=== PATIENT | male | born 1930 | race Caucasian/White ===

== ENCOUNTER 2017-02-15 22:45 | Inpatient (IN) | payer OTHER, MEDICARE ==
--- NOTE | 2017-02-16 00:49 | PDOC ---
History of Present Illness - General History Source: Patient Exam Limitations: No Limitations - History of Present Illness Initial Comments: 02/16/17 01:29 The patient is a 86 year old male with a significant past medical history of TX X2 HAS A STENT, pacemaker in place, BPH, HTN, and Appendectomy, who presents to the ED with fever and chills since . Patient states he had a stress test done on Thursday that showed mild damage to the heart. Patient denies chest pain, SOB, palpitations, nausea, vomiting, diarrhea. Patient denies dysuria, frequency, hematuria, urgency. <Jarocho Hernández - Last Filed: 02/16/17 01:29> <Sultana Berger - Last Filed: 02/16/17 03:30> - General Chief Complaint: SIRS, Suspected/Possible Stated Complaint: HIGH FEVER Time Seen by Provider: 02/16/17 00:48 Past History <Jarocho Hernández - Last Filed: 02/16/17 01:29> - Past Medical History Anemia: No Asthma: No Cancer: Yes (SQUAMOUS CELL FACE-SURGERY) Cardiac Disorders: Yes (TX X2 HAS A STENT) CVA: No COPD: No CHF: No Dementia: No Diabetes: No GI Disorders: No Disorders: No HTN: Yes Hypercholesterolemia: No Liver Disease: No Seizures: No Thyroid Disease: No - Surgical History Appendectomy: Yes Cardiac Surgery: Yes (PACEMAKER) - Psycho/Social/Smoking Cessation Hx Suicidal Ideation: No Smoking History: Never smoked Have you smoked in the past 12 months: No Information on smoking cessation initiated: No Hx Alcohol Use: No Drug/Substance Use Hx: No Substance Use Type: None Hx Substance Use Treatment: No <Sultana Berger - Last Filed: 02/16/17 03:30> - Past Medical History Allergies/Adverse Reactions: Allergies Allergy/AdvReac Type Severity Reaction Status Date / Time Sulfa (Sulfonamide Allergy Severe RASH,HIVES,DIFF Verified 02/15/17 23:37 Antibiotics) BREATHING Home Medications: Ambulatory Orders Ascorbate Calcium [Vitamin C] 1,000 mg PO DAILY 11/20/14 Aspirin [ASA -] 81 mg PO DAILY 11/20/14 Atorvastatin Ca [Lipitor -] 20 mg PO HS 11/20/14 Calcium Carbonate/Vitamin D3 [Calcium + Vitamin D Tablet] 1 each PO DAILY Cyanocobalamin [Vitamin B12 -] 100 mcg PO DAILY 11/20/14 Isosorbide Mononitrate [Imdur] 60 mg PO DAILY 11/20/14 Metoprolol Succinate [Toprol Xl] 50 mg PO DAILY 11/20/14 Tamsulosin HCl [Flomax] 0.4 mg PO DAILY 11/20/14 Ubidecarenone [Co Q-10] 10 mg PO DAILY 11/20/14 Vitamin B Complex 1 each PO DAILY 11/20/14 Apixaban [Eliquis] 5 mg PO BID 02/16/17 Ca/D3/Mag#11/Zinc/Promotion Manager/Lionel/Bor [Caltrate 600+D Plus Tablet] 1 tab PO BID Saw [place] Fruit [Saw [place]] 450 mg PO DAILY 02/16/17 Review of Systems - Review of Systems Able to Perform ROS?: Yes Comments:: 02/16/17 01:29 CONSTITUTIONAL: Present: fever, chills. Absent: diaphoresis, generalized weakness, malaise, loss of appetite HEENT: Absent: rhinorrhea, nasal congestion, throat pain, throat swelling, difficulty swallowing, mouth swelling, ear pain, eye pain, visual Changes CARDIOVASCULAR: Absent: chest pain, syncope, palpitations, irregular heart rate, lightheadedness , peripheral edema RESPIRATORY: Absent: cough, shortness of breath, dyspnea with exertion, orthopnea, wheezing, stridor, hemoptysis GASTROINTESTINAL: Absent: abdominal pain, abdominal distension, nausea, vomiting, diarrhea, constipation, melena, hematochezia GENITOURINARY: Absent: dysuria, frequency, urgency, hesitancy, hematuria, flank pain, genital pain MUSCULOSKELETAL: Absent: myalgia, arthralgia, joint swelling SKIN: Absent: rash, itching, pallor HEMATOLOGIC/IMMUNOLOGIC: Absent: easy bleeding, easy bruising, lymphadenopathy, frequent infections ENDOCRINE: Absent: unexplained weight gain, unexplained weight loss, heat intolerance, cold intolerance NEUROLOGIC: Absent: headache, focal weakness or paresthesias, dizziness, unsteady gait, seizure, mental status changes, bladder or bowel incontinence PSYCHIATRIC: Absent: anxiety, depression, suicidal or homicidal ideation, hallucinations. <Jarocho Hernández - Last Filed: 02/16/17 01:29> *Physical Exam - Vital Signs Last Vital Signs Temp Pulse Resp BP Pulse Ox 101.5 F H 91 H 20 142/77 96 02/15/17 23:40 02/15/17 23:40 02/15/17 23:40 02/15/17 23:40 02/15/17 23:40 - Physical Exam Comments: 02/16/17 01:30 GENERAL: Well developed, well nourished. Awake and alert. No acute distress. HEENT: Normocephalic, atraumatic. PERRLA, EOMI. No conjunctival pallor. Sclera are non- icteric. Moist mucous membranes. Oropharynx is clear. NECK: Supple. Full ROM. No JVD. Carotid pulses 2+ and symmetric, without bruits. No thyromegaly. No lymphadenopathy. CARDIOVASCULAR: Regular rate and rhythm. No murmurs, rubs, or gallops. Distal pulses are 2+ and symmetric. PULMONARY: No evidence of respiratory distress. Lungs clear to auscultation bilaterally. No wheezing, rales or rhonchi. ABDOMINAL: Soft. Non-tender. Non-distended. No rebound or guarding. No organomegaly. Normoactive bowel sounds. MUSCULOSKELETAL Normal range of motion at all joints. No bony deformities or tenderness. No CVA tenderness. EXTREMITIES: No cyanosis. No clubbing. No edema. No calf tenderness. SKIN: Warm and dry. Normal capillary refill. No rashes. No jaundice. NEUROLOGICAL: Alert, awake, appropriate. Cranial nerves 2-12 intact. No deficits to light touch and temperature in face, upper extremities and lower extremities. No motor deficits in the in face, upper extremities and lower extremities. Normoreflexic in the upper and lower extremities. Normal speech. Toes are down-going bilaterally. Gait is normal without ataxia. PSYCHIATRIC: Cooperative. Good eye contact. Appropriate mood and affect. <Jarocho Hernández - Last Filed: 02/16/17 01:29> - Vital Signs Last Vital Signs Temp Pulse Resp BP Pulse Ox 101.5 F H 91 H 20 142/77 96 02/15/17 23:40 02/15/17 23:40 02/15/17 23:40 02/15/17 23:40 02/15/17 23:40 <Sultana Berger - Last Filed: 02/16/17 03:30> ED Treatment Course - LABORATORY CBC & Chemistry Diagram: 02/16/17 01:00 02/16/17 01:00 <Sultana Berger - Last Filed: 02/16/17 03:30> Medical Decision Making - Medical Decision Making 02/16/17 03:27 86 yo male coming from [facility] fever and rigors for several days PMH BPH,thoracic aortic aneurysm,cad -had stress test last week that states was ok - pt had leukocytosis,+infiltrate on cxr -rocephin and zithromax ordered -case discussed w Dr Campos and pt admitted to med/surg <Sultana Berger - Last Filed: 02/16/17 03:30> *DC/Admit/Observation/Transfer - Attestations Scribe Attestion: 02/16/17 01:31 Documentation prepared by Jarocho Hernández, acting as medical assisting instructor for Sultana Berger MD. <Jarocho Hernández - Last Filed: 02/16/17 01:29> - Discharge Dispostion Admit: Yes <Sultana Berger - Last Filed: 02/16/17 03:30> Diagnosis at time of Disposition: Sepsis Qualifiers: Sepsis type: sepsis due to unspecified organism Qualified Code(s): A41.9 - Sepsis, unspecified organism - Referrals
[2017-02-16 01:39] LABS: BASOPHIL 0.2 % (0-2.0); MCH 30.7 pg (25.7-33.7); MCHC 32.8 g/dl (32.0-35.9); MEAN CELL VOLUME 93.5 fl (80-96); MEAN PLT VOLUME 11.4 fl (7.5-11.1); NEUTROPHILS 86.4 % (42.8-82.8); PLATELET COUNT 138 K/MM3 (134-434); RDW 13.8 % (11.9-15.9); WHITE BLOOD COUNT 15.4 K/mm3 (4.0-10.0)
[2017-02-16 01:41] LABS: URINE APPEARANCE CLEAR; URINE BILIRUBIN NEGATIVE (NEGATIVE); URINE COLOR AMBER; URINE GLUCOSE (UA) NEGATIVE (NEGATIVE); URINE KETONE TRACE (NEGATIVE); URINE LEUK ESTERASE NEGATIVE (NEGATIVE); URINE NITRITE NEGATIVE (NEGATIVE); URINE UROBILINOGEN 4.0 E.U/dl mg/dL (0.2-1.0)
[2017-02-16 01:45] LABS: VENOUS PH 7.45 (7.32-7.42)
[2017-02-16 01:45] LABS: URINE BLOOD 1+ (NEGATIVE); URINE PROTEIN 2+ (NEGATIVE)
[2017-02-16 01:46] LABS: VENOUS BLOOD GAS HCO3 28.6 meq/L (19-25)
[2017-02-16 01:48] LABS: URINE MUCUS RARE; URINE RBC 1 /hpf (0-3); URINE WBC 1 /hpf (3-5)
[2017-02-16 01:51] LABS: INR 1.82 (0.82-1.09); PROTHROMBIN TIME (PATIENT) 20.3 SEC (9.98-11.88)
[2017-02-16 01:54] LABS: ACTIVATED PTT 36.2 SECONDS (26.9-34.4)
[2017-02-16] MEDS: ACETAMINOPHEN 325 MG TABLET (FP) PO PRN ×3 (01:55→17:08)
[2017-02-16 02:03] LABS: ALBUMIN 3.8 g/dl (3.4-5.0); ANION GAP 8 (8-16); BILIRUBIN,TOTAL 2.7 mg/dL (0.2-1.0); CALCIUM 8.6 mg/dL (8.5-10.1); CO2 30 mmol/L (21-32); GLUCOSE,RANDOM 133 mg/dL (74-106); SGOT/AST 42 U/L (15-37); SGPT/ALT 40 U/L (12-78); TOT PROT 6.7 g/dl (6.4-8.2)
[2017-02-16 02:06] LABS: ALK PHOS 89 U/L (45-117); TROPONIN I 0.03 ng/ml (0.00-0.05)
[2017-02-16] MEDS ORDERED: AZITHROMYCIN IVPB 500 MG in DEXTROSE 5%-WATER - 250 ML IVPB STA (02:26)
[2017-02-16] MEDS ORDERED: AZITHROMYCIN IVPB 250 ML IVPB ONE (02:40)
[2017-02-16 04:29] VITALS: BMI 32.7
[2017-02-16] MEDS: TAMSULOSIN HCL 0.4 MG CAP.ER.24H (FP) PO SCH (08:42)
[2017-02-16] MEDS ORDERED: CEFTRIAXONE 1 GM in DEXTROSE 5%-WATER - 50 ML IVPB SCH (10:00)
[2017-02-16] MEDS ORDERED: cefTRIAXone 1 GM/50 ML BAG (PRE-DOCKED) IVPB SCH (10:00)
[2017-02-16] MEDS ORDERED: PT OWN MED DRAWER 7, Y5N ONE (10:50)
[2017-02-16] MEDS: ASPIRIN 81 MG CHEWABLE TABLETS PO SCH (11:06)
[2017-02-16] MEDS: ISOSORBIDE MONONITRATE 60 MG TAB.SR.24H (FP) PO SCH (11:06)
[2017-02-16] MEDS: PANTOPRAZOLE 40 MG TABLET (FP) PO SCH (11:07)
[2017-02-16] MEDS: METOPROLOL SUCCINATE 50 MG TAB.SR.24H (FP) PO SCH (11:07)
--- NOTE | 2017-02-16 11:47 | HP ---
Admitting History and Physical - Primary Care Physician PCP: Taj Moran - Admission Chief Complaint: I was shaking History of Present Illness: Mr Magallanes is an 86 year old male who comes in with fevers and rigors. He is an unclear historian but says he was doing well last week. He had a stress test on Thursday and Thursday that he says was normal. He then presented to his urologist for an evaluation of his prostate cancer. It is unclear whether he had intervention done or not, upon clarification he said he both did and did not but at the end says it was a simple check up and no intervention occurred. However after this he began to shake. He was also sweating with this as well. He went home and states he had on and off shaking with sweating. Yesterday the shaking became so severe he decided to come in because he was unable to walk. He denies lightheadedness, dizziness, passing out, chest pain, coughing, shortness of breath, nausea, vomiting, abdominal pain, diarrhea, constipation, swelling, or rash. He has some chronic difficulty urinating but it is not painful. History Source: Patient Limitations to Obtaining History: No Limitations - Past Medical History Cardiovascular: Yes: AFIB, CAD, HTN Renal/: Yes: BPH - Past Surgical History Past Surgical History: Yes: Permanent Pacemaker, Stent - Smoking History Smoking history: Never smoked Have you smoked in the past 12 months: No - Alcohol/Substance Use Hx Alcohol Use: No History of Substance Use: reports: None - Social History Usual Living Arrangement: Yes: With Spouse ADL: Independent History of Recent Travel: No Home Medications - Allergies Allergies/Adverse Reactions: Allergies Allergy/AdvReac Type Severity Reaction Status Date / Time Sulfa (Sulfonamide Allergy Severe RASH,HIVES,DIFF Verified 02/15/17 23:37 Antibiotics) BREATHING - Home Medications Home Medications: Ambulatory Orders Ascorbate Calcium [Vitamin C] 1,000 mg PO DAILY 11/20/14 Aspirin [ASA -] 81 mg PO DAILY 11/20/14 Atorvastatin Ca [Lipitor -] 20 mg PO HS 11/20/14 Calcium Carbonate/Vitamin D3 [Calcium + Vitamin D Tablet] 1 each PO DAILY Cyanocobalamin [Vitamin B12 -] 100 mcg PO DAILY 11/20/14 Isosorbide Mononitrate [Imdur] 60 mg PO DAILY 11/20/14 Metoprolol Succinate [Toprol Xl] 50 mg PO DAILY 11/20/14 Tamsulosin HCl [Flomax] 0.4 mg PO DAILY 11/20/14 Ubidecarenone [Co Q-10] 10 mg PO DAILY 11/20/14 Vitamin B Complex 1 each PO DAILY 11/20/14 Apixaban [Eliquis] 5 mg PO BID 02/16/17 Ca/D3/Mag#11/Zinc/Director Ambulatory/Lionel/Bor [Caltrate 600+D Plus Tablet] 1 tab PO BID Saw [place] Fruit [Saw [place]] 450 mg PO DAILY 02/16/17 Family Disease History - Family Disease History Family Disease History: Heart Disease: Father Review of Systems Findings/Remarks: full review of systems obtained, as per HPI and otherwise negative Physical Examination Vital Signs: Vital Signs Temperature 100.4 F H 02/16/17 10:45 Pulse Rate 94 H 02/16/17 10:36 Respiratory Rate 20 02/16/17 10:00 Blood Pressure 161/89 02/16/17 10:00 O2 Sat by Pulse Oximetry (%) 95 02/16/17 10:36 Constitutional: Yes: Well Nourished, No Distress, Calm Eyes: Yes: Conjunctiva Clear, EOM Intact, PERRL HENT: Yes: Atraumatic, Normocephalic Cardiovascular: Yes: Pulse Irregular. No: Tachycardia, Gallop, Murmur, Rub Respiratory: Yes: Regular, CTA Bilaterally. No: Rales, Rhonchi, Wheezes Gastrointestinal: Yes: Normal Bowel Sounds, Soft. No: Distention, Tenderness Extremities: Yes: WNL Edema: No Labs: Laboratory Results - last 24 hr 02/16/17 02/16/17 02/16/17 01:00 01:00 01:00 WBC 15.4 H RBC 4.18 Hgb 12.8 Hct 39.1 MCV 93.5 MCH 30.7 MCHC 32.8 RDW 13.8 Plt Count 138 MPV 11.4 H Neutrophils % 86.4 H Lymphocytes % 5.3 L Monocytes % 8.1 Eosinophils % 0.0 Basophils % 0.2 INR 1.82 H D PTT (Actin FS) 36.2 H VBG pH POC VBG pCO2 POC VBG pO2 Mixed VBG HCO3 Sodium Potassium Chloride Carbon Dioxide Anion Gap BUN Creatinine Creat Clearance w eGFR Random Glucose Lactic Acid Calcium Total Bilirubin AST ALT Alkaline Phosphatase Creatine Kinase Troponin I Total Protein Albumin Urine Color Zoe Urine Appearance Clear Urine pH 5.0 Ur Specific [place] 1.020 Urine Protein 2+ H Urine Glucose (UA) Negative Urine Ketones Trace H Urine Blood 1+ H Urine Nitrite Negative Urine Bilirubin Negative Urine Urobilinogen 4.0 e.u/dl Ur Leukocyte Esterase Negative Urine RBC 1 Urine WBC 1 Ur Epithelial Cells Rare Urine Mucus Rare Blood Type Antibody Screen 02/16/17 02/16/17 02/16/17 01:00 01:00 01:00 WBC RBC Hgb Hct MCV MCH MCHC RDW Plt Count MPV Neutrophils % Lymphocytes % Monocytes % Eosinophils % Basophils % INR PTT (Actin FS) VBG pH POC VBG pCO2 POC VBG pO2 Mixed VBG HCO3 Sodium 139 Potassium 3.7 Chloride 101 Carbon Dioxide 30 Anion Gap 8 BUN 22 H Creatinine 1.0 Creat Clearance w eGFR > 60 Random Glucose 133 H Lactic Acid 1.4 Calcium 8.6 Total Bilirubin 2.7 H AST 42 H ALT 40 Alkaline Phosphatase 89 Creatine Kinase 91 Troponin I 0.03 Total Protein 6.7 Albumin 3.8 Urine Color Urine Appearance Urine pH Ur Specific [place] Urine Protein Urine Glucose (UA) Urine Ketones Urine Blood Urine Nitrite Urine Bilirubin Urine Urobilinogen Ur Leukocyte Esterase Urine RBC Urine WBC Ur Epithelial Cells Urine Mucus Blood Type B POSITIVE Antibody Screen Negative 02/16/17 01:33 WBC RBC Hgb Hct MCV MCH MCHC RDW Plt Count MPV Neutrophils % Lymphocytes % Monocytes % Eosinophils % Basophils % INR PTT (Actin FS) VBG pH 7.45 H POC VBG pCO2 41.9 POC VBG pO2 19.9 L* Mixed VBG HCO3 28.6 H Sodium Potassium Chloride Carbon Dioxide Anion Gap BUN Creatinine Creat Clearance w eGFR Random Glucose Lactic Acid Calcium Total Bilirubin AST ALT Alkaline Phosphatase Creatine Kinase Troponin I Total Protein Albumin Urine Color Urine Appearance Urine pH Ur Specific [place] Urine Protein Urine Glucose (UA) Urine Ketones Urine Blood Urine Nitrite Urine Bilirubin Urine Urobilinogen Ur Leukocyte Esterase Urine RBC Urine WBC Ur Epithelial Cells Urine Mucus Blood Type Antibody Screen Imaging - Results Chest X-ray: Report Reviewed, Image Reviewed EKG: Image Reviewed Problem List - Problems (1) Sepsis Assessment/Plan: -unclear source -continue rocephin and zithromax -follow up cultures -if continues to have fevers, consult ID Code(s): A41.9 - SEPSIS, UNSPECIFIED ORGANISM Qualifiers: Sepsis type: sepsis due to unspecified organism Qualified Code(s): A41.9 - Sepsis, unspecified organism (2) Atrial fibrillation Assessment/Plan: -rate controlled -continue eliquis and toprol xl Code(s): I48.91 - UNSPECIFIED ATRIAL FIBRILLATION Qualifiers: Atrial fibrillation type: chronic Qualified Code(s): I48.2 - Chronic atrial fibrillation (3) HTN (hypertension) Assessment/Plan: -continue toprol xl and imdur -monitor Code(s): I10 - ESSENTIAL (PRIMARY) HYPERTENSION (4) CAD (coronary artery disease) Assessment/Plan: -quiescent -continue home regimen Code(s): I25.10 - ATHSCL HEART DISEASE OF [place] CORONARY ARTERY W/O ANG PCTRS (5) BPH (benign prostatic hyperplasia) Assessment/Plan: -continue flomax Code(s): N40.0 - BENIGN PROSTATIC HYPERPLASIA WITHOUT LOWER URINRY TRACT SYMP
[2017-02-16] MEDS: CEFTRIAXONE 1 GM in DEXTROSE 5%-WATER - 50 ML IVPB SCH (11:56)
--- NOTE | 2017-02-16 12:34 | EKG ---
Test Reason : Blood Pressure : / mmHG Vent. Rate : 081 BPM Atrial Rate : 138 BPM P-R Int : 000 ms QRS Dur : 120 ms QT Int : 350 ms P-R-T Axes : 000 -75 082 degrees QTc Int : 406 ms ATRIAL FIBRILLATION LEFT AXIS DEVIATION CANNOT RULE OUT INFERIOR INFARCT (CITED ON OR BEFORE 19-SEP-1999) CANNOT RULE OUT ANTERIOR INFARCT (CITED ON OR BEFORE 19-SEP-1999) ABNORMAL ECG WHEN COMPARED WITH ECG OF 15-JUL-2006 14:54, NO SIGNIFICANT CHANGE WAS FOUND Confirmed by BRIAN GRAMAJO MD ([id number]) on 02/16/2017 12:34:04 PM Referred By: Confirmed By:BRIAN GRAMAJO MD
[2017-02-16] MEDS: ATORVASTATIN CA 20 MG TABLET (FP) PO SCH (21:26)
[2017-02-16] MEDS: APIXABAN 5 MG TABLET PO SCH (21:26)
[2017-02-17] MEDS: ACETAMINOPHEN 325 MG TABLET (FP) PO PRN ×2 (00:55→14:53)
[2017-02-17 08:13] LABS: BASOPHIL 0.1 % (0-2.0); MCH 31.5 pg (25.7-33.7); MCHC 34.2 g/dl (32.0-35.9); MEAN CELL VOLUME 92.3 fl (80-96); MEAN PLT VOLUME 10.8 fl (7.5-11.1); NEUTROPHILS 84.5 % (42.8-82.8); PLATELET COUNT 127 K/MM3 (134-434); RDW 13.8 % (11.9-15.9); WHITE BLOOD COUNT 10.5 K/mm3 (4.0-10.0)
[2017-02-17 08:18] LABS: ANION GAP 7 (8-16); CALCIUM 8.1 mg/dL (8.5-10.1); CO2 31 mmol/L (21-32); CREATININE 0.8 mg/dL (0.7-1.3); GLUCOSE,RANDOM 111 mg/dL (74-106); MAGNESIUM 2.3 mg/dL (1.8-2.4)
[2017-02-17] MEDS: TAMSULOSIN HCL 0.4 MG CAP.ER.24H (FP) PO SCH (08:49)
[2017-02-17] MEDS ORDERED: cefTRIAXone SODIUM 1 GM VIAL ONE ×2 (09:56→09:57)
[2017-02-17] MEDS ORDERED: DEXTROSE 5%-WATER - 50 ML IVPB ONE ×2 (09:56→17:35)
[2017-02-17] MEDS: APIXABAN 5 MG TABLET PO SCH ×2 (09:59→22:06)
[2017-02-17] MEDS: ISOSORBIDE MONONITRATE 60 MG TAB.SR.24H (FP) PO SCH (09:59)
[2017-02-17] MEDS: ASPIRIN 81 MG CHEWABLE TABLETS PO SCH (09:59)
[2017-02-17] MEDS: PANTOPRAZOLE 40 MG TABLET (FP) PO SCH (09:59)
[2017-02-17] MEDS ORDERED: CEFTRIAXONE 1 GM in DEXTROSE 5%-WATER - 50 ML IVPB SCH (10:00)
[2017-02-17] MEDS: CEFTRIAXONE 1 GM in DEXTROSE 5%-WATER - 50 ML IVPB SCH (10:00)
[2017-02-17] MEDS: METOPROLOL SUCCINATE 50 MG TAB.SR.24H (FP) PO SCH (10:00)
[2017-02-17] MEDS: AZITHROMYCIN IVPB 250 ML IVPB SCH (10:50)
--- NOTE | 2017-02-17 15:02 | PN ---
Progress Note, Physician Chief Complaint: Mr Magallanes says he is feeling better today. No cp, sob, n/v. However having fevers. - Current Medication List Current Medications: Active Medications Acetaminophen (Tylenol -) 650 mg PO Q6H PRN PRN Reason: FEVER OR PAIN Last Admin: 02/17/17 14:53 Dose: 650 mg Apixaban (Eliquis -) 5 mg PO BID [facility] Last Admin: 02/17/17 09:59 Dose: 5 mg Aspirin (Asa -) 81 mg PO DAILY [facility] Last Admin: 02/17/17 09:59 Dose: 81 mg Atorvastatin Calcium (Lipitor -) 20 mg PO HS [facility] Last Admin: 02/16/17 21:26 Dose: 20 mg Azithromycin (Zithromax 500mg Ivpb (Pre-Docked)) 250 mls @ 250 mls/hr IVPB DAILY [facility] Last Admin: 02/17/17 10:50 Dose: 250 mls/hr Ceftriaxone Sodium 1 gm/ (Dextrose) 50 mls @ 100 mls/hr IVPB DAILY [facility] Last Admin: 02/17/17 10:00 Dose: 100 mls/hr Isosorbide Mononitrate (Imdur -) 60 mg PO DAILY [facility] Last Admin: 02/17/17 09:59 Dose: 60 mg Metoprolol Succinate (Toprol Xl -) 50 mg PO DAILY [facility] Last Admin: 02/17/17 10:00 Dose: 50 mg Pantoprazole Sodium (Protonix -) 40 mg PO DAILY [facility] Last Admin: 02/17/17 09:59 Dose: 40 mg Tamsulosin HCl (Flomax -) 0.4 mg PO DAILY@0830 [facility] Last Admin: 02/17/17 08:49 Dose: 0.4 mg - Objective Vital Signs: Vital Signs Temperature 99.8 F H 02/17/17 10:00 Pulse Rate 80 02/17/17 10:00 Respiratory Rate 20 02/17/17 10:00 Blood Pressure 164/90 02/17/17 10:00 O2 Sat by Pulse Oximetry (%) 94 L 02/17/17 09:00 Constitutional: Yes: Well Nourished, No Distress, Calm Cardiovascular: Yes: Regular Rate and Rhythm. No: Gallop, Murmur, Rub Respiratory: Yes: Regular, CTA Bilaterally. No: Rales, Rhonchi, Wheezes Gastrointestinal: Yes: Normal Bowel Sounds, Soft. No: Distention, Tenderness Extremities: Yes: WNL Edema: No Labs: CBC, BMP 02/17/17 06:55 02/17/17 06:55 INR, PTT INR 1.82 (0.82-1.09) H D 02/16/17 01:00 Problem List - Problems (1) Sepsis Code(s): A41.9 - SEPSIS, UNSPECIFIED ORGANISM Qualifiers: Sepsis type: sepsis due to unspecified organism Qualified Code(s): A41.9 - Sepsis, unspecified organism (2) Atrial fibrillation Code(s): I48.91 - UNSPECIFIED ATRIAL FIBRILLATION Qualifiers: Atrial fibrillation type: chronic Qualified Code(s): I48.2 - Chronic atrial fibrillation (3) HTN (hypertension) Code(s): I10 - ESSENTIAL (PRIMARY) HYPERTENSION (4) CAD (coronary artery disease) Code(s): I25.10 - ATHSCL HEART DISEASE OF [place] CORONARY ARTERY W/O ANG PCTRS (5) BPH (benign prostatic hyperplasia) Code(s): N40.0 - BENIGN PROSTATIC HYPERPLASIA WITHOUT LOWER URINRY TRACT SYMP Assessment/Plan (1) Sepsis Assessment/Plan: -blood cultures NGTD so far -urine cultures contaminated -still with fevers -will consult ID Code(s): A41.9 - SEPSIS, UNSPECIFIED ORGANISM Qualifiers: Sepsis type: sepsis due to unspecified organism Qualified Code(s): A41.9 - Sepsis, unspecified organism (2) Atrial fibrillation Assessment/Plan: -rate controlled -continue eliquis and toprol xl Code(s): I48.91 - UNSPECIFIED ATRIAL FIBRILLATION Qualifiers: Atrial fibrillation type: chronic Qualified Code(s): I48.2 - Chronic atrial fibrillation (3) HTN (hypertension) Assessment/Plan: -elevated -may be secondary to fevers -monitor -if persistently high, will adjust medications Code(s): I10 - ESSENTIAL (PRIMARY) HYPERTENSION (4) CAD (coronary artery disease) Assessment/Plan: -quiescent -continue home regimen Code(s): I25.10 - ATHSCL HEART DISEASE OF [place] CORONARY ARTERY W/O ANG PCTRS (5) BPH (benign prostatic hyperplasia) Assessment/Plan: -continue flomax Code(s): N40.0 - BENIGN PROSTATIC HYPERPLASIA WITHOUT LOWER URINRY TRACT SYMP
--- NOTE | 2017-02-17 15:52 | PN ---
Progress Note (short form) - Note Progress Note: ID Consult dictated Fever- suspect RLL pneumonia Possible sepsis secondary to pneumonia Jaundice, possible biliary tract diease Leukocytosis/ thrombocytopenia secondary to sepsis Repeat BC Sputum c/s legionella/ pneumococcal ag CT chest R/O RLL pneumonia Liver US Empiric coverage pulmonary/ biliary tract pathogens with zosyn/ zithromax
[2017-02-17] MEDS ORDERED: PIPERACILLIN/TAZOB 3.375 GM 3.375 GM in DEXTROSE 5%-WATER - 50 ML IVPB SCH (16:00)
--- NOTE | 2017-02-17 17:06 | CONS ---
INFECTIOUS DISEASE CONSULTATION DATE OF CONSULTATION: DATE OF DICTATION: 02/17/2017 HISTORY OF PRESENT ILLNESS: The patient is an 86-year-old male with a history of coronary artery disease, evaluated for fever. History was obtained from the patient, his , and the chart. He reports feeling well until last week. He had gone for a 2-part stress test on Thursday and Thursday of last week, which he completely successfully and was feeling well. The following day, he had visited his urologist for a routine checkup. He reports that he was examined. However, no invasive procedure was performed. Shortly thereafter, on or about , February 12, 2017, he began to experience generalized weakness, shaking chills, and intermittent fever. The symptoms persisted. He also reported cough productive of whitish sputum. He presented to the emergency room where he was noted to be febrile and with an elevated white blood cell count. He was admitted to the hospital. He was empirically treated with Zithromax and ceftriaxone. Despite the antibiotic therapy, he had persistent high-grade fever. Patient complains of intermittent fever and chills. However, otherwise, has been feeling relatively well. He did have an episode of right-sided, pleuritic-type chest pain and continues to have an occasional cough. He denies any chest pain and no complaints of abdominal pain, nausea, or vomiting. He reports he had a normal bowel movement today. He does have urinary retention secondary to BPH. He denies any dysuria or hematuria. PAST MEDICAL HISTORY: Positive for coronary artery disease, myocardial infarction x2, coronary artery stent, BPH, hypertension, thoracic aortic aneurysm, squamous cell carcinoma of the face. PAST SURGICAL HISTORY: Status post permanent pacemaker and appendectomy. ALLERGIES: SULFA. MEDICATIONS: Flomax, Tylenol, Eliquis, Toprol, Lipitor, Imdur, aspirin, Protonix. SOCIAL HISTORY: He lives at home with his . He is unsure of any ill contacts. He has had no recent hospitalizations. He is a nonsmoker. No EtOH. No significant travel history. SYSTEMS REVIEW: Neurologic: No loss of consciousness, seizure activity, or focal weakness. Cardiac: Positive for atrial fibrillation. Respiratory: As per HPI. Gastrointestinal: Negative vomiting or diarrhea. Genitourinary: As per HPI. LABORATORY DATA: White count on admission 15.4; neutrophils 86, lymphocytes 5, monocytes 8; hematocrit 37.2; platelet count 127. BUN 21, creatinine 0.8. Total bilirubin 2.7. Alkaline phosphatase 89, AST 42. Urinalysis: White cells 1. Chest x-ray showed some increased markings at the right base, possible infiltrate. PHYSICAL EXAMINATION: General: He is ambulatory. He is awake and alert. He is in no acute distress. His breathing is non-labored. Vital Signs: Temperature 102.5; blood pressure 124/59; pulse 87, irregular; respirations 18 per minute. HEENT: Mild sclerae icterus. Oropharynx negative. Neck: Supple. No palpable nodes. Cardiac: Heart sounds irregular. S1 and S2, with a 2/6 pansystolic murmur. Lungs: Crepitations at the right base. No wheezing or rhonchi. Abdomen: Obese, soft. No tenderness elicited. No mass, rebound. No rigidity. Extremities: Positive for bilateral lower extremity edema, 2+. Negative Homans sign. IMPRESSION: 1. Fever, probable right lower lobe pneumonia. 2. Possible sepsis secondary to pneumonia. 3. Jaundice, rule out biliary tract disease. 4. Leukocytosis/thrombocytopenia secondary to sepsis. 5. Coronary artery disease. We will repeat cultures in light of high-grade fever, obtain sputum culture, urine Legionella and pneumococcal antigens. CAT scan of the chest to further assess changes at the right base on chest x-ray. Abdominal sonogram to rule out biliary tract disease in light of jaundice. Empirical antibiotic coverage of pulmonary and biliary tract pathogens with Zosyn and Zithromax. Case discussed with patient's , present at the time of the examination. Will follow. Thank you for the kind referral. KAYLA ESCUDERO M.D. [id number]
[2017-02-17] MEDS ORDERED: PIPERACILLIN/TAZOBACTAM 3.375 GM VIAL IVPB ONE (17:34)
[2017-02-17] MEDS: PIPERACILLIN/TAZOB 3.375 GM 3.375 GM in DEXTROSE 5%-WATER - 50 ML IVPB SCH (18:01)
[2017-02-17] MEDS: ATORVASTATIN CA 20 MG TABLET (FP) PO SCH (22:06)
[2017-02-18] MEDS ORDERED: PIPERACILLIN/TAZOBACTAM 3.375 GM VIAL IVPB ONE ×4 (01:54→21:33)
[2017-02-18] MEDS ORDERED: DEXTROSE 5%-WATER - 50 ML IVPB ONE ×4 (01:55→21:33)
[2017-02-18] MEDS: PIPERACILLIN/TAZOB 3.375 GM 3.375 GM in DEXTROSE 5%-WATER - 50 ML IVPB SCH ×3 (01:58→17:20)
[2017-02-18] MEDS: ACETAMINOPHEN 325 MG TABLET (FP) PO PRN (02:13)
[2017-02-18 08:24] LABS: ANION GAP 8 (8-16); CALCIUM 8.4 mg/dL (8.5-10.1); CO2 30 mmol/L (21-32); CREATININE 0.9 mg/dL (0.7-1.3); GLUCOSE,RANDOM 98 mg/dL (74-106); MAGNESIUM 2.3 mg/dL (1.8-2.4); PHOSPHOROUS 2.8 mg/dL (2.5-4.9)
[2017-02-18 08:26] LABS: BASOPHIL 0.1 % (0-2.0); EOSINOPHIL 0.8 % (0-4.5); MCH 31.7 pg (25.7-33.7); MCHC 34.5 g/dl (32.0-35.9); MEAN CELL VOLUME 91.9 fl (80-96); MEAN PLT VOLUME 10.6 fl (7.5-11.1); NEUTROPHILS 79.2 % (42.8-82.8); PLATELET COUNT 162 K/MM3 (134-434); RDW 13.9 % (11.9-15.9); WHITE BLOOD COUNT 9.3 K/mm3 (4.0-10.0)
[2017-02-18] MEDS: TAMSULOSIN HCL 0.4 MG CAP.ER.24H (FP) PO SCH (08:26)
[2017-02-18 08:31] LABS: ALBUMIN 2.9 g/dl (3.4-5.0); BILIRUBIN,DIRECT 0.7 mg/dL (0.0-0.2); BILIRUBIN,TOTAL 1.3 mg/dL (0.2-1.0); TOT PROT 5.7 g/dl (6.4-8.2)
[2017-02-18] MEDS ORDERED: PT OWN MED DRAWER 7, Y5N ONE (09:48)
[2017-02-18] MEDS: APIXABAN 5 MG TABLET PO SCH ×2 (09:53→22:16)
[2017-02-18] MEDS: ASPIRIN 81 MG CHEWABLE TABLETS PO SCH (09:53)
[2017-02-18] MEDS: ISOSORBIDE MONONITRATE 60 MG TAB.SR.24H (FP) PO SCH (09:54)
[2017-02-18] MEDS: METOPROLOL SUCCINATE 50 MG TAB.SR.24H (FP) PO SCH (09:54)
[2017-02-18] MEDS: PANTOPRAZOLE 40 MG TABLET (FP) PO SCH (09:54)
[2017-02-18] MEDS: AZITHROMYCIN IVPB 250 ML IVPB SCH (09:55)
--- NOTE | 2017-02-18 10:59 | PN ---
Progress Note, Physician History of Present Illness: OOB in chair C/O profuse sweats last evening Occasional cough; scant sputum production No c/o dyspnea/ chest pain Remains febrile WBC improved - Current Medication List Current Medications: Active Medications Acetaminophen (Tylenol -) 650 mg PO Q6H PRN PRN Reason: FEVER OR PAIN Last Admin: 02/18/17 02:13 Dose: 650 mg Apixaban (Eliquis -) 5 mg PO BID [facility] Last Admin: 02/18/17 09:53 Dose: 5 mg Aspirin (Asa -) 81 mg PO DAILY [facility] Last Admin: 02/18/17 09:53 Dose: 81 mg Atorvastatin Calcium (Lipitor -) 20 mg PO HS [facility] Last Admin: 02/17/17 22:06 Dose: 20 mg Azithromycin (Zithromax 500mg Ivpb (Pre-Docked)) 250 mls @ 250 mls/hr IVPB DAILY [facility] Last Admin: 02/18/17 09:55 Dose: 250 mls/hr Piperacillin Sod/Tazobactam (Sod 3.375 gm/ Dextrose) 50 mls @ 100 mls/hr IVPB Q8H-IV [facility]IO[facility] PRN Reason: Protocol Last Admin: 02/18/17 09:54 Dose: 100 mls/hr Isosorbide Mononitrate (Imdur -) 60 mg PO DAILY [facility] Last Admin: 02/18/17 09:54 Dose: 60 mg Metoprolol Succinate (Toprol Xl -) 50 mg PO DAILY [facility] Last Admin: 02/18/17 09:54 Dose: 50 mg Pantoprazole Sodium (Protonix -) 40 mg PO DAILY [facility] Last Admin: 02/18/17 09:54 Dose: 40 mg Tamsulosin HCl (Flomax -) 0.4 mg PO DAILY@0830 [facility] Last Admin: 02/18/17 08:26 Dose: 0.4 mg - Objective Vital Signs: Vital Signs Temperature 97.9 F 02/18/17 06:47 Pulse Rate 84 02/18/17 09:28 Respiratory Rate 20 02/18/17 06:47 Blood Pressure 142/89 02/18/17 06:47 O2 Sat by Pulse Oximetry (%) 92 L 02/18/17 09:28 Constitutional: Yes: No Distress Eyes: Yes: Conjunctiva Clear Cardiovascular: Yes: Regular Rate and Rhythm, S1, S2 Respiratory: Yes: Diminished, Other (decreased BS R base with few crepitations) Gastrointestinal: Yes: Normal Bowel Sounds, Soft. No: Tenderness Edema: Yes Labs: CBC, BMP 02/18/17 06:30 02/18/17 06:30 INR, PTT INR 1.82 (0.82-1.09) H D 02/16/17 01:00 Assessment/Plan RLL pneumonia Possible sepsis secondary to pneumonia Jaundice- improved Leukocytosis/ thrombocytopenia- resolved Await blood, sputum c/s Check liver US Continue zithromax/ zosyn
--- NOTE | 2017-02-18 13:55 | PN ---
Progress Note, Physician Chief Complaint: Mr Magallanes is without complaint. No cp, sob, n/v. Last fever at 0200 today. - Current Medication List Current Medications: Active Medications Acetaminophen (Tylenol -) 650 mg PO Q6H PRN PRN Reason: FEVER OR PAIN Last Admin: 02/18/17 02:13 Dose: 650 mg Apixaban (Eliquis -) 5 mg PO BID [facility] Last Admin: 02/18/17 09:53 Dose: 5 mg Aspirin (Asa -) 81 mg PO DAILY [facility] Last Admin: 02/18/17 09:53 Dose: 81 mg Atorvastatin Calcium (Lipitor -) 20 mg PO HS [facility] Last Admin: 02/17/17 22:06 Dose: 20 mg Azithromycin (Zithromax 500mg Ivpb (Pre-Docked)) 250 mls @ 250 mls/hr IVPB DAILY [facility] Last Admin: 02/18/17 09:55 Dose: 250 mls/hr Piperacillin Sod/Tazobactam (Sod 3.375 gm/ Dextrose) 50 mls @ 100 mls/hr IVPB Q8H-IV SIOBHAN PRN Reason: Protocol Last Admin: 02/18/17 09:54 Dose: 100 mls/hr Isosorbide Mononitrate (Imdur -) 60 mg PO DAILY [facility] Last Admin: 02/18/17 09:54 Dose: 60 mg Metoprolol Succinate (Toprol Xl -) 50 mg PO DAILY [facility] Last Admin: 02/18/17 09:54 Dose: 50 mg Pantoprazole Sodium (Protonix -) 40 mg PO DAILY [facility] Last Admin: 02/18/17 09:54 Dose: 40 mg Tamsulosin HCl (Flomax -) 0.4 mg PO DAILY@0830 [facility] Last Admin: 02/18/17 08:26 Dose: 0.4 mg - Objective Vital Signs: Vital Signs Temperature 97.9 F 02/18/17 06:47 Pulse Rate 84 02/18/17 09:28 Respiratory Rate 20 02/18/17 06:47 Blood Pressure 142/89 02/18/17 06:47 O2 Sat by Pulse Oximetry (%) 92 L 02/18/17 09:28 Constitutional: Yes: Well Nourished, No Distress, Calm Cardiovascular: Yes: Pulse Irregular. No: Tachycardia, Gallop, Murmur Respiratory: Yes: Regular, CTA Bilaterally. No: Rales, Rhonchi, Wheezes Gastrointestinal: Yes: Normal Bowel Sounds, Soft. No: Distention, Tenderness Extremities: Yes: WNL Edema: No Labs: CBC, BMP 02/18/17 06:30 02/18/17 06:30 INR, PTT INR 1.82 (0.82-1.09) H D 02/16/17 01:00 Problem List - Problems (1) Sepsis Code(s): A41.9 - SEPSIS, UNSPECIFIED ORGANISM Qualifiers: Sepsis type: sepsis due to unspecified organism Qualified Code(s): A41.9 - Sepsis, unspecified organism (2) Atrial fibrillation Code(s): I48.91 - UNSPECIFIED ATRIAL FIBRILLATION Qualifiers: Atrial fibrillation type: chronic Qualified Code(s): I48.2 - Chronic atrial fibrillation (3) HTN (hypertension) Code(s): I10 - ESSENTIAL (PRIMARY) HYPERTENSION (4) CAD (coronary artery disease) Code(s): I25.10 - ATHSCL HEART DISEASE OF [place] CORONARY ARTERY W/O ANG PCTRS (5) BPH (benign prostatic hyperplasia) Code(s): N40.0 - BENIGN PROSTATIC HYPERPLASIA WITHOUT LOWER URINRY TRACT SYMP Assessment/Plan (1) Sepsis secondary to pneumonia Assessment/Plan: -reviewed CT scan -positive for pneumonia -rocephin changed to zosyn -continue zithromax -case d/w Dr Alexander Code(s): A41.9 - SEPSIS, UNSPECIFIED ORGANISM Qualifiers: Sepsis type: sepsis due to unspecified organism Qualified Code(s): A41.9 - Sepsis, unspecified organism (2) Atrial fibrillation Assessment/Plan: -rate controlled -continue eliquis and toprol xl Code(s): I48.91 - UNSPECIFIED ATRIAL FIBRILLATION Qualifiers: Atrial fibrillation type: chronic Qualified Code(s): I48.2 - Chronic atrial fibrillation (3) HTN (hypertension) Assessment/Plan: -improved today -continue current regimen -monitor Code(s): I10 - ESSENTIAL (PRIMARY) HYPERTENSION (4) CAD (coronary artery disease) Assessment/Plan: -quiescent -continue home regimen Code(s): I25.10 - ATHSCL HEART DISEASE OF [place] CORONARY ARTERY W/O ANG PCTRS (5) BPH (benign prostatic hyperplasia) Assessment/Plan: -continue flomax Code(s): N40.0 - BENIGN PROSTATIC HYPERPLASIA WITHOUT LOWER URINRY TRACT SYMP (6) Elevated LFTs -improving -abdominal ultrasound ordered
[2017-02-18] MEDS: ATORVASTATIN CA 20 MG TABLET (FP) PO SCH (22:16)
[2017-02-19] MEDS: PIPERACILLIN/TAZOB 3.375 GM 3.375 GM in DEXTROSE 5%-WATER - 50 ML IVPB SCH ×3 (02:09→17:59)
[2017-02-19 08:09] LABS: BASOPHIL 0.2 % (0-2.0); EOSINOPHIL 2.3 % (0-4.5); MCH 31.1 pg (25.7-33.7); MCHC 33.9 g/dl (32.0-35.9); MEAN CELL VOLUME 91.7 fl (80-96); MEAN PLT VOLUME 10.4 fl (7.5-11.1); NEUTROPHILS 78.2 % (42.8-82.8); PLATELET COUNT 190 K/MM3 (134-434); WHITE BLOOD COUNT 7.9 K/mm3 (4.0-10.0)
[2017-02-19 08:23] LABS: ALBUMIN 2.8 g/dl (3.4-5.0); ANION GAP 9 (8-16); BILIRUBIN,DIRECT 0.7 mg/dL (0.0-0.2); CALCIUM 8.4 mg/dL (8.5-10.1); CO2 30 mmol/L (21-32); CREATININE 0.8 mg/dL (0.7-1.3); GLUCOSE,RANDOM 94 mg/dL (74-106); MAGNESIUM 2.3 mg/dL (1.8-2.4); PHOSPHOROUS 3.3 mg/dL (2.5-4.9)
[2017-02-19 08:26] LABS: BILIRUBIN,TOTAL 1.2 mg/dL (0.2-1.0); TOT PROT 5.7 g/dl (6.4-8.2)
--- NOTE | 2017-02-19 09:02 | PN ---
Progress Note, Physician History of Present Illness: OOB in chair No complaints Denies chest pain/ dyspnea/ cough No c/o fever/ chills Denies abdominal pain, N/V/D LFTS elevated - Current Medication List Current Medications: Active Medications Acetaminophen (Tylenol -) 650 mg PO Q6H PRN PRN Reason: FEVER OR PAIN Last Admin: 02/18/17 02:13 Dose: 650 mg Apixaban (Eliquis -) [address] [facility] Last Admin: 02/18/17 22:16 Dose: 5 mg Aspirin (Asa -) [address] [facility] Last Admin: 02/18/17 09:53 Dose: 81 mg Atorvastatin Calcium (Lipitor -) [address] [facility] Last Admin: 02/18/17 22:16 Dose: 20 mg Azithromycin (Zithromax 500mg Ivpb (Pre-Docked)) 250 mls @ 250 mls/hr IVPB DAILY [facility] Last Admin: 02/18/17 09:55 Dose: 250 mls/hr Piperacillin Sod/Tazobactam (Sod 3.375 gm/ Dextrose) 50 mls @ 100 mls/hr IVPB Q8H-IV [facility] PRN Reason: Protocol Last Admin: 02/19/17 02:09 Dose: 100 mls/hr Isosorbide Mononitrate (Imdur -) [address] [facility] Last Admin: 02/18/17 09:54 Dose: 60 mg Metoprolol Succinate (Toprol Xl -) [address] [facility] Last Admin: 02/18/17 09:54 Dose: 50 mg Pantoprazole Sodium (Protonix -) [address] [facility] Last Admin: 02/18/17 09:54 Dose: 40 mg Tamsulosin HCl (Flomax -) 0.4 mg PO DAILY@0830 [facility] Last Admin: 02/18/17 08:26 Dose: 0.4 mg - Objective Vital Signs: Vital Signs Temperature 98.6 F 02/19/17 06:00 Pulse Rate 83 02/19/17 06:00 Respiratory Rate 20 02/19/17 06:00 Blood Pressure 139/78 02/19/17 06:00 O2 Sat by Pulse Oximetry (%) 92 L 02/18/17 21:00 Constitutional: Yes: No Distress Eyes: Yes: Conjunctiva Clear. No: Sclera Icterus Cardiovascular: Yes: Regular Rate and Rhythm, S1, S2 Respiratory: Yes: Other (+ crepitations R base) Gastrointestinal: Yes: Normal Bowel Sounds, Soft. No: Tenderness Edema: Yes Edema: LLE: 2+, RLE: 2+ Labs: CBC, BMP 02/19/17 06:30 02/19/17 06:30 INR, PTT INR 1.82 (0.82-1.09) H D 02/16/17 01:00 Assessment/Plan RLL pneumonia Possible sepsis secondary to pneumonia Jaundice- resolved Leukocytosis/ thrombocytopenia- resolved Elevated LFTs Await blood, sputum c/s Check liver US Continue zithromax/ zosyn
[2017-02-19] MEDS ORDERED: PT OWN MED DRAWER 7, Y5N ONE (09:53)
[2017-02-19] MEDS ORDERED: PIPERACILLIN/TAZOBACTAM 3.375 GM VIAL IVPB ONE ×2 (09:54→17:52)
[2017-02-19] MEDS ORDERED: DEXTROSE 5%-WATER - 50 ML IVPB ONE ×2 (09:54→17:52)
[2017-02-19] MEDS: APIXABAN 5 MG TABLET PO SCH ×2 (10:00→22:29)
[2017-02-19] MEDS: ASPIRIN 81 MG CHEWABLE TABLETS PO SCH (10:00)
[2017-02-19] MEDS: TAMSULOSIN HCL 0.4 MG CAP.ER.24H (FP) PO SCH (10:00)
[2017-02-19] MEDS: PANTOPRAZOLE 40 MG TABLET (FP) PO SCH (10:01)
[2017-02-19] MEDS: METOPROLOL SUCCINATE 50 MG TAB.SR.24H (FP) PO SCH (10:01)
[2017-02-19] MEDS: ISOSORBIDE MONONITRATE 60 MG TAB.SR.24H (FP) PO SCH (10:01)
[2017-02-19] MEDS: AZITHROMYCIN IVPB 250 ML IVPB SCH (10:03)
--- NOTE | 2017-02-19 13:20 | PN ---
Progress Note, Physician Chief Complaint: Mr Magallanes is without complaint. No cp, sob, n/v. Afebrile - Current Medication List Current Medications: Active Medications Acetaminophen (Tylenol -) 650 mg PO Q6H PRN PRN Reason: FEVER OR PAIN Last Admin: 02/18/17 02:13 Dose: 650 mg Apixaban (Eliquis -) 5 mg PO BID [facility] Last Admin: 02/19/17 10:00 Dose: 5 mg Aspirin (Asa -) 81 mg PO DAILY [facility] Last Admin: 02/19/17 10:00 Dose: 81 mg Azithromycin (Zithromax 500mg Ivpb (Pre-Docked)) 250 mls @ 250 mls/hr IVPB DAILY [facility] Last Admin: 02/19/17 10:03 Dose: 250 mls/hr Piperacillin Sod/Tazobactam (Sod 3.375 gm/ Dextrose) 50 mls @ 100 mls/hr IVPB Q8H-IV [facility] PRN Reason: Protocol Last Admin: 02/19/17 10:01 Dose: 100 mls/hr Isosorbide Mononitrate (Imdur -) 60 mg PO DAILY [facility] Last Admin: 02/19/17 10:01 Dose: 60 mg Metoprolol Succinate (Toprol Xl -) 50 mg PO DAILY [facility] Last Admin: 02/19/17 10:01 Dose: 50 mg Pantoprazole Sodium (Protonix -) 40 mg PO DAILY [facility] Last Admin: 02/19/17 10:01 Dose: 40 mg Tamsulosin HCl (Flomax -) 0.4 mg PO DAILY@0830 [facility] Last Admin: 02/19/17 10:00 Dose: 0.4 mg - Objective Vital Signs: Vital Signs Temperature 98.4 F 02/19/17 09:20 Pulse Rate 88 02/19/17 11:58 Respiratory Rate 18 02/19/17 09:20 Blood Pressure 150/98 02/19/17 09:20 O2 Sat by Pulse Oximetry (%) 93 L 02/19/17 11:58 Constitutional: Yes: Well Nourished, No Distress, Calm Cardiovascular: Yes: Regular Rate and Rhythm. No: Gallop, Murmur, Rub Respiratory: Yes: Regular, Rhonchi. No: CTA Bilaterally, Rales, Wheezes Gastrointestinal: Yes: Normal Bowel Sounds, Soft. No: Distention, Tenderness Extremities: Yes: WNL Edema: No Labs: CBC, BMP 02/19/17 06:30 02/19/17 06:30 INR, PTT INR 1.82 (0.82-1.09) H D 02/16/17 01:00 Problem List - Problems (1) Sepsis Code(s): A41.9 - SEPSIS, UNSPECIFIED ORGANISM Qualifiers: Sepsis type: sepsis due to unspecified organism Qualified Code(s): A41.9 - Sepsis, unspecified organism (2) Atrial fibrillation Code(s): I48.91 - UNSPECIFIED ATRIAL FIBRILLATION Qualifiers: Atrial fibrillation type: chronic Qualified Code(s): I48.2 - Chronic atrial fibrillation (3) HTN (hypertension) Code(s): I10 - ESSENTIAL (PRIMARY) HYPERTENSION (4) CAD (coronary artery disease) Code(s): I25.10 - ATHSCL HEART DISEASE OF [place] CORONARY ARTERY W/O ANG PCTRS (5) BPH (benign prostatic hyperplasia) Code(s): N40.0 - BENIGN PROSTATIC HYPERPLASIA WITHOUT LOWER URINRY TRACT SYMP Assessment/Plan (1) Sepsis secondary to pneumonia Assessment/Plan: -reviewed CT scan -positive for pneumonia -continue zosyn and zithromax -urine negative for legionella -afebrile 24 hours currently Code(s): A41.9 - SEPSIS, UNSPECIFIED ORGANISM Qualifiers: Sepsis type: sepsis due to unspecified organism Qualified Code(s): A41.9 - Sepsis, unspecified organism (2) Atrial fibrillation Assessment/Plan: -rate controlled -continue eliquis and toprol xl Code(s): I48.91 - UNSPECIFIED ATRIAL FIBRILLATION Qualifiers: Atrial fibrillation type: chronic Qualified Code(s): I48.2 - Chronic atrial fibrillation (3) HTN (hypertension) Assessment/Plan: -improved today -continue current regimen -monitor Code(s): I10 - ESSENTIAL (PRIMARY) HYPERTENSION (4) CAD (coronary artery disease) Assessment/Plan: -quiescent -continue home regimen Code(s): I25.10 - ATHSCL HEART DISEASE OF [place] CORONARY ARTERY W/O ANG PCTRS (5) BPH (benign prostatic hyperplasia) Assessment/Plan: -continue flomax Code(s): N40.0 - BENIGN PROSTATIC HYPERPLASIA WITHOUT LOWER URINRY TRACT SYMP (6) Elevated LFTs -improving -abdominal ultrasound reviewed -? secondary to statin -will stop
[2017-02-20] MEDS ORDERED: DEXTROSE 5%-WATER - 50 ML IVPB ONE ×3 (02:18→18:31)
[2017-02-20] MEDS ORDERED: PIPERACILLIN/TAZOBACTAM 3.375 GM VIAL IVPB ONE ×3 (02:18→18:31)
[2017-02-20] MEDS: PIPERACILLIN/TAZOB 3.375 GM 3.375 GM in DEXTROSE 5%-WATER - 50 ML IVPB SCH ×3 (02:39→18:35)
[2017-02-20 08:35] LABS: ALK PHOS 124 U/L (45-117); ANION GAP 9 (8-16); BILIRUBIN,DIRECT 0.7 mg/dL (0.0-0.2); BILIRUBIN,TOTAL 1.3 mg/dL (0.2-1.0); CALCIUM 8.8 mg/dL (8.5-10.1); CO2 30 mmol/L (21-32); CREATININE 0.8 mg/dL (0.7-1.3); GLUCOSE,RANDOM 93 mg/dL (74-106); MAGNESIUM 2.3 mg/dL (1.8-2.4); PHOSPHOROUS 3.3 mg/dL (2.5-4.9); SGOT/AST 109 U/L (15-37); SGPT/ALT 129 U/L (12-78)
[2017-02-20 08:48] LABS: BASOPHIL 0.4 % (0-2.0); MCH 30.9 pg (25.7-33.7); MEAN CELL VOLUME 90.9 fl (80-96); MEAN PLT VOLUME 9.5 fl (7.5-11.1); NEUTROPHILS 75.6 % (42.8-82.8); PLATELET COUNT 209 K/MM3 (134-434); RDW 13.7 % (11.9-15.9); WHITE BLOOD COUNT 8.4 K/mm3 (4.0-10.0)
[2017-02-20] MEDS ORDERED: PT OWN MED DRAWER 7, Y5N ONE (10:05)
[2017-02-20] MEDS: METOPROLOL SUCCINATE 50 MG TAB.SR.24H (FP) PO SCH (10:08)
[2017-02-20] MEDS: ASPIRIN 81 MG CHEWABLE TABLETS PO SCH (10:08)
[2017-02-20] MEDS: APIXABAN 5 MG TABLET PO SCH ×2 (10:08→21:37)
[2017-02-20] MEDS: ISOSORBIDE MONONITRATE 60 MG TAB.SR.24H (FP) PO SCH (10:08)
[2017-02-20] MEDS: TAMSULOSIN HCL 0.4 MG CAP.ER.24H (FP) PO SCH (10:08)
[2017-02-20] MEDS: PANTOPRAZOLE 40 MG TABLET (FP) PO SCH (10:08)
[2017-02-20] MEDS: AZITHROMYCIN IVPB 250 ML IVPB SCH (10:58)
--- NOTE | 2017-02-20 13:39 | PN ---
Progress Note, Physician History of Present Illness: OOB in chair No complaints Denies chest pain/ dyspnea Occasional cough, scant sputum Temps, WBC down - Current Medication List Current Medications: Active Medications Acetaminophen (Tylenol -) 650 mg PO Q6H PRN PRN Reason: FEVER OR PAIN Last Admin: 02/18/17 02:13 Dose: 650 mg Apixaban (Eliquis -) 5 mg PO BID [facility] Last Admin: 02/20/17 10:08 Dose: 5 mg Aspirin (Asa -) 81 mg PO DAILY [facility] Last Admin: 02/20/17 10:08 Dose: 81 mg Piperacillin Sod/Tazobactam (Sod 3.375 gm/ Dextrose) 50 mls @ 100 mls/hr IVPB Q8H-IV [facility] PRN Reason: Protocol Last Admin: 02/20/17 10:07 Dose: 100 mls/hr Isosorbide Mononitrate (Imdur -) 60 mg PO DAILY [facility] Last Admin: 02/20/17 10:08 Dose: 60 mg Metoprolol Succinate (Toprol Xl -) 50 mg PO DAILY [facility] Last Admin: 02/20/17 10:08 Dose: 50 mg Pantoprazole Sodium (Protonix -) 40 mg PO DAILY [facility] Last Admin: 02/20/17 10:08 Dose: 40 mg Tamsulosin HCl (Flomax -) 0.4 mg PO DAILY@0830 [facility] Last Admin: 02/20/17 10:08 Dose: 0.4 mg - Objective Vital Signs: Vital Signs Temperature 98.6 F 02/20/17 06:52 Pulse Rate 88 02/20/17 06:52 Respiratory Rate 20 02/20/17 06:52 Blood Pressure 150/90 02/20/17 06:52 O2 Sat by Pulse Oximetry (%) 96 02/19/17 21:00 Constitutional: Yes: No Distress Eyes: Yes: Conjunctiva Clear Cardiovascular: Yes: Regular Rate and Rhythm, S1, S2 Respiratory: Yes: Other (few crepitations R base) Gastrointestinal: Yes: Normal Bowel Sounds, Soft. No: Tenderness Edema: Yes Labs: CBC, BMP 02/20/17 06:45 02/20/17 06:45 INR, PTT INR 1.82 (0.82-1.09) H D 02/16/17 01:00 Assessment/Plan RLL pneumonia improved Possible sepsis secondary to pneumonia Jaundice- resolved Leukocytosis/ thrombocytopenia- resolved Elevated LFTs sputum c/s normal lance D/C zithromax Continue zosyn additional 24-48hr
--- NOTE | 2017-02-20 16:11 | PN ---
Progress Note, Physician Chief Complaint: Mr Magallanes is without complaint. No cp, sob, n/v. - Current Medication List Current Medications: Active Medications Acetaminophen (Tylenol -) 650 mg PO Q6H PRN PRN Reason: FEVER OR PAIN Last Admin: 02/18/17 02:13 Dose: 650 mg Apixaban (Eliquis -) 5 mg PO BID [facility] Last Admin: 02/20/17 10:08 Dose: 5 mg Aspirin (Asa -) 81 mg PO DAILY [facility] Last Admin: 02/20/17 10:08 Dose: 81 mg Piperacillin Sod/Tazobactam (Sod 3.375 gm/ Dextrose) 50 mls @ 100 mls/hr IVPB Q8H-IV [facility] PRN Reason: Protocol Last Admin: 02/20/17 10:07 Dose: 100 mls/hr Isosorbide Mononitrate (Imdur -) 60 mg PO DAILY [facility] Last Admin: 02/20/17 10:08 Dose: 60 mg Metoprolol Succinate (Toprol Xl -) 50 mg PO DAILY [facility] Last Admin: 02/20/17 10:08 Dose: 50 mg Pantoprazole Sodium (Protonix -) 40 mg PO DAILY [facility] Last Admin: 02/20/17 10:08 Dose: 40 mg Tamsulosin HCl (Flomax -) 0.4 mg PO DAILY@0830 [facility] Last Admin: 02/20/17 10:08 Dose: 0.4 mg - Objective Vital Signs: Vital Signs Temperature 98.6 F 02/20/17 06:52 Pulse Rate 88 02/20/17 06:52 Respiratory Rate 20 02/20/17 06:52 Blood Pressure 150/90 02/20/17 06:52 O2 Sat by Pulse Oximetry (%) 96 02/19/17 21:00 Constitutional: Yes: Well Nourished, No Distress, Calm Cardiovascular: Yes: Pulse Irregular. No: Gallop, Murmur, Rub Respiratory: Yes: Regular, CTA Bilaterally. No: Rales, Rhonchi, Wheezes Gastrointestinal: Yes: Normal Bowel Sounds, Soft. No: Distention, Tenderness Extremities: Yes: WNL Edema: No Labs: CBC, BMP 02/20/17 06:45 02/20/17 06:45 INR, PTT INR 1.82 (0.82-1.09) H D 02/16/17 01:00 Problem List - Problems (1) Sepsis Code(s): A41.9 - SEPSIS, UNSPECIFIED ORGANISM Qualifiers: Sepsis type: sepsis due to unspecified organism Qualified Code(s): A41.9 - Sepsis, unspecified organism (2) Atrial fibrillation Code(s): I48.91 - UNSPECIFIED ATRIAL FIBRILLATION Qualifiers: Atrial fibrillation type: chronic Qualified Code(s): I48.2 - Chronic atrial fibrillation (3) HTN (hypertension) Code(s): I10 - ESSENTIAL (PRIMARY) HYPERTENSION (4) CAD (coronary artery disease) Code(s): I25.10 - ATHSCL HEART DISEASE OF [place] CORONARY ARTERY W/O ANG PCTRS (5) BPH (benign prostatic hyperplasia) Code(s): N40.0 - BENIGN PROSTATIC HYPERPLASIA WITHOUT LOWER URINRY TRACT SYMP Assessment/Plan (1) Sepsis secondary to pneumonia Assessment/Plan: -reviewed CT scan -positive for pneumonia -zithromax stopped -continue zosyn per ID -afebrile 48 hours -continue zosyn 24-48, ID to decide Code(s): A41.9 - SEPSIS, UNSPECIFIED ORGANISM Qualifiers: Sepsis type: sepsis due to unspecified organism Qualified Code(s): A41.9 - Sepsis, unspecified organism (2) Atrial fibrillation Assessment/Plan: -rate controlled -continue eliquis and toprol xl Code(s): I48.91 - UNSPECIFIED ATRIAL FIBRILLATION Qualifiers: Atrial fibrillation type: chronic Qualified Code(s): I48.2 - Chronic atrial fibrillation (3) HTN (hypertension) Assessment/Plan: -controlled Code(s): I10 - ESSENTIAL (PRIMARY) HYPERTENSION (4) CAD (coronary artery disease) Assessment/Plan: -quiescent -continue home regimen Code(s): I25.10 - ATHSCL HEART DISEASE OF [place] CORONARY ARTERY W/O ANG PCTRS (5) BPH (benign prostatic hyperplasia) Assessment/Plan: -continue flomax Code(s): N40.0 - BENIGN PROSTATIC HYPERPLASIA WITHOUT LOWER URINRY TRACT SYMP (6) Elevated LFTs -suspect secondary to statin -stable -statin stopped -outpatient follow up
[2017-02-21] MEDS ORDERED: DEXTROSE 5%-WATER - 50 ML IVPB ONE ×3 (01:22→17:23)
[2017-02-21] MEDS ORDERED: PIPERACILLIN/TAZOBACTAM 3.375 GM VIAL IVPB ONE ×3 (01:22→17:23)
[2017-02-21] MEDS: PIPERACILLIN/TAZOB 3.375 GM 3.375 GM in DEXTROSE 5%-WATER - 50 ML IVPB SCH ×3 (01:31→17:40)
[2017-02-21 08:03] LABS: BASOPHIL 0.4 % (0-2.0); EOSINOPHIL 3.2 % (0-4.5); MCH 31.1 pg (25.7-33.7); MCHC 34.3 g/dl (32.0-35.9); MEAN CELL VOLUME 90.7 fl (80-96); MEAN PLT VOLUME 9.6 fl (7.5-11.1); NEUTROPHILS 78.4 % (42.8-82.8); PLATELET COUNT 243 K/MM3 (134-434); RDW 14.1 % (11.9-15.9); WHITE BLOOD COUNT 10.1 K/mm3 (4.0-10.0)
[2017-02-21 08:28] LABS: ALBUMIN 3.1 g/dl (3.4-5.0); ALK PHOS 116 U/L (45-117); ANION GAP 7 (8-16); BILIRUBIN,TOTAL 1.2 mg/dL (0.2-1.0); CALCIUM 8.6 mg/dL (8.5-10.1); CO2 31 mmol/L (21-32); CREATININE 0.9 mg/dL (0.7-1.3); GLUCOSE,RANDOM 93 mg/dL (74-106); MAGNESIUM 2.3 mg/dL (1.8-2.4); PHOSPHOROUS 2.9 mg/dL (2.5-4.9); SGOT/AST 67 U/L (15-37); SGPT/ALT 106 U/L (12-78)
[2017-02-21] MEDS ORDERED: FUROSEMIDE 40 MG/4 ML INJECTABLE VIAL IVPUSH ONE (09:42)
--- NOTE | 2017-02-21 09:52 | PN ---
Progress Note, Physician Chief Complaint: Feels better no SOB. History of Present Illness: Patient with RLL infiltrate receiving IV antibiotics and feeling better overall. Has TAA and elevated liver chenistries related to statin and they are slowly improving. However I noticed today that he has 3=4+ pedal edema amd suggestion on CT scan of ? fluid overload. Will Rx with lasix 40,g IV and F/U. - Current Medication List Current Medications: Active Medications Acetaminophen (Tylenol -) 650 mg PO Q6H PRN PRN Reason: FEVER OR PAIN Last Admin: 02/18/17 02:13 Dose: 650 mg Apixaban (Eliquis -) 5 mg PO BID [facility] Last Admin: 02/20/17 21:37 Dose: 5 mg Aspirin (Asa -) 81 mg PO DAILY [facility] Last Admin: 02/20/17 10:08 Dose: 81 mg Furosemide (Lasix Injection -) 40 mg IVPUSH ONCE ONE Stop: 02/21/17 09:43 Piperacillin Sod/Tazobactam (Sod 3.375 gm/ Dextrose) 50 mls @ 100 mls/hr IVPB Q8H-IV [facility] PRN Reason: Protocol Last Admin: 02/21/17 01:31 Dose: 100 mls/hr Isosorbide Mononitrate (Imdur -) 60 mg PO DAILY [facility] Last Admin: 02/20/17 10:08 Dose: 60 mg Metoprolol Succinate (Toprol Xl -) 50 mg PO DAILY [facility] Last Admin: 02/20/17 10:08 Dose: 50 mg Pantoprazole Sodium (Protonix -) 40 mg PO DAILY [facility] Last Admin: 02/20/17 10:08 Dose: 40 mg Tamsulosin HCl (Flomax -) 0.4 mg PO DAILY@0830 [facility] Last Admin: 02/20/17 10:08 Dose: 0.4 mg - Objective Vital Signs: Vital Signs Temperature 98.4 F 02/21/17 06:00 Pulse Rate 85 02/21/17 06:00 Respiratory Rate 20 02/21/17 06:00 Blood Pressure 147/92 02/21/17 06:00 O2 Sat by Pulse Oximetry (%) 98 02/20/17 09:00 Constitutional: Yes: Calm Eyes: Yes: Conjunctiva Clear Cardiovascular: Yes: Pulse Irregular Respiratory: Yes: Diminished, Rhonchi (few rhonchi at bases) Gastrointestinal: Yes: Soft Genitourinary: No: Smith Present Edema: LLE: 3+, RLE: 3+ Neurological: Yes: Alert, Oriented Labs: CBC, BMP 02/21/17 06:00 02/21/17 06:00 INR, PTT INR 1.82 (0.82-1.09) H D 02/16/17 01:00 Problem List - Problems (1) Atrial fibrillation Assessment/Plan: On anticoagulation. Code(s): I48.91 - UNSPECIFIED ATRIAL FIBRILLATION Qualifiers: Atrial fibrillation type: chronic Qualified Code(s): I48.2 - Chronic atrial fibrillation (2) Community acquired pneumonia Assessment/Plan: On IV antibiotic as per VIVIAN CANTU. Code(s): J18.9 - PNEUMONIA, UNSPECIFIED ORGANISM (3) Pedal edema Assessment/Plan: ?mild CHF Will give trial of IV Lasix ADELIA's Code(s): R60.0 - LOCALIZED EDEMA
[2017-02-21] MEDS: ISOSORBIDE MONONITRATE 60 MG TAB.SR.24H (FP) PO SCH (10:37)
[2017-02-21] MEDS: TAMSULOSIN HCL 0.4 MG CAP.ER.24H (FP) PO SCH (10:37)
[2017-02-21] MEDS: ASPIRIN 81 MG CHEWABLE TABLETS PO SCH (10:38)
[2017-02-21] MEDS: METOPROLOL SUCCINATE 50 MG TAB.SR.24H (FP) PO SCH (10:38)
[2017-02-21] MEDS: APIXABAN 5 MG TABLET PO SCH ×2 (10:38→21:48)
[2017-02-21] MEDS: PANTOPRAZOLE 40 MG TABLET (FP) PO SCH (10:38)
--- NOTE | 2017-02-21 11:00 | PN ---
Progress Note, Physician History of Present Illness: OOB in chair No c/o chest pain/ dyspnea/ cough Temps down- afebrile WBC 10 LFTs improved - Current Medication List Current Medications: Active Medications Acetaminophen (Tylenol -) 650 mg PO Q6H PRN PRN Reason: FEVER OR PAIN Last Admin: 02/18/17 02:13 Dose: 650 mg Apixaban (Eliquis -) 5 mg PO BID [facility] Last Admin: 02/21/17 10:38 Dose: 5 mg Aspirin (Asa -) 81 mg PO DAILY [facility] Last Admin: 02/21/17 10:38 Dose: 81 mg Piperacillin Sod/Tazobactam (Sod 3.375 gm/ Dextrose) 50 mls @ 100 mls/hr IVPB Q8H-IV [facility] PRN Reason: Protocol Last Admin: 02/21/17 10:37 Dose: 100 mls/hr Isosorbide Mononitrate (Imdur -) 60 mg PO DAILY [facility] Last Admin: 02/21/17 10:37 Dose: 60 mg Metoprolol Succinate (Toprol Xl -) 50 mg PO DAILY [facility] Last Admin: 02/21/17 10:38 Dose: 50 mg Pantoprazole Sodium (Protonix -) 40 mg PO DAILY [facility] Last Admin: 02/21/17 10:38 Dose: 40 mg Tamsulosin HCl (Flomax -) 0.4 mg PO DAILY@0830 [facility] Last Admin: 02/21/17 10:37 Dose: 0.4 mg - Objective Vital Signs: Vital Signs Temperature 98.4 F 02/21/17 06:00 Pulse Rate 85 02/21/17 06:00 Respiratory Rate 20 02/21/17 06:00 Blood Pressure 147/92 02/21/17 06:00 O2 Sat by Pulse Oximetry (%) 98 02/20/17 09:00 Constitutional: Yes: No Distress Eyes: Yes: Conjunctiva Clear Cardiovascular: Yes: Regular Rate and Rhythm, S1, S2 Respiratory: Yes: Other (few crepitations R base) Gastrointestinal: Yes: Normal Bowel Sounds, Soft. No: Tenderness Edema: Yes Edema: LLE: 2+, RLE: 2+ Labs: CBC, BMP 02/21/17 06:00 02/21/17 06:00 INR, PTT INR 1.82 (0.82-1.09) H D 02/16/17 01:00 Assessment/Plan RLL pneumonia improved Possible sepsis secondary to pneumonia Jaundice- resolved Leukocytosis/ thrombocytopenia- resolved Elevated LFTs - improved sputum c/s normal lance Continue zosyn additional 24 hr
[2017-02-22] MEDS ORDERED: DEXTROSE 5%-WATER - 50 ML IVPB ONE ×3 (01:11→17:42)
[2017-02-22] MEDS ORDERED: PIPERACILLIN/TAZOBACTAM 3.375 GM VIAL IVPB ONE ×3 (01:11→17:41)
[2017-02-22] MEDS: PIPERACILLIN/TAZOB 3.375 GM 3.375 GM in DEXTROSE 5%-WATER - 50 ML IVPB SCH ×3 (01:33→18:46)
[2017-02-22 07:56] LABS: MCHC 33.9 g/dl (32.0-35.9); MEAN CELL VOLUME 91.3 fl (80-96); MEAN PLT VOLUME 9.3 fl (7.5-11.1); PLATELET COUNT 260 K/MM3 (134-434); RDW 13.7 % (11.9-15.9); WHITE BLOOD COUNT 12.3 K/mm3 (4.0-10.0)
[2017-02-22 08:50] LABS: ALBUMIN 2.9 g/dl (3.4-5.0); ANION GAP 10 (8-16); CALCIUM 8.3 mg/dL (8.5-10.1); CO2 32 mmol/L (21-32); GLUCOSE,RANDOM 84 mg/dL (74-106)
[2017-02-22 08:52] LABS: ALK PHOS 105 U/L (45-117); BILIRUBIN,TOTAL 1.4 mg/dL (0.2-1.0); SGOT/AST 46 U/L (15-37); SGPT/ALT 82 U/L (12-78); TOT PROT 5.6 g/dl (6.4-8.2)
[2017-02-22] MEDS: TAMSULOSIN HCL 0.4 MG CAP.ER.24H (FP) PO SCH (09:37)
[2017-02-22] MEDS: ASPIRIN 81 MG CHEWABLE TABLETS PO SCH (09:37)
[2017-02-22] MEDS: METOPROLOL SUCCINATE 50 MG TAB.SR.24H (FP) PO SCH (09:37)
[2017-02-22] MEDS: APIXABAN 5 MG TABLET PO SCH ×2 (09:37→21:34)
[2017-02-22] MEDS: PANTOPRAZOLE 40 MG TABLET (FP) PO SCH (09:37)
[2017-02-22] MEDS: ISOSORBIDE MONONITRATE 60 MG TAB.SR.24H (FP) PO SCH (09:37)
[2017-02-22 10:24] LABS: METAMYELOCYTE 1 % (0-2); MICROCYTOSIS 1+; PLATELET ESTIMATE ADEQUATE (NORMAL); POLYCHROMASIA 1+
--- NOTE | 2017-02-22 12:03 | PN ---
Progress Note, Physician Chief Complaint: Had diarrhea this AM and a little tired. History of Present Illness: Patient treated for Pneumonia with IV antibiotics and yet was noted to have a rising white cell count over 12,300 today. He also had a bout of diarrhea this AM but says he tolerated breakfast. No real cough but feeling somewhat fatigued and worried about being home. ? will need repeat Chest CT. Mild liver enzyme elevations and he was noted to have 3+ pedal edema yesterday but responded well to 1 dose ovf IV Lasix. - Current Medication List Current Medications: Active Medications Acetaminophen (Tylenol -) 650 mg PO Q6H PRN PRN Reason: FEVER OR PAIN Last Admin: 02/18/17 02:13 Dose: 650 mg Apixaban (Eliquis -) 5 mg PO BID [facility] Last Admin: 02/22/17 09:37 Dose: 5 mg Aspirin (Asa -) 81 mg PO DAILY [facility] Last Admin: 02/22/17 09:37 Dose: 81 mg Piperacillin Sod/Tazobactam (Sod 3.375 gm/ Dextrose) 50 mls @ 100 mls/hr IVPB Q8H-IV SIOBHAN PRN Reason: Protocol Last Admin: 02/22/17 09:37 Dose: 100 mls/hr Isosorbide Mononitrate (Imdur -) 60 mg PO DAILY [facility] Last Admin: 02/22/17 09:37 Dose: 60 mg Metoprolol Succinate (Toprol Xl -) 50 mg PO DAILY [facility] Last Admin: 02/22/17 09:37 Dose: 50 mg Pantoprazole Sodium (Protonix -) 40 mg PO DAILY [facility] Last Admin: 02/22/17 09:37 Dose: 40 mg Tamsulosin HCl (Flomax -) 0.4 mg PO DAILY@0830 [facility] Last Admin: 02/22/17 09:37 Dose: 0.4 mg - Objective Vital Signs: Vital Signs Temperature 98 F 02/22/17 07:14 Pulse Rate 73 02/22/17 07:14 Respiratory Rate 18 02/22/17 07:14 Blood Pressure 158/88 02/22/17 07:14 O2 Sat by Pulse Oximetry (%) 95 02/21/17 21:00 Constitutional: Yes: Calm. No: Pallor Cardiovascular: Yes: Pulse Irregular, Other (Pacemaker left upper chest wall.) Respiratory: Yes: Diminished. No: Rales, Wheezes Gastrointestinal: Yes: Soft, Hyperactive Bowel Sounds. No: Tenderness Genitourinary: No: Smith Present Edema: LLE: 1+, RLE: 1+ Neurological: Yes: Alert, Oriented Labs: CBC, BMP 02/22/17 06:00 02/22/17 06:00 INR, PTT INR 1.82 (0.82-1.09) H D 02/16/17 01:00 Problem List - Problems (1) Community acquired pneumonia Assessment/Plan: On IV antibiotics but WBC higher today 12,300. No cough but ? repeat Chest CT needed. Code(s): J18.9 - PNEUMONIA, UNSPECIFIED ORGANISM (2) Atrial fibrillation Assessment/Plan: On anticoagulation. Code(s): I48.91 - UNSPECIFIED ATRIAL FIBRILLATION Qualifiers: Atrial fibrillation type: chronic Qualified Code(s): I48.2 - Chronic atrial fibrillation (3) Pedal edema Assessment/Plan: Better after IV Lasix X1. Code(s): R60.0 - LOCALIZED EDEMA (4) Elevated liver enzymes Assessment/Plan: ? cause;Liver sonogram: ? coarsened texture Will F/U lab. Code(s): R74.8 - ABNORMAL LEVELS OF OTHER SERUM ENZYMES
--- NOTE | 2017-02-22 12:21 | PN ---
Progress Note, Physician History of Present Illness: OOB in chair No c/o cough/sputum No c/o chest pain/ dyspnea No fever/ chills - Current Medication List Current Medications: Active Medications Acetaminophen (Tylenol -) 650 mg PO Q6H PRN PRN Reason: FEVER OR PAIN Last Admin: 02/18/17 02:13 Dose: 650 mg Apixaban (Eliquis -) 5 mg PO BID [facility] Last Admin: 02/22/17 09:37 Dose: 5 mg Aspirin (Asa -) 81 mg PO DAILY [facility] Last Admin: 02/22/17 09:37 Dose: 81 mg Piperacillin Sod/Tazobactam (Sod 3.375 gm/ Dextrose) 50 mls @ 100 mls/hr IVPB Q8H-IV SIOBHAN PRN Reason: Protocol Last Admin: 02/22/17 09:37 Dose: 100 mls/hr Isosorbide Mononitrate (Imdur -) 60 mg PO DAILY [facility] Last Admin: 02/22/17 09:37 Dose: 60 mg Metoprolol Succinate (Toprol Xl -) 50 mg PO DAILY [facility] Last Admin: 02/22/17 09:37 Dose: 50 mg Pantoprazole Sodium (Protonix -) 40 mg PO DAILY [facility] Last Admin: 02/22/17 09:37 Dose: 40 mg Tamsulosin HCl (Flomax -) 0.4 mg PO DAILY@0830 [facility] Last Admin: 02/22/17 09:37 Dose: 0.4 mg - Objective Vital Signs: Vital Signs Temperature 98 F 02/22/17 07:14 Pulse Rate 73 02/22/17 07:14 Respiratory Rate 18 02/22/17 07:14 Blood Pressure 158/88 02/22/17 07:14 O2 Sat by Pulse Oximetry (%) 95 02/21/17 21:00 Constitutional: Yes: No Distress Eyes: Yes: Conjunctiva Clear Cardiovascular: Yes: Regular Rate and Rhythm, S1, S2 Respiratory: Yes: Other (+ crepitations R base) Gastrointestinal: Yes: Normal Bowel Sounds, Soft. No: Tenderness Edema: Yes Labs: CBC, BMP 02/22/17 06:00 02/22/17 06:00 INR, PTT INR 1.82 (0.82-1.09) H D 02/16/17 01:00 Assessment/Plan RLL pneumonia improved Possible sepsis secondary to pneumonia Jaundice- resolved Leukocytosis/ thrombocytopenia- resolved Elevated LFTs - improved sputum c/s normal lance Substitute po Augmentin next 24h
[2017-02-23] MEDS ORDERED: PIPERACILLIN/TAZOBACTAM 3.375 GM VIAL IVPB ONE ×2 (01:19→09:04)
[2017-02-23] MEDS ORDERED: DEXTROSE 5%-WATER - 50 ML IVPB ONE ×2 (01:19→09:04)
[2017-02-23] MEDS: PIPERACILLIN/TAZOB 3.375 GM 3.375 GM in DEXTROSE 5%-WATER - 50 ML IVPB SCH ×2 (01:46→09:49)
[2017-02-23 08:16] LABS: MCH 30.7 pg (25.7-33.7); MCHC 33.9 g/dl (32.0-35.9); MEAN CELL VOLUME 90.7 fl (80-96); PLATELET COUNT 289 K/MM3 (134-434); RDW 13.9 % (11.9-15.9); WHITE BLOOD COUNT 12.8 K/mm3 (4.0-10.0)
[2017-02-23 08:37] LABS: ALBUMIN 3.1 g/dl (3.4-5.0); ALK PHOS 104 U/L (45-117); ANION GAP 7 (8-16); BILIRUBIN,TOTAL 1.3 mg/dL (0.2-1.0); CALCIUM 8.6 mg/dL (8.5-10.1); CO2 31 mmol/L (21-32); GLUCOSE,RANDOM 82 mg/dL (74-106); SGOT/AST 43 U/L (15-37); SGPT/ALT 72 U/L (12-78); TOT PROT 5.9 g/dl (6.4-8.2)
[2017-02-23] MEDS: APIXABAN 5 MG TABLET PO SCH (09:49)
[2017-02-23] MEDS: ISOSORBIDE MONONITRATE 60 MG TAB.SR.24H (FP) PO SCH (09:49)
[2017-02-23] MEDS: PANTOPRAZOLE 40 MG TABLET (FP) PO SCH (09:49)
[2017-02-23] MEDS: TAMSULOSIN HCL 0.4 MG CAP.ER.24H (FP) PO SCH (09:49)
[2017-02-23] MEDS: ASPIRIN 81 MG CHEWABLE TABLETS PO SCH (09:49)
[2017-02-23] MEDS: METOPROLOL SUCCINATE 50 MG TAB.SR.24H (FP) PO SCH (09:49)
[2017-02-23 10:37] LABS: ERYTHROCYTE SEDIMENTATION RATE 48 mm/hr (0-20)
[2017-02-23 12:16] LABS: PLATELET ESTIMATE ADEQUATE (NORMAL)
[2017-02-23 14:04] VITALS: BP 104/60; PULSE 83; TEMP 98
--- NOTE | 2017-02-23 14:07 | PN ---
Progress Note, Physician History of Present Illness: OOB in chair No c/o chest pain/ dyspnea/ cough No fever/ chills - Current Medication List Current Medications: Active Medications Acetaminophen (Tylenol -) 650 mg PO Q6H PRN PRN Reason: FEVER OR PAIN Last Admin: 02/18/17 02:13 Dose: 650 mg Apixaban (Eliquis -) 5 mg PO BID [facility] Last Admin: 02/23/17 09:49 Dose: 5 mg Aspirin (Asa -) 81 mg PO DAILY [facility] Last Admin: 02/23/17 09:49 Dose: 81 mg Piperacillin Sod/Tazobactam (Sod 3.375 gm/ Dextrose) 50 mls @ 100 mls/hr IVPB Q8H-IV SIOBHAN PRN Reason: Protocol Last Admin: 02/23/17 09:49 Dose: 100 mls/hr Isosorbide Mononitrate (Imdur -) 60 mg PO DAILY [facility] Last Admin: 02/23/17 09:49 Dose: 60 mg Metoprolol Succinate (Toprol Xl -) 50 mg PO DAILY [facility] Last Admin: 02/23/17 09:49 Dose: 50 mg Pantoprazole Sodium (Protonix -) 40 mg PO DAILY [facility] Last Admin: 02/23/17 09:49 Dose: 40 mg Tamsulosin HCl (Flomax -) 0.4 mg PO DAILY@0830 [facility] Last Admin: 02/23/17 09:49 Dose: 0.4 mg - Objective Vital Signs: Vital Signs Temperature 98.0 F 02/23/17 14:02 Pulse Rate 83 02/23/17 14:02 Respiratory Rate 20 02/23/17 14:02 Blood Pressure 104/60 02/23/17 14:02 O2 Sat by Pulse Oximetry (%) 97 02/23/17 09:49 Constitutional: Yes: No Distress Eyes: Yes: Conjunctiva Clear Cardiovascular: Yes: Regular Rate and Rhythm, S1, S2 Respiratory: Yes: CTA Bilaterally Gastrointestinal: Yes: Normal Bowel Sounds, Soft. No: Tenderness Edema: Yes Integumentary: Yes: Other (faint rash L neck, buttocks) Labs: CBC, BMP 02/23/17 06:00 02/23/17 06:00 INR, PTT INR 1.82 (0.82-1.09) H D 02/16/17 01:00 Assessment/Plan RLL pneumonia improved Possible sepsis secondary to pneumonia Jaundice- resolved Leukocytosis/ thrombocytopenia- resolved Elevated LFTs - improved Substitute po Augmentin 875 mg po bid x 7d
--- NOTE | 2017-02-23 15:15 | PN ---
Progress Note, Physician - Current Medication List Current Medications: Active Medications Acetaminophen (Tylenol -) 650 mg PO Q6H PRN PRN Reason: FEVER OR PAIN Last Admin: 02/18/17 02:13 Dose: 650 mg Amoxicillin/Clavulanate Potassium (Augmentin - 875mg Tablet) 1 tab PO BID@0800, 1730 [facility] Apixaban (Eliquis -) 5 mg PO BID [facility] Last Admin: 02/23/17 09:49 Dose: 5 mg Aspirin (Asa -) 81 mg PO DAILY [facility] Last Admin: 02/23/17 09:49 Dose: 81 mg Isosorbide Mononitrate (Imdur -) 60 mg PO DAILY [facility] Last Admin: 02/23/17 09:49 Dose: 60 mg Metoprolol Succinate (Toprol Xl -) 50 mg PO DAILY [facility] Last Admin: 02/23/17 09:49 Dose: 50 mg Pantoprazole Sodium (Protonix -) 40 mg PO DAILY [facility] Last Admin: 02/23/17 09:49 Dose: 40 mg Tamsulosin HCl (Flomax -) 0.4 mg PO DAILY@0830 [facility] Last Admin: 02/23/17 09:49 Dose: 0.4 mg - Objective Vital Signs: Vital Signs Temperature 98.0 F 02/23/17 14:02 Pulse Rate 83 02/23/17 14:02 Respiratory Rate 20 02/23/17 14:02 Blood Pressure 104/60 02/23/17 14:02 O2 Sat by Pulse Oximetry (%) 97 02/23/17 09:49 Labs: CBC, BMP 02/23/17 06:00 02/23/17 06:00 INR, PTT INR 1.82 (0.82-1.09) H D 02/16/17 01:00 Problem List - Problems (1) Sepsis Code(s): A41.9 - SEPSIS, UNSPECIFIED ORGANISM Qualifiers: Sepsis type: sepsis due to unspecified organism Qualified Code(s): A41.9 - Sepsis, unspecified organism (2) Atrial fibrillation Code(s): I48.91 - UNSPECIFIED ATRIAL FIBRILLATION Qualifiers: Atrial fibrillation type: chronic Qualified Code(s): I48.2 - Chronic atrial fibrillation (3) HTN (hypertension) Code(s): I10 - ESSENTIAL (PRIMARY) HYPERTENSION (4) CAD (coronary artery disease) Code(s): I25.10 - ATHSCL HEART DISEASE OF [place] CORONARY ARTERY W/O ANG PCTRS (5) BPH (benign prostatic hyperplasia) Code(s): N40.0 - BENIGN PROSTATIC HYPERPLASIA WITHOUT LOWER URINRY TRACT SYMP
--- NOTE | 2017-02-23 15:15 | DS ---
Physical Examination Vital Signs: Vital Signs Temperature 98.0 F 02/23/17 14:02 Pulse Rate 83 02/23/17 14:02 Respiratory Rate 20 02/23/17 14:02 Blood Pressure 104/60 02/23/17 14:02 O2 Sat by Pulse Oximetry (%) 97 02/23/17 09:49 Labs: CBC, BMP 02/23/17 06:00 02/23/17 06:00 Discharge Summary Reason For Visit: SEPSIS Current Active Problems Atrial fibrillation (Acute) BPH (benign prostatic hyperplasia) (Acute) CAD (coronary artery disease) (Acute) Community acquired pneumonia (Acute) Elevated liver enzymes (Acute) HTN (hypertension) (Acute) Pedal edema (Acute) Sepsis (Acute) Condition: Good - Instructions Diet, Activity, Other Instructions: resume previous diet and activity Referrals: Taj Moran MD [Primary Care Provider] - Disposition: HOME - Home Medications Comprehensive Discharge Medication List: Ambulatory Orders Ascorbate Calcium [Vitamin C] 1,000 mg PO DAILY 11/20/14 Aspirin [ASA -] 81 mg PO DAILY 11/20/14 Atorvastatin Ca [Lipitor] 20 mg PO HS 11/20/14 Calcium Carbonate/Vitamin D3 [Calcium 600-Vit D3 200 Tablet] 1 each PO DAILY Cyanocobalamin [Vitamin B12 -] 100 mcg PO DAILY 11/20/14 Isosorbide Mononitrate [Imdur] 60 mg PO DAILY 11/20/14 Metoprolol Succinate [Toprol Xl] 50 mg PO DAILY 11/20/14 Tamsulosin HCl [Flomax -] 0.4 mg PO DAILY 11/20/14 Ubidecarenone [Co Q-10] 10 mg PO DAILY 11/20/14 Vitamin B Complex 1 each PO DAILY 11/20/14 Apixaban [Eliquis] 5 mg PO BID 02/16/17 Ca/D3/Mag#11/Zinc/Monument Erector/Lionel/Bor [Caltrate 600+D Plus Tablet] 1 tab PO BID [place] Fruit [Saw [place]] 450 mg PO DAILY 02/16/17 Amox-Tr/K Cl [Augmentin 875-125mg Tablet -] 1 tab PO BID@0800,1730 #14 tablet
[2017-02-23] MEDS ORDERED: AMOX TR/POT CLAV 875MG/125MG TABLETS (FP) PO SCH (17:30)
== END 2017-02-23 15:39 | disposition home or self-care (01) | DRG 871 ==
LOC: JER 22:45 → JERBED 02-16 01:34 → J8W 02-16 03:36
PROVIDERS: ADMIT Internal Medicine Geriatric Medicine; ATTEND Internal Medicine Geriatric Medicine
DX: A41.9 Sepsis, unspecified organism (principal); J18.9 Pneumonia, unspecified organism; R17 Unspecified jaundice; I25.2 Old myocardial infarction; N40.0 Benign prostatic hyperplasia without lower urinary tract symptoms; I10 Essential (primary) hypertension; I25.10 Atherosclerotic heart disease of native coronary artery without angina pectoris; I48.2 Chronic atrial fibrillation; D69.6 Thrombocytopenia, unspecified; D72.828 Other elevated white blood cell count; R79.89 Other specified abnormal findings of blood chemistry; R60.0 Localized edema; R19.7 Diarrhea, unspecified; Z95.5 Presence of coronary angioplasty implant and graft; Z95.0 Presence of cardiac pacemaker
CPT/HCPCS: 36415; 71010-TC; 71250-TC; 76705-TC; 80048; 80053; 80076; 81003; 81015; 82550; 82803; 83605; 83735; 84100; 84484; 85025; 85610; 85651; 85730; 86850; 86900; 86901; 87040; 87070; 87086; 87205; 87324; 87449; 87899; 93005; 93010; 99284-25

== ENCOUNTER 2017-08-21 11:04 | Emergency (ER) | payer OTHER, MEDICARE ==
[2017-08-21 11:24] VITALS: BP 161/98; PULSE 78; TEMP 97.4; BMI 30.2
--- NOTE | 2017-08-21 11:36 | PDOC ---
Attending Attestation - Resident Resident Name: CorbintoicoraBobo - ED Attending Attestation I have performed the following: I have examined & evaluated the patient, The case was reviewed & discussed with the resident, I agree w/resident's findings & plan, Exceptions are as noted - HPI HPI: 08/21/17 12:10 Discomfort which she relates to the head injury 3 weeks ago. Discomfort is mild and unaccompanied by any other neurological symptoms. He is on Eliquiis therefore is concerned about bleeding. - Physicial Exam PE: 08/21/17 12:10 Examination is entirely normal. Neurological exam is intact. Patient is cheerful and cooperative, fully alert, in no apparent distress The patient indicates tenderness in the left occipital parietal area. There is a scaly, minimally crusted lesion that appears to be tender to palpation. 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 He has had basal cells treated on. He and his were advised to see the stone grader for further evaluation of this lesion and that this is likely what's causing his discomfort. There is no sign of a head injury responsible for headaches. - Medical Decision Making 08/21/17 12:12 Assessment: Superficial skin lesion responsible for discomfort of the scalp. CT negative. Plan: Further dermatologic consultation, or neurologic consultation if a change in character of the headaches.
--- NOTE | 2017-08-21 11:37 | PDOC ---
History of Present Illness - General Chief Complaint: Injury Stated Complaint: HEAD INJURY Time Seen by Provider: 08/21/17 11:19 History Source: Patient Exam Limitations: No Limitations - History of Present Illness Initial Comments: 08/21/17 11:28 The patient is an 87M with a PMH of [place] X2 HAS A STENT, pacemaker in place, BPH , HTN, and Appendectomy who presents to the ER after sustaining 2 episodes of trauma to his head. The patient states that 3 weeks ago, he was opening a drawer that was part of a shelf, and a portable radio on the top of the shelf fell off and hit him on the top of the head. He states that he's felt L sided head pressure since then every time he lays down to go to sleep. He also says that 1.5 weeks ago, he hit his head on a shelf while looking for an item. He denies any LOC, CP, SOB, palpitations, numbness, tingling, or weakness during, before, and after these episodes. Past History - Past Medical History Allergies/Adverse Reactions: Allergies Allergy/AdvReac Type Severity Reaction Status Date / Time Sulfa (Sulfonamide Allergy Severe RASH,HIVES,DIFF Verified 08/21/17 11:13 Antibiotics) BREATHING Home Medications: Ambulatory Orders Ascorbate Calcium [Vitamin C] 1,000 mg PO DAILY 11/20/14 Aspirin [ASA -] 81 mg PO DAILY 11/20/14 Atorvastatin Ca [Lipitor] 20 mg PO HS 11/20/14 Cyanocobalamin [Vitamin B12 -] 100 mcg PO DAILY 11/20/14 Isosorbide Mononitrate [Imdur] 60 mg PO DAILY 11/20/14 Metoprolol Succinate [Toprol Xl] 50 mg PO DAILY 11/20/14 Tamsulosin HCl [Flomax -] 0.4 mg PO DAILY 11/20/14 Ubidecarenone [Co Q-10] 10 mg PO DAILY 11/20/14 Vitamin B Complex 1 each PO DAILY 11/20/14 Apixaban [Eliquis] 2.5 mg PO BID 02/16/17 Paco/D3/Mag11/Zinc/Nuclear Chemistry Technician/Lionel/Bor [Caltrate 600+D Plus Tablet] 1 tab PO BID [place] Fruit [Saw [place]] 450 mg PO DAILY 02/16/17 Furosemide [Lasix] 20 mg PO DAILY 08/21/17 Anemia: No Asthma: No Cancer: Yes (SQUAMOUS CELL FACE-SURGERY, PROSTATE) Cardiac Disorders: Yes ([place] X2 HAS A STENT) CVA: No COPD: No CHF: No Dementia: No Diabetes: No GI Disorders: No Disorders: No HTN: Yes Hypercholesterolemia: Yes Liver Disease: No Seizures: No Thyroid Disease: No - Surgical History Appendectomy: Yes Cardiac Surgery: Yes (PACEMAKER) - Suicide/Smoking/Psychosocial Hx Smoking History: Never smoked Have you smoked in the past 12 months: No Hx Alcohol Use: (wine nightly) Drug/Substance Use Hx: No Substance Use Type: None Hx Substance Use Treatment: No *Physical Exam - Vital Signs Last Vital Signs Temp Pulse Resp BP Pulse Ox 97.4 F L 78 18 161/98 97 08/21/17 11:04 08/21/17 11:04 08/21/17 11:04 08/21/17 11:04 08/21/17 11:04 ED Treatment Course - RADIOLOGY Radiology Studies Ordered: Category Date Time Status HEAD CT WITHOUT CONTRAST [CT] Stat CT Scan 08/21/17 11:23 Ordered Medical Decision Making - Medical Decision Making 08/21/17 12:03 The patient is an [address] [facility] who is presenting with two episodes of head trauma. CT head is negative. The history is strongly indicating a purely mechanical mechanism of his head trauma. I have instructed the patient to follow up with PCP on Thursday and to return with any signs/symptoms of head trauma. *DC/Admit/Observation/Transfer Diagnosis at time of Disposition: Head injury Qualifiers: Encounter type: initial encounter Qualified Code(s): S09.90XA - Unspecified injury of head, initial encounter - Discharge Dispostion Disposition: HOME Condition at time of disposition: Stable Admit: No - Referrals Referrals: Taj Moran MD [Primary Care Provider] - - Patient Instructions Printed Discharge Instructions: DI for Closed Head Injury Additional Instructions: Please return to the ER if symptoms persist, worsen, or new symptoms arise. Please follow up with your primary care physician in 2-3 days. Please return to the ER if you have any signs or symptoms of chest pain, shortness of breath, uncontrollable fever, chills, nausea, vomiting, numbness, tingling, or weakness in any part of your body, changes in vision, or slurred speech. - Post Discharge Activity
== END 2017-08-21 12:18 | disposition home or self-care (01) ==
LOC: FER 11:04
DX: S09.90XA Unspecified injury of head, initial encounter (principal); W22.01XA Walked into wall, initial encounter; Y93.89 Activity, other specified; Y92.9 Unspecified place or not applicable; Z79.01 Long term (current) use of anticoagulants; I25.2 Old myocardial infarction; I10 Essential (primary) hypertension; N40.0 Benign prostatic hyperplasia without lower urinary tract symptoms; E78.00 Pure hypercholesterolemia, unspecified
CPT/HCPCS: 70450-TC; 99283-25

== ENCOUNTER 2018-01-24 15:35 | Inpatient (IN) | payer OTHER, MEDICARE ==
[2018-01-24] MEDS ORDERED: ACETAMINOPHEN 1000 MG/100 ML VIAL (NON FORMULARY) IVPB ONE (16:16)
[2018-01-24] MEDS ORDERED: SODIUM CHLORIDE 500 ML IV STA (16:16)
[2018-01-24] MEDS ORDERED: ACETAMINOPHEN INJECTION 100 ML IVPB ONE (16:22)
[2018-01-24 16:42] LABS: VENOUS PH 7.45 (7.32-7.42); VENOUS PO2 26.8 mmHg (28-48)
[2018-01-24 16:50] LABS: URINE APPEARANCE SLCLOUDY; URINE BILIRUBIN NEGATIVE (<2.0 mg/dL); URINE COLOR DKYELLOW; URINE GLUCOSE (UA) NEGATIVE (NEGATIVE); URINE KETONE TRACE (NEGATIVE); URINE LEUK ESTERASE NEGATIVE (NEGATIVE); URINE NITRITE NEGATIVE (NEGATIVE)
[2018-01-24 16:54] LABS: BASO % 0.4 % (0-2.0); EOS % 0.1 % (0-4.5); HEMATOCRIT 37.3 % (35.4-49); HEMOGLOBIN 12.5 GM/dL (11.7-16.9); LYMPH % 3.8 % (8-40); MCH 31.2 pg (25.7-33.7); MCHC 33.6 g/dl (32.0-35.9); MEAN PLT VOLUME 10.8 fl (7.5-11.1); MONO % 6.8 % (3.8-10.2); NEUT % 88.9 % (42.8-82.8); PLATELET COUNT 115 K/MM3 (134-434); RBC 4.01 M/mm3 (4.00-5.60); RDW 13.8 % (11.9-15.9); URINE PROTEIN 1+ (NEGATIVE); WHITE BLOOD COUNT 8.5 K/mm3 (4.0-10.0)
[2018-01-24 17:03] LABS: EPI CELLS RARE /HPF (FEW); URINE MUCUS RARE
[2018-01-24 17:08] LABS: INR 1.64 (0.82-1.09); PROTHROMBIN TIME (PATIENT) 18.5 SEC (9.7-13.0)
[2018-01-24 17:11] LABS: ACTIVATED PTT 25.7 SECONDS (25.2-36.5)
[2018-01-24] MEDS ORDERED: CEFTRIAXONE 1,000 MG in DEXTROSE 5%-WATER - 50 ML IVPB ONE (17:17)
[2018-01-24] MEDS ORDERED: AZITHROMYCIN IVPB 500 MG in DEXTROSE 5%-WATER - 250 ML IVPB ONE (17:17)
[2018-01-24 17:18] LABS: ALBUMIN 3.7 g/dl (3.4-5.0); ALK PHOS 74 U/L (45-117); ANION GAP 7 (8-16); BILIRUBIN,TOTAL 1.9 mg/dL (0.2-1.0); BLOOD UREA NITROGEN 21 mg/dL (7-18); CALCIUM 8.1 mg/dL (8.5-10.1); CHLORIDE 105 mmol/L (98-107); CO2 28 mmol/L (21-32); CREATININE 0.9 mg/dL (0.7-1.3); GLUCOSE,RANDOM 117 mg/dL (74-106); POTASSIUM 3.6 mmol/L (3.5-5.1); SGOT/AST 45 U/L (15-37); SGPT/ALT 44 U/L (12-78); SODIUM 140 mmol/L (136-145); TOT PROT 6.2 g/dl (6.4-8.2)
--- NOTE | 2018-01-24 17:19 | PDOC ---
History of Present Illness <Santos Miranda - Last Filed: 01/24/18 18:24> - General History Source: Patient Exam Limitations: No Limitations - History of Present Illness Initial Comments: 01/24/18 17:13 Patient is an 87M with history of afib, CAD, CHF, BPH, HTN here today from home complaining of cough, shortness of breath, and diarrhea. He states that his cough and shortness of breath feels like his prior episode of pneumonia from last year. He describes the diarrhea as watery with multiple episodes. Endorses fevers, chills. Denies nausea, vomiting. Denies abdominal pain and chest pain. <Ab Palacios - Last Filed: 01/25/18 09:17> - General Chief Complaint: SIRS, Suspected/Possible Stated Complaint: Diarrhea/FEVER/COUGH Time Seen by Provider: 01/24/18 16:06 Past History <Santos Miranda - Last Filed: 01/24/18 18:24> - Past Medical History Anemia: No Asthma: No Cancer: Yes (SQUAMOUS CELL FACE-SURGERY, PROSTATE) Cardiac Disorders: Yes (MO X2 HAS A STENT) CVA: No COPD: No CHF: No Dementia: No Diabetes: No GI Disorders: No Disorders: No HTN: Yes Hypercholesterolemia: Yes Liver Disease: No Seizures: No Thyroid Disease: No - Surgical History Appendectomy: Yes Cardiac Surgery: Yes (PACEMAKER) - Suicide/Smoking/Psychosocial Hx Smoking History: Former smoker Have you smoked in the past 12 months: No Information on smoking cessation initiated: No Hx Alcohol Use: (wine nightly) Drug/Substance Use Hx: No Substance Use Type: None Hx Substance Use Treatment: No <Ab Palacios - Last Filed: 01/25/18 09:17> - Past Medical History Allergies/Adverse Reactions: Allergies Allergy/AdvReac Type Severity Reaction Status Date / Time Sulfa (Sulfonamide Allergy Severe RASH,HIVES,DIFF Verified 01/24/18 15:40 Antibiotics) BREATHING Home Medications: Ambulatory Orders Ascorbate Calcium [Vitamin C] 1,000 mg PO DAILY 11/20/14 Aspirin [ASA -] 81 mg PO DAILY 11/20/14 Atorvastatin Ca [Lipitor] 20 mg PO HS 11/20/14 Cyanocobalamin [Vitamin B12 -] 100 mcg PO DAILY 11/20/14 Isosorbide Mononitrate [Imdur] 60 mg PO DAILY 11/20/14 Metoprolol Succinate [Toprol Xl] 50 mg PO DAILY 11/20/14 Tamsulosin HCl [Flomax -] 0.4 mg PO DAILY 11/20/14 Ubidecarenone [Co Q-10] 10 mg PO DAILY 11/20/14 Vitamin B Complex 1 each PO DAILY 11/20/14 Apixaban [Eliquis] 2.5 mg PO BID 02/16/17 Paco/D3/Mag11/Zinc/Administrative Associate/Lionel/Bor [Caltrate 600+D Plus Tablet] 1 tab PO BID [place] Fruit [Saw [place]] 450 mg PO DAILY 02/16/17 Review of Systems - Review of Systems Comments:: 01/24/18 17:20 GENERAL/CONSTITUTIONAL: +fever +chills. +weakness. HEAD, EYES, EARS, NOSE AND THROAT: No change in vision. No ear pain or discharge. No sore throat. CARDIOVASCULAR: No chest pain. +shortness of breath RESPIRATORY: No cough, wheezing, or hemoptysis. GASTROINTESTINAL: No nausea, vomiting. +diarrhea. GENITOURINARY: No dysuria, frequency, or change in urination. MUSCULOSKELETAL: No joint or muscle swelling or pain. No neck or back pain. SKIN: No rash NEUROLOGIC: No headache, vertigo, loss of consciousness, or change in strength/ sensation. ENDOCRINE: No increased thirst. No abnormal weight change HEMATOLOGIC/LYMPHATIC: No anemia, easy bleeding, or history of blood clots. ALLERGIC/IMMUNOLOGIC: No hives or skin allergy. <Ab Palacios - Last Filed: 01/25/18 09:17> *Physical Exam - Vital Signs Last Vital Signs Temp Pulse Resp BP Pulse Ox 102.8 F H 98 H 19 151/72 98 01/24/18 15:40 01/24/18 15:40 01/24/18 15:40 01/24/18 15:40 01/24/18 16:50 <Santos Miranda - Last Filed: 01/24/18 18:24> - Vital Signs Last Vital Signs Temp Pulse Resp BP Pulse Ox 102.8 F H 98 H 19 151/72 98 01/24/18 15:40 01/24/18 15:40 01/24/18 15:40 01/24/18 15:40 01/24/18 16:50 - Physical Exam Comments: 01/24/18 17:21 GENERAL: Awake, alert, and fully oriented, in no acute distress HEAD: No signs of trauma, normocephalic, atraumatic EYES: PERRLA, EOMI, sclera anicteric, conjunctiva clear ENT: Auricles normal inspection, hearing grossly normal, nares patent, oropharynx clear without exudates. Moist mucosa NECK: Normal ROM, supple, no lymphadenopathy, JVD, or masses LUNGS: No distress, speaks full sentences, coarse breath sounds on right HEART: Regular rate and rhythm, normal S1 and S2, no murmurs, rubs or gallops, peripheral pulses normal and equal bilaterally. ABDOMEN: Soft, nontender, normoactive bowel sounds. No guarding, no rebound. No masses EXTREMITIES: Normal inspection, Normal range of motion, no edema. No clubbing or cyanosis. NEUROLOGICAL: Cranial nerves II through XII grossly intact. Normal speech, no focal sensorimotor deficits SKIN: Warm, Dry, normal turgor, no rashes or lesions noted. <Ab Palacios - Last Filed: 01/25/18 09:17> ED Treatment Course - LABORATORY CBC & Chemistry Diagram: 01/24/18 16:30 01/24/18 16:30 - ADDITIONAL ORDERS Additional order review: Laboratory Results 01/24/18 01/24/18 01/24/18 16:30 16:30 16:30 PT with INR INR PTT (Actin FS) VBG pH POC VBG pCO2 POC VBG pO2 Mixed VBG HCO3 Sodium 140 Potassium 3.6 Chloride 105 Carbon Dioxide 28 Anion Gap 7 L BUN 21 H Creatinine 0.9 Creat Clearance w eGFR > 60 Random Glucose 117 H D Lactic Acid 1.2 Calcium 8.1 L Total Bilirubin 1.9 H AST 45 H ALT 44 D Alkaline Phosphatase 74 Troponin I 0.05 D Total Protein 6.2 L Albumin 3.7 Urine Color Urine Appearance Urine pH Ur Specific [place] Urine Protein Urine Glucose (UA) Urine Ketones Urine Blood Urine Nitrite Urine Bilirubin Urine Urobilinogen Ur Leukocyte Esterase Urine WBC (Auto) Urine RBC (Auto) Ur Epithelial Cells Urine Mucus 01/24/18 01/24/18 01/24/18 16:30 16:30 16:30 PT with INR 18.50 H INR 1.64 H PTT (Actin FS) 25.7 L VBG pH 7.45 H POC VBG pCO2 41.0 POC VBG pO2 26.8 L D Mixed VBG HCO3 27.8 H Sodium Potassium Chloride Carbon Dioxide Anion Gap BUN Creatinine Creat Clearance w eGFR Random Glucose Lactic Acid Calcium Total Bilirubin AST ALT Alkaline Phosphatase Troponin I Total Protein Albumin Urine Color Dkyellow Urine Appearance Slcloudy Urine pH 5.0 Ur Specific [place] 1.019 Urine Protein 1+ H Urine Glucose (UA) Negative Urine Ketones Trace H Urine Blood 1+ H Urine Nitrite Negative Urine Bilirubin Negative Urine Urobilinogen 2.0 Ur Leukocyte Esterase Negative Urine WBC (Auto) 1 Urine RBC (Auto) 2 Ur Epithelial Cells Rare Urine Mucus Rare 01/24/18 16:30 RBC 4.01 MCV 93.0 MCHC 33.6 RDW 13.8 MPV 10.8 D Neutrophils % 88.9 H Lymphocytes % 3.8 L D Monocytes % 6.8 Eosinophils % 0.1 D Basophils % 0.4 - Medications Given in the ED: ED Medications Discontinued Medications Generic Name Dose Route Start Last Admin Trade Name Kalia PRN Reason Stop Dose Admin Acetaminophen 1,000 mg 01/24/18 16:16 01/24/18 16:29 Ofirmev Injection - IVPB 01/24/18 16:17 1,000 mg ONCE ONE Administration Sodium Chloride 500 mls @ 500 mls/hr 01/24/18 16:16 01/24/18 16:28 Normal Saline - IV 01/24/18 17:15 500 mls/hr ASDIR STA Administration <Ou,Santos - Last Filed: 01/24/18 18:24> - LABORATORY CBC & Chemistry Diagram: 01/25/18 07:25 01/25/18 07:25 - ADDITIONAL ORDERS Additional order review: Laboratory Results 01/24/18 01/24/18 16:30 16:30 VBG pH 7.45 H POC VBG pCO2 41.0 POC VBG pO2 26.8 L D Mixed VBG HCO3 27.8 H Urine Color Dkyellow Urine Appearance Slcloudy Urine pH 5.0 Ur Specific [place] 1.019 Urine Protein 1+ H Urine Glucose (UA) Negative Urine Ketones Trace H Urine Blood 1+ H Urine Nitrite Negative Urine Bilirubin Negative Urine Urobilinogen 2.0 Ur Leukocyte Esterase Negative Urine WBC (Auto) 1 Urine RBC (Auto) 2 Ur Epithelial Cells Rare Urine Mucus Rare 01/24/18 16:30 RBC 4.01 MCV 93.0 MCHC 33.6 RDW 13.8 MPV 10.8 D Neutrophils % 88.9 H Lymphocytes % 3.8 L D Monocytes % 6.8 Eosinophils % 0.1 D Basophils % 0.4 - RADIOLOGY Radiology Studies Ordered: Category Date Time Status CHEST X-RAY PORTABLE* [RAD] Stat Radiology 01/24/18 16:15 Taken - Medications Given in the ED: ED Medications Discontinued Medications Generic Name Dose Route Start Last Admin Trade Name Klaia PRN Reason Stop Dose Admin Acetaminophen 1,000 mg 01/24/18 16:16 01/24/18 16:29 Ofirmev Injection - IVPB 01/24/18 16:17 1,000 mg ONCE ONE Administration <Ab Palacios - Last Filed: 01/25/18 09:17> Medical Decision Making - Medical Decision Making 01/24/18 17:21 Patient is 87M with history of afib, cad, htn, bph and CHF here today with shortness of breath and cough. Patient is septic. Septic workup initiated. Likely pneumonia as source. 01/24/18 17:22 Laboratory Tests 01/24/18 01/24/18 01/24/18 16:30 16:30 16:30 WBC 8.5 Hgb 12.5 Plt Count 115 L D Neutrophils % 88.9 H BUN 21 H Creatinine 0.9 Total Bilirubin 1.9 H Troponin I Urine Nitrite Negative Ur Leukocyte Esterase Negative 01/24/18 16:30 WBC Hgb Plt Count Neutrophils % BUN Creatinine Total Bilirubin Troponin I 0.05 D Urine Nitrite Ur Leukocyte Esterase CBC shows neutrophilia, CMP shows elevated bilirubin, troponin to 0.05. UA clear. CXR shows RLL infiltrate. EKG shows afib with rate of 80. Left axis deviation. RBBB pattern with WRS to 112. No st elevations/depressions. Lateral t wave inversions, biphasic t waves in II, III, avF. 01/25/18 09:15 Admitted to med/surg. Note completed late due to computer failure. <Ab Palacios - Last Filed: 01/25/18 09:17> *DC/Admit/Observation/Transfer - Discharge Dispostion Decision to Admit order: Yes <Santos Miranda - Last Filed: 01/24/18 18:24> <Ab Palacios - Last Filed: 01/25/18 09:17> Diagnosis at time of Disposition: Sepsis, PNA (pneumonia)
--- NOTE | 2018-01-24 17:29 | PDOC ---
Attending Attestation - Resident Resident Name: RemigiodominicAb - ED Attending Attestation I have performed the following: I have examined & evaluated the patient, The case was reviewed & discussed with the resident, I agree w/resident's findings & plan, Exceptions are as noted - HPI HPI: 01/24/18 17:27 "Patient is a 87 M, with PMHx of Afib, CHF, HTN, BPH, who presents with 2 days of fever, diarrhea, shortness of breath, and unproductive cough. Denies CP. States that he feels very congested but when he coughs is unable to bring anything up. Pt also reports profuse watery brown diarrhea. Patient states that his symptoms feel similar to his bout of pneumonia last year. Patient denies recent abdominal pain. Denies N/V. Denies recent hospitalizations (most recent was last year) . Allergies: Sulfa (rxn: rash, hives, difficulty breathing) PCP: Taj Stoddard Hx: Former smoker" - Physicial Exam PE: 01/24/18 17:28 GENERAL: Awake, alert, and fully oriented, in no acute distress. HEAD: No signs of trauma EYES: PERRLA, EOMI, sclera anicteric, conjunctiva clear ENT: Auricles normal inspection, hearing grossly normal, nares patent, oropharynx clear without exudates. Moist mucosa NECK: Nontender, no stepoffs, Normal ROM, supple, no lymphadenopathy, JVD, or masses LUNGS: + RLL rales, no wheezing HEART: Tachycardic. Regular rate and rhythm, normal S1 and S2, no murmurs, rubs or gallops ABDOMEN: Soft, nontender, normoactive bowel sounds. No guarding, no rebound. No masses EXTREMITIES: Normal range of motion, pitting edema. No clubbing or cyanosis. No cords, erythema, or tenderness NEUROLOGICAL: Cranial nerves II through XII intact. 5/5 strength and sensation in all extremities, Normal speech, normal gait, normal cerebellar function SKIN: Warm, Dry, normal turgor, no rashes or lesions noted. " - Medical Decision Making 01/24/18 17:29 87 M presenting with fever, cough, SOB. Vitals notable for fever and hypoxia. Clinical exam consistent with R sided PNA. - Labs, cultures - CXR, UA - Gentle IVF, tylenol - IV abx - Admit 01/24/18 18:29 CXR with RLL PNA. Pt covered for CAP PT admitted to hospitalist.
[2018-01-24] MEDS ORDERED: CEFTRIAXONE 1 GM/50 ML BAG ONE (18:19)
[2018-01-24] MEDS ORDERED: AZITHROMYCIN IVPB 250 ML IVPB ONE (18:19)
--- NOTE | 2018-01-24 21:28 | HP ---
Admitting History and Physical - Primary Care Physician PCP: Taj Moran - Admission Chief Complaint: Fever, Chills, Cough, SOB, Diarrhea History of Present Illness: This is a 87 y/o man with a past medical history of CAD s/p stent, MIx2, CHF, Afib (Eliquis), Thoracic Aortic Aneurysm, HTN, HLD, BPH, Squamos Cell Ca ( surgery), Prostate Ca. Who presents to the ED with fever, chills, non- productive cough, SOB x today and watery diarrhea x 3 days. Patient's family all at bedside, his reports increased lethargy with a subjective fever 103.8 at home. Patient reports feeling tired and same symptoms when he had Pneumonia last year. Patient denies dizziness, WHIPPLE, CP, AP, N/V, constipation, dysuria. History Source: Patient, Family Member Limitations to Obtaining History: No Limitations - Past Medical History Cardiovascular: Yes: AFIB, CAD, CHF, HTN, Hyperlipdemia, MT Renal/: Yes: BPH, Cancer (Prostate) Dermatology: Yes: Squamous Cell (face) - Past Surgical History Past Surgical History: Yes: Permanent Pacemaker, Stent - Smoking History Smoking history: Former smoker Have you smoked in the past 12 months: No - Alcohol/Substance Use Hx Alcohol Use: (wine nightly) History of Substance Use: reports: None - Social History Usual Living Arrangement: Yes: With Spouse ADL: Independent Occupation: retired History of Recent Travel: No Home Medications - Allergies Allergies/Adverse Reactions: Allergies Allergy/AdvReac Type Severity Reaction Status Date / Time Sulfa (Sulfonamide Allergy Severe RASH,HIVES,DIFF Verified 01/24/18 15:40 Antibiotics) BREATHING - Home Medications Home Medications: Ambulatory Orders Ascorbate Calcium [Vitamin C] 1,000 mg PO DAILY 11/20/14 Aspirin [ASA -] 81 mg PO DAILY 11/20/14 Atorvastatin Ca [Lipitor] 20 mg PO HS 11/20/14 Cyanocobalamin [Vitamin B12 -] 100 mcg PO DAILY 11/20/14 Isosorbide Mononitrate [Imdur] 60 mg PO DAILY 11/20/14 Metoprolol Succinate [Toprol Xl] 50 mg PO DAILY 11/20/14 Tamsulosin HCl [Flomax -] 0.4 mg PO DAILY 11/20/14 Ubidecarenone [Co Q-10] 10 mg PO DAILY 11/20/14 Vitamin B Complex 1 each PO DAILY 11/20/14 Apixaban [Eliquis] 2.5 mg PO BID 02/16/17 Paco/D3/Mag11/Zinc/Senior Systems Developer/Lionel/Bor [Caltrate 600+D Plus Tablet] 1 tab PO BID Saw [place] Fruit [Saw [place]] 450 mg PO DAILY 02/16/17 Family Disease History - Family Disease History Family Disease History: Heart Disease: Father Review of Systems - Review of Systems Constitutional: reports: Chills, Fever, Lethargy Eyes: reports: No Symptoms HENT: reports: No Symptoms Neck: reports: No Symptoms Cardiovascular: reports: Edema, Shortness of Breath Respiratory: reports: Cough, SOB, SOB on Exertion Gastrointestinal: reports: Diarrhea Genitourinary: reports: No Symptoms Breasts: reports: No Symptoms Reported Musculoskeletal: reports: No Symptoms Integumentary: reports: No Symptoms Neurological: reports: No Symptoms Endocrine: reports: No Symptoms Hematology/Lymphatic: reports: No Symptoms Psychiatric: reports: No Symptoms Physical Examination Vital Signs: Vital Signs Temperature 99 F 01/24/18 20:44 Pulse Rate 82 01/24/18 20:44 Respiratory Rate 20 01/24/18 20:44 Blood Pressure 130/80 01/24/18 20:44 O2 Sat by Pulse Oximetry (%) 98 01/24/18 16:50 Constitutional: Yes: Well Nourished, No Distress, Calm Eyes: Yes: WNL, Conjunctiva Clear, EOM Intact, PERRL HENT: Yes: WNL, Atraumatic, Normocephalic Neck: Yes: WNL, Supple, Trachea Midline Cardiovascular: Yes: Pulse Irregular, S1, S2 Respiratory: Yes: Diminished, Rhonchi, Wheezes Gastrointestinal: Yes: Normal Bowel Sounds, Soft, Abdomen, Obese ...Rectal Exam: Yes: Deferred Renal/: Yes: WNL Breast(s): Yes: WNL Musculoskeletal: Yes: WNL Extremities: Yes: WNL Edema: Yes Edema: LLE: 1+, RLE: 1+ Peripheral Pulses WNL: Yes Integumentary: Yes: WNL Neurological: Yes: WNL, Alert, Oriented, Cran Nerves II-XII Intact ...Motor Strength: WNL Psychiatric: Yes: WNL, Alert Labs: CBC, BMP 01/24/18 16:30 01/24/18 16:30 Laboratory Results - last 24 hr 01/24/18 01/24/18 01/24/18 16:30 16:30 16:30 WBC 8.5 RBC 4.01 Hgb 12.5 Hct 37.3 MCV 93.0 MCH 31.2 MCHC 33.6 RDW 13.8 Plt Count 115 L D MPV 10.8 D Absolute Neuts (auto) 7.6 Neutrophils % 88.9 H Lymphocytes % 3.8 L D Monocytes % 6.8 Eosinophils % 0.1 D Basophils % 0.4 Nucleated RBC % 0 PT with INR 18.50 H INR 1.64 H PTT (Actin FS) 25.7 L VBG pH POC VBG pCO2 POC VBG pO2 Mixed VBG HCO3 Sodium Potassium Chloride Carbon Dioxide Anion Gap BUN Creatinine Creat Clearance w eGFR Random Glucose Lactic Acid Calcium Total Bilirubin AST ALT Alkaline Phosphatase Troponin I Total Protein Albumin Urine Color Dkyellow Urine Appearance Slcloudy Urine pH 5.0 Ur Specific [place] 1.019 Urine Protein 1+ H Urine Glucose (UA) Negative Urine Ketones Trace H Urine Blood 1+ H Urine Nitrite Negative Urine Bilirubin Negative Urine Urobilinogen 2.0 Ur Leukocyte Esterase Negative Urine WBC (Auto) 1 Urine RBC (Auto) 2 Ur Epithelial Cells Rare Urine Mucus Rare 01/24/18 01/24/18 01/24/18 16:30 16:30 16:30 WBC RBC Hgb Hct MCV MCH MCHC RDW Plt Count MPV Absolute Neuts (auto) Neutrophils % Lymphocytes % Monocytes % Eosinophils % Basophils % Nucleated RBC % PT with INR INR PTT (Actin FS) VBG pH 7.45 H POC VBG pCO2 41.0 POC VBG pO2 26.8 L D Mixed VBG HCO3 27.8 H Sodium 140 Potassium 3.6 Chloride 105 Carbon Dioxide 28 Anion Gap 7 L BUN 21 H Creatinine 0.9 Creat Clearance w eGFR > 60 Random Glucose 117 H D Lactic Acid 1.2 Calcium 8.1 L Total Bilirubin 1.9 H AST 45 H ALT 44 D Alkaline Phosphatase 74 Troponin I Total Protein 6.2 L Albumin 3.7 Urine Color Urine Appearance Urine pH Ur Specific [place] Urine Protein Urine Glucose (UA) Urine Ketones Urine Blood Urine Nitrite Urine Bilirubin Urine Urobilinogen Ur Leukocyte Esterase Urine WBC (Auto) Urine RBC (Auto) Ur Epithelial Cells Urine Mucus 01/24/18 16:30 WBC RBC Hgb Hct MCV MCH MCHC RDW Plt Count MPV Absolute Neuts (auto) Neutrophils % Lymphocytes % Monocytes % Eosinophils % Basophils % Nucleated RBC % PT with INR INR PTT (Actin FS) VBG pH POC VBG pCO2 POC VBG pO2 Mixed VBG HCO3 Sodium Potassium Chloride Carbon Dioxide Anion Gap BUN Creatinine Creat Clearance w eGFR Random Glucose Lactic Acid Calcium Total Bilirubin AST ALT Alkaline Phosphatase Troponin I 0.05 D Total Protein Albumin Urine Color Urine Appearance Urine pH Ur Specific [place] Urine Protein Urine Glucose (UA) Urine Ketones Urine Blood Urine Nitrite Urine Bilirubin Urine Urobilinogen Ur Leukocyte Esterase Urine WBC (Auto) Urine RBC (Auto) Ur Epithelial Cells Urine Mucus Intake & Output 01/21/18 01/22/18 01/23/18 01/24/18 23:59 23:59 23:59 23:59 Weight 79.379 kg Imaging - Results Chest X-ray: Image Reviewed EKG: Image Reviewed Problem List - Problems (1) Sepsis Code(s): A41.9 - SEPSIS, UNSPECIFIED ORGANISM (2) Community acquired pneumonia Code(s): J18.9 - PNEUMONIA, UNSPECIFIED ORGANISM (3) Atrial fibrillation Code(s): I48.91 - UNSPECIFIED ATRIAL FIBRILLATION Qualifiers: Atrial fibrillation type: chronic Qualified Code(s): I48.2 - Chronic atrial fibrillation (4) CAD (coronary artery disease) Code(s): I25.10 - ATHSCL HEART DISEASE OF [place] CORONARY ARTERY W/O ANG PCTRS (5) Pedal edema Code(s): R60.0 - LOCALIZED EDEMA (6) HTN (hypertension) Code(s): I10 - ESSENTIAL (PRIMARY) HYPERTENSION (7) HLD (hyperlipidemia) Code(s): E78.5 - HYPERLIPIDEMIA, UNSPECIFIED (8) BPH (benign prostatic hyperplasia) Code(s): N40.0 - BENIGN PROSTATIC HYPERPLASIA WITHOUT LOWER URINRY TRACT SYMP Assessment/Plan This is a 87 y/o man PMH CAD, s/p stent, PPM, Afib (on Eliquis), CHF, MT x2, Thoracic Aortic Aneurysm, Pnuemonia (2017), HTN, HLD, BPH, Squamous Cell Ca ( face, surgery), Prostate Ca. Admitted for Sepsis secondary to Community Acquired Pneumonia, Acute CHF Exacerbation. Plan: 1. ID Sepsis Community Acquired Pneumonia Sepsis Criteria Met- T Max 102.8, P-98, BUN 21 - CURB65 Score 2 - qSOFA Score 0 - Chest Xray image- RLL Infiltrate - Blood Cultures-pending - Urine culture-pending - Urine Legionella - Appreciate ID consult - Given Ceftriaxone, Azithromycn in ED, will continue - Monitor CBC, BMP - Monitor vitals - Maintain MAP > 65 2. Acute CHF Exacerbation - Chest Xray reviewed - Continue Lasix - BNP in am - Elevate extremities - Strict INOs - Daily weights - Continue home meds - O2 3. Afib - [id number] Score 4 - EKG- afib rate controlled - Continue Eliquis, Metoprolol - Monitor vitals 4. CAD s/p Stent - Continue Asa, BB - EKG reviewed 5. Hypertension - stable - Continue home meds - Low Na Diet - Monitor renal function 6. Hyperlipidemia - Continue Lipitor - Monitor LFTs 7. BPH - Continue Flomax 8. FEN - Fluid Restriction 1L - Replete lytes prn - Low Na, Low Cholesterol Diet 9. DVT ppx - OOB - SCDs - Continue Eliquis Code Status: Full Code Dispo: Requires Inpatient Care Visit type - Emergency Visit Emergency Visit: Yes ED Registration Date: 01/24/18 Care time: The patient presented to the Emergency Department on the above date and was hospitalized for further evaluation of their emergent condition. - New Patient This patient is new to me today: Yes Date on this admission: 01/24/18 - Critical Care Critical Care patient: No Hospitalist Screening - Colonoscopy Questionnaire Colonoscopy Questionnaire: Colonoscopy Questionnaire - Patient: 50 - 75 years old and never had a screening colonoscopy: No History of colon or rectal polyps, or CA: No History of IBD, Crohn's disease or UC: No History of abdominal radiation therapy as a child: No - Relative: 1 with colon or rectal CA, or polyps at age 60 or younger: No Colon or rectal CA diagnosed at age 45 or younger: No Multiple relatives with colon or rectal CA: No - Outcome: Screening Result: Negative Screen
[2018-01-25] MEDS: APIXABAN 2.5 MG TABLET PO SCH ×2 (01:36→10:28)
[2018-01-25] MEDS: ATORVASTATIN CA 20 MG TABLET (FP) PO SCH ×2 (01:36→23:13)
[2018-01-25] MEDS: ASPIRIN 81 MG CHEWABLE TABLETS PO SCH ×2 (01:36→09:14)
[2018-01-25 03:28] VITALS: BMI 31.1
[2018-01-25] MEDS ORDERED: ACETAMINOPHEN 325 MG TABLET (FP) PO PRN (04:45)
[2018-01-25] MEDS ORDERED: FUROSEMIDE 40 MG/4 ML INJECTABLE VIAL IVPUSH ONE (05:11)
[2018-01-25 07:57] LABS: BASO % 0.2 % (0-2.0); EOS % 0.2 % (0-4.5); HEMOGLOBIN 12.9 GM/dL (11.7-16.9); LYMPH % 10.4 % (8-40); MCH 31.4 pg (25.7-33.7); MEAN CELL VOLUME 92.4 fl (80-96); MEAN PLT VOLUME 10.2 fl (7.5-11.1); MONO % 7.1 % (3.8-10.2); NEUT % 82.1 % (42.8-82.8); PLATELET COUNT 107 K/MM3 (134-434); RBC 4.12 M/mm3 (4.00-5.60); RDW 13.8 % (11.9-15.9)
[2018-01-25 08:24] LABS: ANION GAP 6 (8-16); BLOOD UREA NITROGEN 16 mg/dL (7-18); CALCIUM 8.2 mg/dL (8.5-10.1); CHLORIDE 103 mmol/L (98-107); CO2 31 mmol/L (21-32); CREATININE 0.7 mg/dL (0.7-1.3); GLUCOSE,RANDOM 96 mg/dL (74-106); POTASSIUM 3.3 mmol/L (3.5-5.1); SODIUM 140 mmol/L (136-145)
[2018-01-25 08:26] LABS: N-TERMINAL BNP 5169.83 pg/ml (5-450)
[2018-01-25] MEDS ORDERED: DEXTROSE 5%-WATER - 50 ML IVPB ONE ×3 (09:08→17:19)
[2018-01-25] MEDS ORDERED: cefTRIAXone SODIUM 1 GM VIAL ONE (09:08)
[2018-01-25] MEDS: VITAMIN B COMPLEX W/C COMBO TABLET (FP) PO SCH (09:15)
[2018-01-25] MEDS: TAMSULOSIN HCL 0.4 MG CAP.ER.24H (FP) PO SCH (09:15)
[2018-01-25] MEDS: CALCIUM 500MG/VIT-D 200 UNITS COMBO TABLET (FP) PO SCH ×2 (09:15→23:13)
[2018-01-25] MEDS: ASCORBIC ACID 500 MG TABLET (FP) PO SCH (09:15)
[2018-01-25] MEDS: ISOSORBIDE MONONITRATE 60 MG TAB.SR.24H (FP) PO SCH (09:15)
[2018-01-25] MEDS: AZITHROMYCIN IVPB 500 MG in DEXTROSE 5%-WATER - 250 ML IVPB SCH (09:36)
[2018-01-25] MEDS ORDERED: CEFTRIAXONE 1 GM in DEXTROSE 5%-WATER - 50 ML IVPB SCH (10:00)
[2018-01-25] MEDS ORDERED: UBIDECARENONE 10 MG PO SCH (10:00)
[2018-01-25] MEDS ORDERED: SAW PALMETTO FRUIT 450 MG PO SCH (10:00)
--- NOTE | 2018-01-25 10:27 | CON.ID ---
Consult Consult Specialty:: infectious diseases Reason for Consultation:: pneumonia,dirrhoea - History of Present Illness Chief Complaint: cough with sputum production,dirrhoea History of Present Illness: 87 y/o man with a past medical history of CAD s/p stent, MIx2, CHF, Afib ( Eliquis), Thoracic Aortic Aneurysm, HTN, HLD, BPH, Squamos Cell Ca (surgery), Prostate Ca. admitted with fever, chills, non-productive cough, SOB x today and watery diarrhea x 3 days. according to the patient he has been having cough for last couple of weeks and has been producting sputum he does not know exactly what color. It seems patient was more lethargic at home and had a fever of 103.8,but currently patient stable though still has cough and says the dirrhoea still continues patient was started on ceftriaxone and zithro interestingly patient has had pneumonia of the right side in similar fashion last year and was treated with iv abx also noted was his ct of the chest and abdomen on 04/19 last year which did not show any significant findings denies any other issues - History Source History Provided By: Patient Limitations to Obtaining History: No Limitations - Past Medical History Cardio/Vascular: Yes: AFIB, CAD, CHF, HTN, Hyperlipdemia, [place] Renal/: Yes: BPH, Cancer (Prostate) Dermatology: Yes: Squamous Cell (face) - Past Surgical History Past Surgical History: Yes: Permanent Pacemaker, Stent - Alcohol/Substance Use Hx Alcohol Use: (wine nightly) History of Substance Use: reports: None - Smoking History Smoking history: Former smoker Have you smoked in the past 12 months: No - Social History ADL: Independent Occupation: retired History of Recent Travel: No Home Medications - Allergies Allergies/Adverse Reactions: Allergies Allergy/AdvReac Type Severity Reaction Status Date / Time Sulfa (Sulfonamide Allergy Severe RASH,HIVES,DIFF Verified 01/24/18 15:40 Antibiotics) BREATHING - Home Medications Home Medications: Ambulatory Orders Ascorbate Calcium [Vitamin C] 1,000 mg PO DAILY 11/20/14 Aspirin [ASA -] 81 mg PO DAILY 11/20/14 Atorvastatin Ca [Lipitor] 20 mg PO HS 11/20/14 Cyanocobalamin [Vitamin B12 -] 100 mcg PO DAILY 11/20/14 Isosorbide Mononitrate [Imdur] 60 mg PO DAILY 11/20/14 Metoprolol Succinate [Toprol Xl] 50 mg PO DAILY 11/20/14 Tamsulosin HCl [Flomax -] 0.4 mg PO DAILY 11/20/14 Ubidecarenone [Co Q-10] 10 mg PO DAILY 11/20/14 Vitamin B Complex 1 each PO DAILY 11/20/14 Apixaban [Eliquis] 2.5 mg PO BID 02/16/17 Paco/D3/Mag11/Zinc/Hair Spring Cutter/Lionel/Bor [Caltrate 600+D Plus Tablet] 1 tab PO BID Saw [place] Fruit [Saw [place]] 450 mg PO DAILY 02/16/17 Family Disease History - Family Disease History Family Disease History: Heart Disease: Father Review of Systems - Review of Systems Constitutional: reports: Chills, Fever Eyes: reports: No Symptoms HENT: reports: No Symptoms Neck: reports: No Symptoms Cardiovascular: reports: No Symptoms Respiratory: reports: Cough, SOB, Other (sputum production) Gastrointestinal: reports: Diarrhea Genitourinary: reports: No Symptoms Musculoskeletal: reports: No Symptoms Integumentary: reports: No Symptoms Neurological: reports: No Symptoms Endocrine: reports: No Symptoms Hematology/Lymphatic: reports: No Symptoms Psychiatric: reports: No Symptoms Physical Exam Vital Signs: Vital Signs Temperature 99.1 F 01/25/18 09:43 Pulse Rate 80 01/25/18 09:43 Respiratory Rate 18 01/25/18 09:43 Blood Pressure 140/71 01/25/18 09:43 O2 Sat by Pulse Oximetry (%) 88 L 01/24/18 22:00 Constitutional: Yes: Well Nourished, Calm, Mild Distress Eyes: Yes: Conjunctiva Clear HENT: Yes: Atraumatic, Normocephalic Neck: Yes: Supple, Trachea Midline Cardiovascular: Yes: Pulse Irregular Respiratory: Yes: On Nasal O2, Poor Air Entry (at the bases), Rhonchi, Wheezes Gastrointestinal: Yes: Normal Bowel Sounds, Soft Musculoskeletal: Yes: WNL Extremities: Yes: WNL Neurological: Yes: Alert, Oriented Psychiatric: Yes: Alert, Oriented Labs: CBC, BMP 01/25/18 07:25 01/25/18 07:25 Imaging - Results Chest X-ray: Report Reviewed, Image Reviewed Assessment/Plan This is a 87 y/o man PMH CAD, s/p stent, PPM, Afib (on Eliquis), CHF, [place] x2, Thoracic Aortic Aneurysm, Pnuemonia (2017), HTN, HLD, BPH, Squamous Cell Ca ( face, surgery), Prostate Ca. Admitted for Sepsis secondary to Community Acquired Pneumonia, Acute CHF Exacerbation. This patient now has second episode of pneumonia and that too also on the same side Sepsis Community Acquired Pneumonia Afib CAD Hypertension Hyperlipidemia BPH plan will switch to zosyn form ceftriaxone stool for cdiff and parasites and ova resp support incentive sergey rest continue current mgmt
[2018-01-25] MEDS: CYANOCOBALAMIN (VITAMIN B-12) 100 MCG TABLET PO SCH (10:28)
--- NOTE | 2018-01-25 10:39 | PN ---
Progress Note, Physician Chief Complaint: Pt lying in bed in no acute distress. reports cough is better and feeling well. Denies any chest pain, sob, n/v/d - Current Medication List Current Medications: Active Medications Acetaminophen (Tylenol -) 650 mg PO Q6H PRN PRN Reason: FEVER Apixaban (Eliquis -) 2.5 mg PO BID [facility] Last Admin: 01/25/18 10:28 Dose: 2.5 mg Ascorbic Acid (Vitamin C -) 1,000 mg PO DAILY [facility] Last Admin: 01/25/18 09:15 Dose: 1,000 mg Aspirin (Asa -) 81 mg PO DAILY [facility] Last Admin: 01/25/18 09:14 Dose: 81 mg Atorvastatin Calcium (Lipitor -) 20 mg PO HS [facility] Last Admin: 01/25/18 01:36 Dose: 20 mg Calcium Carbonate/Cholecalciferol (Os-Paco 500+D -) 1 tab PO BID [facility] Last Admin: 01/25/18 09:15 Dose: 1 tab Cyanocobalamin (Vitamin B12 -) 100 mcg PO DAILY [facility] Last Admin: 01/25/18 10:28 Dose: 100 mcg Furosemide (Lasix Injection -) 20 mg IVPUSH DAILY [facility] Azithromycin 500 mg/ Dextrose 250 mls @ 250 mls/hr IVPB DAILY [facility] Last Admin: 01/25/18 09:36 Dose: 250 mls/hr Piperacillin Sod/Tazobactam (Sod 3.375 gm/ Dextrose) 50 mls @ 100 mls/hr IVPB Q8H-IV [facility]; Protocol Isosorbide Mononitrate (Imdur -) 60 mg PO DAILY [facility] Last Admin: 01/25/18 09:15 Dose: 60 mg Metoprolol Succinate (Toprol Xl -) 50 mg PO DAILY [facility] Last Admin: 01/25/18 09:15 Dose: 50 mg Multivitamins (Total B With C -) 1 each PO DAILY [facility] Last Admin: 01/25/18 09:15 Dose: 1 each Tamsulosin HCl (Flomax -) 0.4 mg PO DAILY@0830 [facility] Last Admin: 01/25/18 09:15 Dose: 0.4 mg - Objective Vital Signs: Vital Signs Temperature 99.1 F 01/25/18 09:43 Pulse Rate 80 01/25/18 09:43 Respiratory Rate 18 01/25/18 09:43 Blood Pressure 140/71 01/25/18 09:43 O2 Sat by Pulse Oximetry (%) 88 L 01/24/18 22:00 Constitutional: Yes: Well Nourished, No Distress, Calm Cardiovascular: Yes: Pulse Irregular. No: Gallop, Murmur Respiratory: Yes: Regular, Cough, Diminished, Rhonchi (scattered). No: Accessory Muscle Use, SOB, Tachypnea, Wheezes Gastrointestinal: Yes: WNL, Normal Bowel Sounds, Soft. No: Distention, Tenderness Genitourinary: Yes: WNL Edema: Yes Edema: LLE: 1+, RLE: 1+ Neurological: Yes: WNL, Alert, Oriented Psychiatric: Yes: WNL, Alert, Oriented Labs: CBC, BMP 01/25/18 07:25 01/25/18 07:25 INR, PTT INR 1.64 (0.82-1.09) H 01/24/18 16:30 Problem List - Problems (1) Sepsis Assessment/Plan: improving, secondary to HCAP chest xray- RLL infiltrate leukocytosis legionella antigen urine/blood cx neg on azithromycin, Zosyn IV antibx day 2 duonebs prn ID following Code(s): A41.9 - SEPSIS, UNSPECIFIED ORGANISM Qualifiers: Sepsis type: sepsis due to unspecified organism Qualified Code(s): A41.9 - Sepsis, unspecified organism (2) Community acquired pneumonia Assessment/Plan: as above Code(s): J18.9 - PNEUMONIA, UNSPECIFIED ORGANISM Qualifiers: Laterality: right Lung location: lower lobe of lung Qualified Code(s): J18.1 - Lobar pneumonia, unspecified organism (3) HLD (hyperlipidemia) Assessment/Plan: stable continue statin low fat diet Code(s): E78.5 - HYPERLIPIDEMIA, UNSPECIFIED (4) Atrial fibrillation Assessment/Plan: rate controlled continue metoprolol eliquis 5mg bid Code(s): I48.91 - UNSPECIFIED ATRIAL FIBRILLATION Qualifiers: Atrial fibrillation type: chronic Qualified Code(s): I48.2 - Chronic atrial fibrillation (5) BPH (benign prostatic hyperplasia) Assessment/Plan: stable continue flomax Code(s): N40.0 - BENIGN PROSTATIC HYPERPLASIA WITHOUT LOWER URINRY TRACT SYMP Qualifiers: Lower urinary tract symptom presence: symptoms absent Qualified Code(s): N40.0 - Benign prostatic hyperplasia without lower urinary tract symptoms (6) CAD (coronary artery disease) Assessment/Plan: s/p pci, ppm statin/asa Code(s): I25.10 - ATHSCL HEART DISEASE OF [place] CORONARY ARTERY W/O ANG PCTRS Qualifiers: [place] vs. transplanted heart: [place] heart (7) HTN (hypertension) Assessment/Plan: hypotensive here Metoprolol/imdur per parameters Code(s): I10 - ESSENTIAL (PRIMARY) HYPERTENSION Qualifiers: Hypertension type: essential hypertension Qualified Code(s): I10 - Essential (primary) hypertension
[2018-01-25] MEDS ORDERED: PIPERACILLIN/TAZOBACTAM 3.375 GM VIAL IVPB ONE ×2 (12:17→17:19)
[2018-01-25] MEDS: PIPERACILLIN/TAZOB 3.375 GM 3.375 GM in DEXTROSE 5%-WATER - 50 ML IVPB SCH ×2 (12:27→17:26)
--- NOTE | 2018-01-25 12:31 | EKG ---
Test Reason : Blood Pressure : / mmHG Vent. Rate : 080 BPM Atrial Rate : 085 BPM P-R Int : 000 ms QRS Dur : 112 ms QT Int : 366 ms P-R-T Axes : 000 -81 102 degrees QTc Int : 422 ms ATRIAL FIBRILLATION LEFT AXIS DEVIATION NONSPECIFIC INTRAVENTRICULAR CONDUCTION DEFECT INFERIOR INFARCT (CITED ON OR BEFORE 19-SEP-1999) ANTERIOR INFARCT (CITED ON OR BEFORE 19-SEP-1999) ABNORMAL ECG WHEN COMPARED WITH ECG OF 16-FEB-2017 01:31, NO SIGNIFICANT CHANGE WAS FOUND Confirmed by BRIAN GRAMAJO MD ([id number]) on 01/25/2018 12:31:03 PM Referred By: Confirmed By:BRIAN GRAMAJO MD
[2018-01-25] MEDS: POTASSIUM CHLORIDE 10 MEQ in SODIUM CHLORIDE 100 ML IVPB SCH ×3 (14:16→20:34)
[2018-01-25] MEDS ORDERED: ALBUTEROL SO4 2.5/IPRATROPIUM 0.5 INH SOL 3 ML VIAL.NEB. NEB PRN (17:50)
[2018-01-25] MEDS: APIXABAN 5 MG TABLET PO SCH (23:13)
[2018-01-26] MEDS ORDERED: PIPERACILLIN/TAZOBACTAM 3.375 GM VIAL IVPB ONE ×3 (01:19→18:38)
[2018-01-26] MEDS ORDERED: DEXTROSE 5%-WATER - 50 ML IVPB ONE ×3 (01:20→18:38)
[2018-01-26] MEDS: PIPERACILLIN/TAZOB 3.375 GM 3.375 GM in DEXTROSE 5%-WATER - 50 ML IVPB SCH ×3 (01:51→18:40)
[2018-01-26 07:40] LABS: BASO % 0.5 % (0-2.0); EOS % 0.7 % (0-4.5); HEMATOCRIT 37.3 % (35.4-49); HEMOGLOBIN 12.8 GM/dL (11.7-16.9); LYMPH % 15.2 % (8-40); MCH 31.6 pg (25.7-33.7); MCHC 34.2 g/dl (32.0-35.9); MEAN CELL VOLUME 92.4 fl (80-96); MEAN PLT VOLUME 11.1 fl (7.5-11.1); MONO % 7.3 % (3.8-10.2); NEUT % 76.3 % (42.8-82.8); PLATELET COUNT 136 K/MM3 (134-434); RBC 4.04 M/mm3 (4.00-5.60); RDW 13.7 % (11.9-15.9); WHITE BLOOD COUNT 8.6 K/mm3 (4.0-10.0)
[2018-01-26 08:31] LABS: ANION GAP 6 (8-16); BLOOD UREA NITROGEN 18 mg/dL (7-18); CALCIUM 8.4 mg/dL (8.5-10.1); CHLORIDE 104 mmol/L (98-107); CO2 31 mmol/L (21-32); GLUCOSE,RANDOM 91 mg/dL (74-106); POTASSIUM 3.4 mmol/L (3.5-5.1); SODIUM 141 mmol/L (136-145)
[2018-01-26 08:32] LABS: CREATININE 0.9 mg/dL (0.7-1.3)
[2018-01-26] MEDS ORDERED: FUROSEMIDE 40 MG/4 ML INJECTABLE VIAL IVPUSH SCH (10:00)
[2018-01-26] MEDS: TAMSULOSIN HCL 0.4 MG CAP.ER.24H (FP) PO SCH (10:05)
[2018-01-26] MEDS: VITAMIN B COMPLEX W/C COMBO TABLET (FP) PO SCH (10:05)
[2018-01-26] MEDS: ASCORBIC ACID 500 MG TABLET (FP) PO SCH (10:05)
[2018-01-26] MEDS: ASPIRIN 81 MG CHEWABLE TABLETS PO SCH (10:05)
[2018-01-26] MEDS: ISOSORBIDE MONONITRATE 60 MG TAB.SR.24H (FP) PO SCH (10:06)
[2018-01-26] MEDS: CALCIUM 500MG/VIT-D 200 UNITS COMBO TABLET (FP) PO SCH ×2 (10:06→21:06)
[2018-01-26] MEDS: APIXABAN 5 MG TABLET PO SCH ×2 (10:12→21:06)
[2018-01-26] MEDS: CYANOCOBALAMIN (VITAMIN B-12) 100 MCG TABLET PO SCH (10:12)
--- NOTE | 2018-01-26 12:38 | PN ---
Progress Note, Physician Chief Complaint: Mr Magallanes says he is doing better today. Still with small cough but otherwise much improved. Complains of constipation. No chest pain, shortness of breath, nausea/vomiting. - Current Medication List Current Medications: Active Medications Acetaminophen (Tylenol -) 650 mg PO Q6H PRN PRN Reason: FEVER Albuterol/Ipratropium (Duoneb -) 1 amp NEB Q6H PRN PRN Reason: SHORTNESS OF BREATH Apixaban (Eliquis -) 5 mg PO BID [facility] Last Admin: 01/26/18 10:12 Dose: 5 mg Ascorbic Acid (Vitamin C -) 1,000 mg PO DAILY [facility] Last Admin: 01/26/18 10:05 Dose: 1,000 mg Aspirin (Asa -) 81 mg PO DAILY [facility] Last Admin: 01/26/18 10:05 Dose: 81 mg Atorvastatin Calcium (Lipitor -) 20 mg PO HS [facility] Last Admin: 01/25/18 23:13 Dose: 20 mg Calcium Carbonate/Cholecalciferol (Os-Paco 500+D -) 1 tab PO BID [facility] Last Admin: 01/26/18 10:06 Dose: 1 tab Cyanocobalamin (Vitamin B12 -) 100 mcg PO DAILY [facility] Last Admin: 01/26/18 10:12 Dose: 100 mcg Docusate Sodium (Colace -) 100 mg PO BID [facility] Azithromycin 500 mg/ Dextrose 250 mls @ 250 mls/hr IVPB DAILY [facility] Last Admin: 01/25/18 09:36 Dose: 250 mls/hr Piperacillin Sod/Tazobactam (Sod 3.375 gm/ Dextrose) 50 mls @ 100 mls/hr IVPB Q8H-IV [facility]; Protocol Last Admin: 01/26/18 10:06 Dose: 100 mls/hr Isosorbide Mononitrate (Imdur -) 60 mg PO DAILY [facility] Last Admin: 01/26/18 10:06 Dose: 60 mg Metoprolol Succinate (Toprol Xl -) 50 mg PO DAILY [facility] Last Admin: 01/26/18 10:06 Dose: 50 mg Multivitamins (Total B With C -) 1 each PO DAILY [facility] Last Admin: 01/26/18 10:05 Dose: 1 each Polyethylene Glycol (Miralax (For Daily Use) -) 17 gm PO BID [facility] Tamsulosin HCl (Flomax -) 0.4 mg PO DAILY@0830 [facility] Last Admin: 01/26/18 10:05 Dose: 0.4 mg - Objective Vital Signs: Vital Signs Temperature 37.0 C 01/26/18 05:38 Pulse Rate 86 01/26/18 05:38 Respiratory Rate 20 01/26/18 05:38 Blood Pressure 151/83 01/26/18 05:38 O2 Sat by Pulse Oximetry (%) 94 L 01/25/18 21:00 Constitutional: Yes: Well Nourished, No Distress, Calm Cardiovascular: Yes: Pulse Irregular. No: Tachycardia, Gallop, Murmur, Rub Respiratory: Yes: Regular, On Nasal O2, Rhonchi (slight, bibasilar). No: CTA Bilaterally, Rales, Wheezes Gastrointestinal: Yes: Normal Bowel Sounds, Soft. No: Distention, Tenderness Extremities: Yes: WNL Edema: No Labs: CBC, BMP 01/26/18 06:00 01/26/18 06:00 INR, PTT INR 1.64 (0.82-1.09) H 01/24/18 16:30 Problem List - Problems (1) PNA (pneumonia) Assessment/Plan: -afebrile, last fever on admission -appreciate ID assistance -continue zosyn and zithromax -community acquired -improving, plan for discharge when afebrile for 72 hours and cleared by ID Code(s): J18.9 - PNEUMONIA, UNSPECIFIED ORGANISM (2) HLD (hyperlipidemia) Assessment/Plan: -continue statin Code(s): E78.5 - HYPERLIPIDEMIA, UNSPECIFIED (3) Sepsis Assessment/Plan: -resolved -continue antibiotics Code(s): A41.9 - SEPSIS, UNSPECIFIED ORGANISM Qualifiers: Sepsis type: sepsis due to unspecified organism Qualified Code(s): A41.9 - Sepsis, unspecified organism (4) Atrial fibrillation Assessment/Plan: -continue toprol xl and eliquis Code(s): I48.91 - UNSPECIFIED ATRIAL FIBRILLATION Qualifiers: Atrial fibrillation type: chronic Qualified Code(s): I48.2 - Chronic atrial fibrillation (5) BPH (benign prostatic hyperplasia) Assessment/Plan: -continue flomax Code(s): N40.0 - BENIGN PROSTATIC HYPERPLASIA WITHOUT LOWER URINRY TRACT SYMP Qualifiers: Lower urinary tract symptom presence: symptoms absent Qualified Code(s): N40.0 - Benign prostatic hyperplasia without lower urinary tract symptoms (6) CAD (coronary artery disease) Assessment/Plan: -quiescent Code(s): I25.10 - ATHSCL HEART DISEASE OF [place] CORONARY ARTERY W/O ANG PCTRS Qualifiers: [place] vs. transplanted heart: [place] heart (7) HTN (hypertension) Assessment/Plan: -controlled -continue current management Code(s): I10 - ESSENTIAL (PRIMARY) HYPERTENSION Qualifiers: Hypertension type: essential hypertension Qualified Code(s): I10 - Essential (primary) hypertension (8) Pedal edema Assessment/Plan: -CHF documented but no ECHO -consult cardiology to evaluate Code(s): R60.0 - LOCALIZED EDEMA
--- NOTE | 2018-01-26 14:07 | CON.CARD ---
Consult Consult Specialty:: Cardiology (Coverage for Drs. Montes/Elsa) Referred by:: Dr. Sadler Reason for Consultation:: Cardiac evaluation - History of Present Illness Chief Complaint: Shortness of breath and coughing History of Present Illness: Patient is an 87 year old male with underlying history of CAD s/p PCI/stent, NH , thoracic aortic aneurysm, HTN, SSS s/p PPM, hypercholesterolemia, BPH, squamous cell CA, prostate CA and AF who presented with fever, chills, non- productive cough and shortness of breath. He also complained of diarrhea for few days. He had a temperature of 103.8 at home and was reported to be somewhat lethargic. Currently he denies chest pain, shortness of breath or palpitations. He denies fever or chills. He denies nausea, vomiting, diarrhea or abdominal pain. He denies headache or lightheadedness. - History Source History Provided By: Patient, Medical Record Limitations to Obtaining History: Clinical Condition - Past Medical History Cardio/Vascular: Yes: AFIB, CAD, CHF, HTN, Hyperlipdemia, [place] Renal/: Yes: BPH, Cancer (Prostate) Dermatology: Yes: Squamous Cell (face) - Past Surgical History Past Surgical History: Yes: Permanent Pacemaker, Stent - Alcohol/Substance Use Hx Alcohol Use: No (wine nightly) History of Substance Use: reports: None - Smoking History Smoking history: Former smoker Have you smoked in the past 12 months: No - Social History ADL: Independent Occupation: retired History of Recent Travel: No Home Medications - Allergies Allergies/Adverse Reactions: Allergies Allergy/AdvReac Type Severity Reaction Status Date / Time Sulfa (Sulfonamide Allergy Severe RASH,HIVES,DIFF Verified 01/24/18 15:40 Antibiotics) BREATHING - Home Medications Home Medications: Ambulatory Orders Ascorbate Calcium [Vitamin C] 1,000 mg PO DAILY 11/20/14 Aspirin [ASA -] 81 mg PO DAILY 11/20/14 Atorvastatin Ca [Lipitor] 20 mg PO HS 11/20/14 Cyanocobalamin [Vitamin B12 -] 100 mcg PO DAILY 11/20/14 Isosorbide Mononitrate [Imdur] 60 mg PO DAILY 11/20/14 Metoprolol Succinate [Toprol Xl] 50 mg PO DAILY 11/20/14 Tamsulosin HCl [Flomax -] 0.4 mg PO DAILY 11/20/14 Ubidecarenone [Co Q-10] 10 mg PO DAILY 11/20/14 Vitamin B Complex 1 each PO DAILY 11/20/14 Apixaban [Eliquis] 2.5 mg PO BID 02/16/17 Paco/D3/Mag11/Zinc/Principal Biostatistician/Lionel/Bor [Caltrate 600+D Plus Tablet] 1 tab PO BID [place] Fruit [Saw [place]] 450 mg PO DAILY 02/16/17 Family Disease History - Family Disease History Family Disease History: Heart Disease: Father Review of Systems - Review of Systems Constitutional: reports: Chills, Fever Cardiovascular: denies: Chest Pain, Palpitations, Shortness of Breath Respiratory: reports: Cough. denies: Hemoptysis, Orthopnea, PND, SOB, SOB on Exertion, Wheezing Gastrointestinal: reports: Diarrhea. denies: Abdominal Pain, Constipation, Melena, Nausea, Rectal Bleeding, Vomiting Genitourinary: denies: Dysuria, Hematuria Musculoskeletal: denies: Back Pain, Joint Pain Neurological: reports: Weakness. denies: Dizziness, Headache, Seizure, Syncope Vital Signs: Vital Signs Temperature 98.6 F 01/26/18 05:38 Pulse Rate 86 01/26/18 05:38 Respiratory Rate 20 01/26/18 05:38 Blood Pressure 151/83 01/26/18 05:38 O2 Sat by Pulse Oximetry (%) 98 01/26/18 09:00 Eyes: Yes: PERRL HENT: Yes: Atraumatic Neck: Yes: Supple Respiratory: Yes: Diminished Gastrointestinal: Yes: Normal Bowel Sounds, Soft Cardiovascular: Yes: Pulse Irregular JVD: No Carotid Bruit: No PMI: Non-Displaced Heart Sounds: Yes: S1, S2. No: Gallop Murmur: Yes: Systolic Murmur, Grade 1 Edema: No - Other Data Labs, Other Data: CBC, BMP 01/26/18 06:00 01/26/18 06:00 INR, PTT INR 1.64 (0.82-1.09) H 01/24/18 16:30 Troponin, BNP 01/26/18 06:00 B-Natriuretic Peptide 3190.28 H Atrial fibrillation Imaging - Results Chest X-ray: Report Reviewed (Right lower lobe infiltrates) EKG: Report Reviewed Problem List - Problems (1) HLD (hyperlipidemia) Code(s): E78.5 - HYPERLIPIDEMIA, UNSPECIFIED Qualifiers: Hyperlipidemia type: pure hypercholesterolemia Qualified Code(s): E78.00 - Pure hypercholesterolemia, unspecified; E78.0 - Pure hypercholesterolemia (2) PNA (pneumonia) Code(s): J18.9 - PNEUMONIA, UNSPECIFIED ORGANISM Qualifiers: Pneumonia type: due to unspecified organism Laterality: right Lung location: lower lobe of lung Qualified Code(s): J18.1 - Lobar pneumonia, unspecified organism (3) Sepsis Code(s): A41.9 - SEPSIS, UNSPECIFIED ORGANISM Qualifiers: Sepsis type: sepsis due to unspecified organism Qualified Code(s): A41.9 - Sepsis, unspecified organism (4) Atrial fibrillation Code(s): I48.91 - UNSPECIFIED ATRIAL FIBRILLATION Qualifiers: Atrial fibrillation type: chronic Qualified Code(s): I48.2 - Chronic atrial fibrillation (5) BPH (benign prostatic hyperplasia) Code(s): N40.0 - BENIGN PROSTATIC HYPERPLASIA WITHOUT LOWER URINRY TRACT SYMP Qualifiers: Lower urinary tract symptom presence: symptoms absent Qualified Code(s): N40.0 - Benign prostatic hyperplasia without lower urinary tract symptoms (6) CAD (coronary artery disease) Code(s): I25.10 - ATHSCL HEART DISEASE OF [place] CORONARY ARTERY W/O ANG PCTRS Qualifiers: [place] vs. transplanted heart: [place] heart (7) HTN (hypertension) Code(s): I10 - ESSENTIAL (PRIMARY) HYPERTENSION Qualifiers: Hypertension type: essential hypertension Qualified Code(s): I10 - Essential (primary) hypertension Assessment/Plan 1. Clinical presentation c/w pneumonia 2. Permanent AF [id number] score of 4 3. HTN 4. Hypercholesterolemia 5. CAD h/o NH and PCI/stent, angina pectoris 6. History of squamous cell CA (facial) and prostate CA 7. Throracic aortic aneurysm PLAN: 1. Empiric antibiotic coverage as per ID 2. Continue Eliquis and also on ASA in view of CAD with history of NH 3. Continue Metoprolol 4. Continue Imdur 5. Statin Further plans are to follow Fausto Guerrier MD
[2018-01-26] MEDS: AZITHROMYCIN IVPB 500 MG in DEXTROSE 5%-WATER - 250 ML IVPB SCH (14:08)
[2018-01-26] MEDS: POLYETHYLENE GLYCOL 3350 119 GM BTL PO SCH ×3 (14:08→21:06)
[2018-01-26] MEDS: DOCUSATE SODIUM 100 MG CAPSULE (FP) PO SCH ×2 (14:09→21:06)
--- NOTE | 2018-01-26 15:08 | PN ---
Progress Note, Physician History of Present Illness: feeling much better breathing well no complaints family in room - Current Medication List Current Medications: Active Medications Acetaminophen (Tylenol -) 650 mg PO Q6H PRN PRN Reason: FEVER Albuterol/Ipratropium (Duoneb -) 1 amp NEB Q6H PRN PRN Reason: SHORTNESS OF BREATH Apixaban (Eliquis -) 5 mg PO BID [facility] Last Admin: 01/26/18 10:12 Dose: 5 mg Ascorbic Acid (Vitamin C -) 1,000 mg PO DAILY [facility] Last Admin: 01/26/18 10:05 Dose: 1,000 mg Aspirin (Asa -) 81 mg PO DAILY [facility] Last Admin: 01/26/18 10:05 Dose: 81 mg Atorvastatin Calcium (Lipitor -) 20 mg PO HS [facility] Last Admin: 01/25/18 23:13 Dose: 20 mg Calcium Carbonate/Cholecalciferol (Os-Paco 500+D -) 1 tab PO BID [facility] Last Admin: 01/26/18 10:06 Dose: 1 tab Cyanocobalamin (Vitamin B12 -) 100 mcg PO DAILY [facility] Last Admin: 01/26/18 10:12 Dose: 100 mcg Docusate Sodium (Colace -) 100 mg PO BID [facility] Last Admin: 01/26/18 14:09 Dose: 100 mg Azithromycin 500 mg/ Dextrose 250 mls @ 250 mls/hr IVPB DAILY [facility] Last Admin: 01/26/18 14:08 Dose: 250 mls/hr Piperacillin Sod/Tazobactam (Sod 3.375 gm/ Dextrose) 50 mls @ 100 mls/hr IVPB Q8H-IV [facility]; Protocol Last Admin: 01/26/18 10:06 Dose: 100 mls/hr Isosorbide Mononitrate (Imdur -) 60 mg PO DAILY [facility] Last Admin: 01/26/18 10:06 Dose: 60 mg Metoprolol Succinate (Toprol Xl -) 50 mg PO DAILY [facility] Last Admin: 01/26/18 10:06 Dose: 50 mg Multivitamins (Total B With C -) 1 each PO DAILY [facility] Last Admin: 01/26/18 10:05 Dose: 1 each Polyethylene Glycol (Miralax (For Daily Use) -) 17 gm PO BID [facility] Last Admin: 01/26/18 14:23 Dose: Not Given Tamsulosin HCl (Flomax -) 0.4 mg PO DAILY@0830 [facility] Last Admin: 01/26/18 10:05 Dose: 0.4 mg - Objective Vital Signs: Vital Signs Temperature 97.7 F 01/26/18 14:06 Pulse Rate 81 01/26/18 14:06 Respiratory Rate 20 01/26/18 14:06 Blood Pressure 117/70 01/26/18 14:06 O2 Sat by Pulse Oximetry (%) 98 01/26/18 09:00 Constitutional: Yes: No Distress, Calm Cardiovascular: Yes: S1, S2 Respiratory: Yes: Regular, CTA Bilaterally Gastrointestinal: Yes: Normal Bowel Sounds, Soft Musculoskeletal: Yes: WNL Extremities: Yes: WNL Neurological: Yes: Alert, Oriented Psychiatric: Yes: Alert, Oriented Labs: CBC, BMP 01/26/18 06:00 01/26/18 06:00 INR, PTT INR 1.64 (0.82-1.09) H 01/24/18 16:30 Assessment/Plan This is a 87 y/o man PMH CAD, s/p stent, PPM, Afib (on Eliquis), CHF, [place] x2, Thoracic Aortic Aneurysm, Pnuemonia (2017), HTN, HLD, BPH, Squamous Cell Ca ( face, surgery), Prostate Ca. Admitted for Sepsis secondary to Community Acquired Pneumonia, Acute CHF Exacerbation. This patient now has second episode of pneumonia and that too also on the same side Sepsis Community Acquired Pneumonia Afib CAD Hypertension Hyperlipidemia BPH plan continue abx doing well resp support incentive sergey rest continue current mgmt will d/w the primary team
[2018-01-26] MEDS: ATORVASTATIN CA 20 MG TABLET (FP) PO SCH (21:06)
[2018-01-27] MEDS ORDERED: DEXTROSE 5%-WATER - 50 ML IVPB ONE ×3 (01:53→17:29)
[2018-01-27] MEDS ORDERED: PIPERACILLIN/TAZOBACTAM 3.375 GM VIAL IVPB ONE ×3 (01:53→17:28)
[2018-01-27] MEDS: PIPERACILLIN/TAZOB 3.375 GM 3.375 GM in DEXTROSE 5%-WATER - 50 ML IVPB SCH ×3 (01:59→17:53)
[2018-01-27 07:12] LABS: BASO % 0.5 % (0-2.0); EOS % 2.3 % (0-4.5); HEMOGLOBIN 12.1 GM/dL (11.7-16.9); LYMPH % 15.1 % (8-40); MCH 31.8 pg (25.7-33.7); MCHC 34.5 g/dl (32.0-35.9); MONO % 6.3 % (3.8-10.2); NEUT % 75.8 % (42.8-82.8); PLATELET COUNT 145 K/MM3 (134-434); RDW 13.7 % (11.9-15.9); WHITE BLOOD COUNT 7.5 K/mm3 (4.0-10.0)
[2018-01-27 08:32] LABS: CHLORIDE 104 mmol/L (98-107); POTASSIUM 3.4 mmol/L (3.5-5.1); SODIUM 141 mmol/L (136-145)
[2018-01-27] MEDS: TAMSULOSIN HCL 0.4 MG CAP.ER.24H (FP) PO SCH (08:52)
[2018-01-27 08:53] LABS: ANION GAP 8 (8-16); BLOOD UREA NITROGEN 18 mg/dL (7-18); CALCIUM 8.6 mg/dL (8.5-10.1); CO2 29 mmol/L (21-32); CREATININE 0.8 mg/dL (0.7-1.3); GLUCOSE,RANDOM 92 mg/dL (74-106); MAGNESIUM 1.8 mg/dL (1.8-2.4); PHOSPHOROUS 3.4 mg/dL (2.5-4.9)
[2018-01-27] MEDS: CALCIUM 500MG/VIT-D 200 UNITS COMBO TABLET (FP) PO SCH ×2 (10:23→22:36)
[2018-01-27] MEDS: VITAMIN B COMPLEX W/C COMBO TABLET (FP) PO SCH (10:23)
[2018-01-27] MEDS: ISOSORBIDE MONONITRATE 60 MG TAB.SR.24H (FP) PO SCH (10:23)
[2018-01-27] MEDS: DOCUSATE SODIUM 100 MG CAPSULE (FP) PO SCH ×2 (10:23→22:36)
[2018-01-27] MEDS: ASCORBIC ACID 500 MG TABLET (FP) PO SCH (10:23)
[2018-01-27] MEDS: ASPIRIN 81 MG CHEWABLE TABLETS PO SCH (10:23)
[2018-01-27] MEDS: POLYETHYLENE GLYCOL 3350 119 GM BTL PO SCH ×2 (10:24→22:36)
[2018-01-27] MEDS: APIXABAN 5 MG TABLET PO SCH ×2 (10:24→22:36)
[2018-01-27] MEDS: CYANOCOBALAMIN (VITAMIN B-12) 100 MCG TABLET PO SCH (10:26)
--- NOTE | 2018-01-27 10:45 | CONSULT ---
Admitting History and Physical - Primary Care Physician PCP: Kenji Sadler - Admission History of Present Illness: This is a 87 y/o man PMH CAD, s/p stent, PPM, Afib (on Eli), CHF, [place] x2, Thoracic Aortic Aneurysm, Pnuemonia (2017), HTN, HLD, BPH, Squamous Cell Ca ( face, surgery), Prostate Ca. Admitted for Sepsis secondary to Community Acquired Pneumonia, Acute CHF Exacerbation. Selected Entries 01/26/18 01/26/18 01/26/18 05:38 10:44 14:06 Breakfast 100% Lunch 75% Temperature 98.6 F 97.7 F 01/26/18 01/26/18 01/27/18 17:37 22:00 01:36 Breakfast Lunch Temperature 98.2 F 98.5 F 98.1 F 01/27/18 01/27/18 06:28 09:00 Breakfast Lunch Temperature 97.9 F 98.5 F Laboratory Tests 01/25/18 01/27/18 07:25 06:30 WBC 11.0 H 7.5 This is my first consult with this pt. Recurrent RLL PNA. History Source: Patient, Medical Record Limitations to Obtaining History: No Limitations (Does not recall all of his medical problems in detail.Pt reports h/o biopsy in throat?esophagus? by Dr. Norton many years ago that was normal. Also h/o left Wade's Palsy.) - Past Medical History Cardiovascular: Yes: AFIB, CAD, CHF, HTN, Hyperlipdemia, [place] Renal/: Yes: BPH, Cancer (Prostate) Dermatology: Yes: Squamous Cell (face) - Past Surgical History Past Surgical History: Yes: Permanent Pacemaker, Stent - Smoking History Smoking history: Former smoker (quit 1973) Have you smoked in the past 12 months: No - Alcohol/Substance Use Hx Alcohol Use: No (wine nightly) History of Substance Use: reports: None - Social History ADL: Independent Occupation: retired History of Recent Travel: No History - Admission Reason For Visit: PNEUMONIA - Diagnostics X-ray: Report Reviewed CT Scan: Report Reviewed - General Mental Status: Alert and Oriented, Awake and Alert, Able to Follow Commands Attention: Intact Ability to Follow Directions: Good Head/Neck Control: WFL - Hearing Hearing: Normal Speech Evaluation - Communication Primary Language: CITIZEN OF [place] Communication: Yes: Within Normal Limits Oral Expression Ability: Yes: No Impairment - Speech Production Able to Make Needs Known: Yes: WNL Intelligibility: Yes: WNL - Speech Characteristics Voice Loudness: Normal Voice Pitch: Yes: Normal Speech Pattern: Normal Speech Clarity: < 100% Nasal Resonance: Normal Articulation: Yes: Precise Rate of Speech: Intact - Language/Auditory Comprehension Follows: Yes: 1 Stage Simple Commands - Language/Verbal Expression Able to Respond to Simple Queries: Yes: WNL Able to Communicate Wants and Needs: Yes: WNL Functional Communication Status: Yes: WNL - Swallow Evaluation/Bedside Assessment Current Nutritional Intake: Soft, Thin Liquids Oral Secretions: Yes: WFL Dentition: Yes: Adequate Facial Symmetry at Rest: Symmetrical Facial Movement: Controlled Against Resistance Opening: Normal Against Resistance Closing: Normal Pucker Lips: Normal Smile: Normal Lingual Movement: Deviates Left (slight) Lingual Speed of Movement: Normal Lingual Movement Strgth Against Opposition: Normal Lingual Movement Characteristics: Normal Velopharyngeal Movement: Normal Laryngeal Movement: Able to Palpate Rate of Intake: WFL Bolus Size: WFL Labial Seal: WFL Chewing: WFL Oral Prep Time: WFL A-P Transit: WFL Pocketing: None Timing of Swallow: Delayed Coughing/Throat Clear: Yes (thin?) Recommendations - Speech Evaluation, Impression/Plan Impression: Pt with recurrent RLL PNA. Swallowing overtly functional, with soft signs of cough with thin liquids? Pt reports occasional stasis of solids, needing to drink to clear. - Dysphagia Impressions/Plan Dysphagia Impressions: Minimal Impairment, Ongoing Evaluation *Silent aspiration: cannot be R/O at bedside Recommendations: Modified Barium Swallow (r/o silent aspiration/pharyngeal/ esophageal hang up?)
[2018-01-27] MEDS: AZITHROMYCIN IVPB 500 MG in DEXTROSE 5%-WATER - 250 ML IVPB SCH (11:33)
--- NOTE | 2018-01-27 13:15 | PN ---
Progress Note, Physician Chief Complaint: Mr Magallanes says he is feeling well and is hoping to go home tomorrow. No cp , sob, n/v. - Current Medication List Current Medications: Active Medications Acetaminophen (Tylenol -) 650 mg PO Q6H PRN PRN Reason: FEVER Albuterol/Ipratropium (Duoneb -) 1 amp NEB Q6H PRN PRN Reason: SHORTNESS OF BREATH Last Admin: 01/26/18 20:30 Dose: 1 amp Apixaban (Eliquis -) 5 mg PO BID [facility] Last Admin: 01/27/18 10:24 Dose: 5 mg Ascorbic Acid (Vitamin C -) 1,000 mg PO DAILY [facility] Last Admin: 01/27/18 10:23 Dose: 1,000 mg Aspirin (Asa -) 81 mg PO DAILY [facility] Last Admin: 01/27/18 10:23 Dose: 81 mg Atorvastatin Calcium (Lipitor -) 20 mg PO HS [facility] Last Admin: 01/26/18 21:06 Dose: 20 mg Calcium Carbonate/Cholecalciferol (Os-Paco 500+D -) 1 tab PO BID [facility] Last Admin: 01/27/18 10:23 Dose: 1 tab Cyanocobalamin (Vitamin B12 -) 100 mcg PO DAILY [facility] Last Admin: 01/27/18 10:26 Dose: 100 mcg Docusate Sodium (Colace -) 100 mg PO BID [facility] Last Admin: 01/27/18 10:23 Dose: 100 mg Azithromycin 500 mg/ Dextrose 250 mls @ 250 mls/hr IVPB DAILY [facility] Last Admin: 01/27/18 11:33 Dose: 250 mls/hr Piperacillin Sod/Tazobactam (Sod 3.375 gm/ Dextrose) 50 mls @ 100 mls/hr IVPB Q8H-IV [facility]; Protocol Last Admin: 01/27/18 10:24 Dose: 100 mls/hr Isosorbide Mononitrate (Imdur -) 60 mg PO DAILY [facility] Last Admin: 01/27/18 10:23 Dose: 60 mg Metoprolol Succinate (Toprol Xl -) 50 mg PO DAILY [facility] Last Admin: 01/27/18 10:23 Dose: 50 mg Multivitamins (Total B With C -) 1 each PO DAILY [facility] Last Admin: 01/27/18 10:23 Dose: 1 each Polyethylene Glycol (Miralax (For Daily Use) -) 17 gm PO BID [facility] Last Admin: 01/27/18 10:24 Dose: Not Given Tamsulosin HCl (Flomax -) 0.4 mg PO DAILY@0830 [facility] Last Admin: 01/27/18 08:52 Dose: 0.4 mg - Objective Vital Signs: Vital Signs Temperature 36.9 C 01/27/18 09:00 Pulse Rate 78 01/27/18 09:00 Respiratory Rate 20 01/27/18 09:00 Blood Pressure 141/72 01/27/18 09:00 O2 Sat by Pulse Oximetry (%) 95 01/27/18 09:00 Constitutional: Yes: Well Nourished, No Distress, Calm Cardiovascular: Yes: Regular Rate and Rhythm. No: Gallop, Murmur, Rub Respiratory: Yes: Regular, CTA Bilaterally. No: Rales, Rhonchi, Wheezes Gastrointestinal: Yes: Normal Bowel Sounds, Soft. No: Distention, Tenderness Extremities: Yes: WNL Edema: Yes Edema: LLE: 2+, RLE: 2+ Labs: CBC, BMP 01/27/18 06:30 01/27/18 06:30 INR, PTT INR 1.64 (0.82-1.09) H 01/24/18 16:30 Problem List - Problems (1) PNA (pneumonia) Code(s): J18.9 - PNEUMONIA, UNSPECIFIED ORGANISM Qualifiers: Pneumonia type: due to unspecified organism Laterality: right Lung location: lower lobe of lung Qualified Code(s): J18.1 - Lobar pneumonia, unspecified organism (2) HLD (hyperlipidemia) Code(s): E78.5 - HYPERLIPIDEMIA, UNSPECIFIED Qualifiers: Hyperlipidemia type: pure hypercholesterolemia Qualified Code(s): E78.00 - Pure hypercholesterolemia, unspecified; E78.0 - Pure hypercholesterolemia (3) Sepsis Code(s): A41.9 - SEPSIS, UNSPECIFIED ORGANISM Qualifiers: Sepsis type: sepsis due to unspecified organism Qualified Code(s): A41.9 - Sepsis, unspecified organism (4) Atrial fibrillation Code(s): I48.91 - UNSPECIFIED ATRIAL FIBRILLATION Qualifiers: Atrial fibrillation type: chronic Qualified Code(s): I48.2 - Chronic atrial fibrillation (5) BPH (benign prostatic hyperplasia) Code(s): N40.0 - BENIGN PROSTATIC HYPERPLASIA WITHOUT LOWER URINRY TRACT SYMP Qualifiers: Lower urinary tract symptom presence: symptoms absent Qualified Code(s): N40.0 - Benign prostatic hyperplasia without lower urinary tract symptoms (6) CAD (coronary artery disease) Code(s): I25.10 - ATHSCL HEART DISEASE OF [place] CORONARY ARTERY W/O ANG PCTRS Qualifiers: [place] vs. transplanted heart: [place] heart (7) HTN (hypertension) Code(s): I10 - ESSENTIAL (PRIMARY) HYPERTENSION Qualifiers: Hypertension type: essential hypertension Qualified Code(s): I10 - Essential (primary) hypertension (8) Pedal edema Code(s): R60.0 - LOCALIZED EDEMA Assessment/Plan (1) PNA (pneumonia) Assessment/Plan: -case d/w ID -wants 4 days of IV antibiotics -plan for discharge Thursday on oral if remains stable -concern for aspiration, speech therapy evaluated and MBS pending Code(s): J18.9 - PNEUMONIA, UNSPECIFIED ORGANISM (2) HLD (hyperlipidemia) Assessment/Plan: -continue statin Code(s): E78.5 - HYPERLIPIDEMIA, UNSPECIFIED (3) Sepsis Assessment/Plan: -resolved -continue antibiotics Code(s): A41.9 - SEPSIS, UNSPECIFIED ORGANISM Qualifiers: Sepsis type: sepsis due to unspecified organism Qualified Code(s): A41.9 - Sepsis, unspecified organism (4) Atrial fibrillation Assessment/Plan: -continue toprol xl and eliquis Code(s): I48.91 - UNSPECIFIED ATRIAL FIBRILLATION Qualifiers: Atrial fibrillation type: chronic Qualified Code(s): I48.2 - Chronic atrial fibrillation (5) BPH (benign prostatic hyperplasia) Assessment/Plan: -continue flomax Code(s): N40.0 - BENIGN PROSTATIC HYPERPLASIA WITHOUT LOWER URINRY TRACT SYMP Qualifiers: Lower urinary tract symptom presence: symptoms absent Qualified Code(s): N40.0 - Benign prostatic hyperplasia without lower urinary tract symptoms (6) CAD (coronary artery disease) Assessment/Plan: -quiescent Code(s): I25.10 - ATHSCL HEART DISEASE OF [place] CORONARY ARTERY W/O ANG PCTRS Qualifiers: [place] vs. transplanted heart: [place] heart (7) HTN (hypertension) Assessment/Plan: -controlled -continue current management Code(s): I10 - ESSENTIAL (PRIMARY) HYPERTENSION Qualifiers: Hypertension type: essential hypertension Qualified Code(s): I10 - Essential (primary) hypertension (8) Pedal edema Assessment/Plan: -cardiology note reviewed Code(s): R60.0 - LOCALIZED EDEMA
--- NOTE | 2018-01-27 13:43 | PN ---
Progress Note, Physician History of Present Illness: stable doing well no issues breathing much better for speech ansd swallow studies - Current Medication List Current Medications: Active Medications Acetaminophen (Tylenol -) 650 mg PO Q6H PRN PRN Reason: FEVER Albuterol/Ipratropium (Duoneb -) 1 amp NEB Q6H PRN PRN Reason: SHORTNESS OF BREATH Last Admin: 01/26/18 20:30 Dose: 1 amp Apixaban (Eliquis -) 5 mg PO BID [facility] Last Admin: 01/27/18 10:24 Dose: 5 mg Ascorbic Acid (Vitamin C -) 1,000 mg PO DAILY [facility] Last Admin: 01/27/18 10:23 Dose: 1,000 mg Aspirin (Asa -) 81 mg PO DAILY [facility] Last Admin: 01/27/18 10:23 Dose: 81 mg Atorvastatin Calcium (Lipitor -) 20 mg PO HS [facility] Last Admin: 01/26/18 21:06 Dose: 20 mg Calcium Carbonate/Cholecalciferol (Os-Paco 500+D -) 1 tab PO BID [facility] Last Admin: 01/27/18 10:23 Dose: 1 tab Cyanocobalamin (Vitamin B12 -) 100 mcg PO DAILY [facility] Last Admin: 01/27/18 10:26 Dose: 100 mcg Docusate Sodium (Colace -) 100 mg PO BID [facility] Last Admin: 01/27/18 10:23 Dose: 100 mg Azithromycin 500 mg/ Dextrose 250 mls @ 250 mls/hr IVPB DAILY [facility] Last Admin: 01/27/18 11:33 Dose: 250 mls/hr Piperacillin Sod/Tazobactam (Sod 3.375 gm/ Dextrose) 50 mls @ 100 mls/hr IVPB Q8H-IV [facility]; Protocol Last Admin: 01/27/18 10:24 Dose: 100 mls/hr Isosorbide Mononitrate (Imdur -) 60 mg PO DAILY [facility] Last Admin: 01/27/18 10:23 Dose: 60 mg Metoprolol Succinate (Toprol Xl -) 50 mg PO DAILY [facility] Last Admin: 01/27/18 10:23 Dose: 50 mg Multivitamins (Total B With C -) 1 each PO DAILY [facility] Last Admin: 01/27/18 10:23 Dose: 1 each Polyethylene Glycol (Miralax (For Daily Use) -) 17 gm PO BID [facility] Last Admin: 01/27/18 10:24 Dose: Not Given Tamsulosin HCl (Flomax -) 0.4 mg PO DAILY@0830 [facility] Last Admin: 01/27/18 08:52 Dose: 0.4 mg - Objective Vital Signs: Vital Signs Temperature 98.5 F 01/27/18 09:00 Pulse Rate 78 01/27/18 09:00 Respiratory Rate 20 01/27/18 09:00 Blood Pressure 141/72 01/27/18 09:00 O2 Sat by Pulse Oximetry (%) 95 01/27/18 09:00 Constitutional: Yes: No Distress, Calm Cardiovascular: Yes: Regular Rate and Rhythm Respiratory: Yes: Regular, Poor Air Entry Gastrointestinal: Yes: Normal Bowel Sounds, Soft Musculoskeletal: Yes: WNL Extremities: Yes: WNL Labs: CBC, BMP 01/27/18 06:30 01/27/18 06:30 INR, PTT INR 1.64 (0.82-1.09) H 01/24/18 16:30 Assessment/Plan This is a 87 y/o man PMH CAD, s/p stent, PPM, Afib (on Eliquis), CHF, [place] x2, Thoracic Aortic Aneurysm, Pnuemonia (2017), HTN, HLD, BPH, Squamous Cell Ca ( face, surgery), Prostate Ca. Admitted for Sepsis secondary to Community Acquired Pneumonia, Acute CHF Exacerbation. This patient now has second episode of pneumonia and that too also on the same side Sepsis Community Acquired Pneumonia Afib CAD Hypertension Hyperlipidemia BPH plan continue abx doing well resp support incentive sergey will await speech and swallow study result
--- NOTE | 2018-01-27 16:58 | PN ---
Progress Note (short form) - Note Progress Note: s: no cp palps dizzy; sob/cough better o: Vital Signs Period Temp Pulse Resp BP Sys/Louise Pulse Ox Last 24 Hr 97.9 F-98.5 F 66-88 18-20 128-155/66-89 95-96 nad no jvd irreg s1s2 no mrg scattered rhonchi, nl eff aaox3 1+le edema bl no jaundice diaphoresis Current Medications Generic Name Dose Route Start Last Admin Trade Name Freq PRN Reason Stop Dose Admin Acetaminophen 650 mg 01/25/18 04:45 Tylenol - PO Q6H PRN FEVER Albuterol/Ipratropium 1 amp 01/25/18 17:50 01/26/18 20:30 Duoneb - NEB 1 amp Q6H PRN Administration SHORTNESS OF BREATH Apixaban 5 mg 01/25/18 15:13 01/27/18 10:24 Eliquis - PO 5 mg BID [facility] Administration Ascorbic Acid 1,000 mg 01/25/18 10:00 01/27/18 10:23 Vitamin C - PO 1,000 mg DAILY [facility] Administration Aspirin 81 mg 01/24/18 22:15 01/27/18 10:23 Asa - PO 81 mg DAILY [facility] Administration Atorvastatin Calcium 20 mg 01/24/18 22:00 01/26/18 21:06 Lipitor - PO 20 mg HS [facility] Administration Calcium Carbonate/Cholecalciferol 1 tab 01/25/18 10:00 01/27/18 10:23 Os-Paco 500+D - PO 1 tab BID [facility] Administration Cyanocobalamin 100 mcg 01/25/18 10:00 01/27/18 10:26 Vitamin B12 - PO 100 mcg DAILY [facility] Administration Docusate Sodium 100 mg 01/26/18 12:45 01/27/18 10:23 Colace - PO 100 mg BID [facility] Administration Azithromycin 500 mg/ Dextrose 250 mls @ 250 mls/hr 01/25/18 10:00 01/27/18 11 :33 IVPB 250 mls/hr DAILY [facility] Administration Piperacillin Sod/Tazobactam 50 mls @ 100 mls/hr 01/25/18 10:30 01/27/18 10:24 Sod 3.375 gm/ Dextrose IVPB 100 mls/hr Q8H-IV [facility] Administration Protocol Isosorbide Mononitrate 60 mg 01/25/18 10:00 01/27/18 10:23 Imdur - PO 60 mg DAILY [facility] Administration Metoprolol Succinate 50 mg 01/25/18 10:00 01/27/18 10:23 Toprol Xl - PO 50 mg DAILY [facility] Administration Multivitamins 1 each 01/25/18 10:00 01/27/18 10:23 Total B With C - PO 1 each DAILY [facility] Administration Polyethylene Glycol 17 gm 01/26/18 12:45 01/27/18 10:24 Miralax (For Daily Use) - PO Not Given BID [facility] Tamsulosin HCl 0.4 mg 01/25/18 08:30 01/27/18 08:52 Flomax - PO 0.4 mg DAILY@0830 [facility] Administration CBC, BMP 01/27/18 06:30 01/27/18 06:30 a/p: 87 year old male with underlying history of CAD s/p PCI/stent, [place], thoracic aortic aneurysm, HTN, SSS s/p PPM, hypercholesterolemia, BPH, squamous cell CA, prostate CA and AF who presented with fever, chills, non-productive cough and shortness of breath. Clinical presentation c/w pneumonia: -cont abx per ID, symptomatically improving Permanent AF [id number] score of 4: -cont bb, eliquis htn: -cont current meds hld: -cont statin CAD h/o [place] and PCI: -stable, no angina/acs -cont bb, statin, asa, imdur Thoracic aortic aneurysm: -cont bb, bp control sss s/p ppm: -stable, outpt monitoring
[2018-01-27] MEDS: ATORVASTATIN CA 20 MG TABLET (FP) PO SCH (22:36)
[2018-01-28] MEDS ORDERED: DEXTROSE 5%-WATER - 50 ML IVPB ONE ×2 (01:07→09:14)
[2018-01-28] MEDS ORDERED: PIPERACILLIN/TAZOBACTAM 3.375 GM VIAL IVPB ONE ×2 (01:07→09:14)
[2018-01-28] MEDS: PIPERACILLIN/TAZOB 3.375 GM 3.375 GM in DEXTROSE 5%-WATER - 50 ML IVPB SCH ×2 (01:14→10:09)
[2018-01-28 07:27] LABS: CHLORIDE 101 mmol/L (98-107); POTASSIUM 3.6 mmol/L (3.5-5.1); SODIUM 141 mmol/L (136-145)
[2018-01-28 07:28] LABS: BASO % 0.3 % (0-2.0); EOS % 2.6 % (0-4.5); HEMATOCRIT 38.1 % (35.4-49); LYMPH % 12.7 % (8-40); MCH 31.2 pg (25.7-33.7); MEAN CELL VOLUME 91.7 fl (80-96); MEAN PLT VOLUME 10.2 fl (7.5-11.1); MONO % 6.1 % (3.8-10.2); NEUT % 78.3 % (42.8-82.8); PLATELET COUNT 200 K/MM3 (134-434); RBC 4.16 M/mm3 (4.00-5.60); RDW 13.8 % (11.9-15.9); WHITE BLOOD COUNT 8.4 K/mm3 (4.0-10.0)
[2018-01-28 07:31] LABS: ANION GAP 8 (8-16); BLOOD UREA NITROGEN 16 mg/dL (7-18); CALCIUM 9.3 mg/dL (8.5-10.1); CO2 32 mmol/L (21-32); CREATININE 0.8 mg/dL (0.7-1.3); GLUCOSE,RANDOM 90 mg/dL (74-106)
[2018-01-28] MEDS: TAMSULOSIN HCL 0.4 MG CAP.ER.24H (FP) PO SCH (08:29)
[2018-01-28] MEDS: VITAMIN B COMPLEX W/C COMBO TABLET (FP) PO SCH (10:09)
[2018-01-28] MEDS: APIXABAN 5 MG TABLET PO SCH (10:10)
[2018-01-28] MEDS: ASCORBIC ACID 500 MG TABLET (FP) PO SCH (10:10)
[2018-01-28] MEDS: CALCIUM 500MG/VIT-D 200 UNITS COMBO TABLET (FP) PO SCH (10:10)
[2018-01-28] MEDS: CYANOCOBALAMIN (VITAMIN B-12) 100 MCG TABLET PO SCH (10:10)
[2018-01-28] MEDS: DOCUSATE SODIUM 100 MG CAPSULE (FP) PO SCH (10:10)
[2018-01-28] MEDS: ASPIRIN 81 MG CHEWABLE TABLETS PO SCH (10:10)
[2018-01-28] MEDS: ISOSORBIDE MONONITRATE 60 MG TAB.SR.24H (FP) PO SCH (10:10)
[2018-01-28] MEDS: POLYETHYLENE GLYCOL 3350 119 GM BTL PO SCH (10:10)
[2018-01-28 10:51] VITALS: TEMP 97.8
[2018-01-28] MEDS: AZITHROMYCIN IVPB 500 MG in DEXTROSE 5%-WATER - 250 ML IVPB SCH (10:56)
[2018-01-28 13:57] VITALS: BP 128/58; PULSE 75
--- NOTE | 2018-01-28 13:58 | PN ---
Progress Note, Physician Chief Complaint: Mr Magallanes complains of yellow stool but otherwise is feeling well. Denies cp, sob, n/v and is asking to go home. - Current Medication List Current Medications: Active Medications Acetaminophen (Tylenol -) 650 mg PO Q6H PRN PRN Reason: FEVER Albuterol/Ipratropium (Duoneb -) 1 amp NEB Q6H PRN PRN Reason: SHORTNESS OF BREATH Last Admin: 01/26/18 20:30 Dose: 1 amp Apixaban (Eliquis -) 5 mg PO BID [facility] Last Admin: 01/28/18 10:10 Dose: 5 mg Ascorbic Acid (Vitamin C -) 1,000 mg PO DAILY [facility] Last Admin: 01/28/18 10:10 Dose: 1,000 mg Aspirin (Asa -) 81 mg PO DAILY [facility] Last Admin: 01/28/18 10:10 Dose: 81 mg Atorvastatin Calcium (Lipitor -) 20 mg PO HS [facility] Last Admin: 01/27/18 22:36 Dose: 20 mg Calcium Carbonate/Cholecalciferol (Os-Paco 500+D -) 1 tab PO BID [facility] Last Admin: 01/28/18 10:10 Dose: 1 tab Cyanocobalamin (Vitamin B12 -) 100 mcg PO DAILY [facility] Last Admin: 01/28/18 10:10 Dose: 100 mcg Docusate Sodium (Colace -) 100 mg PO BID [facility] Last Admin: 01/28/18 10:10 Dose: 100 mg Azithromycin 500 mg/ Dextrose 250 mls @ 250 mls/hr IVPB DAILY [facility] Last Admin: 01/28/18 10:56 Dose: 250 mls/hr Piperacillin Sod/Tazobactam (Sod 3.375 gm/ Dextrose) 50 mls @ 100 mls/hr IVPB Q8H-IV [facility]; Protocol Last Admin: 01/28/18 10:09 Dose: 100 mls/hr Isosorbide Mononitrate (Imdur -) 60 mg PO DAILY [facility] Last Admin: 01/28/18 10:10 Dose: 60 mg Metoprolol Succinate (Toprol Xl -) 50 mg PO DAILY [facility] Last Admin: 01/28/18 10:09 Dose: 50 mg Multivitamins (Total B With C -) 1 each PO DAILY [facility] Last Admin: 01/28/18 10:09 Dose: 1 each Polyethylene Glycol (Miralax (For Daily Use) -) 17 gm PO BID [facility] Last Admin: 01/28/18 10:10 Dose: Not Given Tamsulosin HCl (Flomax -) 0.4 mg PO DAILY@0830 [facility] Last Admin: 01/28/18 08:29 Dose: 0.4 mg - Objective Vital Signs: Vital Signs Temperature 36.6 C 01/28/18 10:00 Pulse Rate 84 01/28/18 10:00 Respiratory Rate 18 01/28/18 10:00 Blood Pressure 144/79 01/28/18 10:00 O2 Sat by Pulse Oximetry (%) 97 01/28/18 09:00 Constitutional: Yes: Well Nourished, No Distress, Calm Cardiovascular: Yes: Regular Rate and Rhythm. No: Gallop, Murmur, Rub Respiratory: Yes: Regular, CTA Bilaterally. No: Rales, Rhonchi, Wheezes Gastrointestinal: Yes: Normal Bowel Sounds, Soft. No: Distention, Tenderness Extremities: Yes: WNL Edema: Yes Edema: LLE: 2+, RLE: 2+ Labs: CBC, BMP 01/28/18 06:00 01/28/18 06:00 INR, PTT INR 1.64 (0.82-1.09) H 01/24/18 16:30 Problem List - Problems (1) PNA (pneumonia) Code(s): J18.9 - PNEUMONIA, UNSPECIFIED ORGANISM Qualifiers: Pneumonia type: due to unspecified organism Laterality: right Lung location: lower lobe of lung Qualified Code(s): J18.1 - Lobar pneumonia, unspecified organism (2) HLD (hyperlipidemia) Code(s): E78.5 - HYPERLIPIDEMIA, UNSPECIFIED Qualifiers: Hyperlipidemia type: pure hypercholesterolemia Qualified Code(s): E78.00 - Pure hypercholesterolemia, unspecified; E78.0 - Pure hypercholesterolemia (3) Sepsis Code(s): A41.9 - SEPSIS, UNSPECIFIED ORGANISM Qualifiers: Sepsis type: sepsis due to unspecified organism Qualified Code(s): A41.9 - Sepsis, unspecified organism (4) Atrial fibrillation Code(s): I48.91 - UNSPECIFIED ATRIAL FIBRILLATION Qualifiers: Atrial fibrillation type: chronic Qualified Code(s): I48.2 - Chronic atrial fibrillation (5) BPH (benign prostatic hyperplasia) Code(s): N40.0 - BENIGN PROSTATIC HYPERPLASIA WITHOUT LOWER URINRY TRACT SYMP Qualifiers: Lower urinary tract symptom presence: symptoms absent Qualified Code(s): N40.0 - Benign prostatic hyperplasia without lower urinary tract symptoms (6) CAD (coronary artery disease) Code(s): I25.10 - ATHSCL HEART DISEASE OF [place] CORONARY ARTERY W/O ANG PCTRS Qualifiers: [place] vs. transplanted heart: [place] heart (7) HTN (hypertension) Code(s): I10 - ESSENTIAL (PRIMARY) HYPERTENSION Qualifiers: Hypertension type: essential hypertension Qualified Code(s): I10 - Essential (primary) hypertension (8) Pedal edema Code(s): R60.0 - LOCALIZED EDEMA (9) Diarrhea Code(s): R19.7 - [place], UNSPECIFIED Assessment/Plan (1) PNA (pneumonia) Assessment/Plan: -continue IV antibiotics today -change to oral antibiotics with plan for discharge Code(s): J18.9 - PNEUMONIA, UNSPECIFIED ORGANISM (2) HLD (hyperlipidemia) Assessment/Plan: -continue statin Code(s): E78.5 - HYPERLIPIDEMIA, UNSPECIFIED (3) Sepsis Assessment/Plan: -resolved -continue antibiotics Code(s): A41.9 - SEPSIS, UNSPECIFIED ORGANISM Qualifiers: Sepsis type: sepsis due to unspecified organism Qualified Code(s): A41.9 - Sepsis, unspecified organism (4) Atrial fibrillation Assessment/Plan: -continue toprol xl and eliquis Code(s): I48.91 - UNSPECIFIED ATRIAL FIBRILLATION Qualifiers: Atrial fibrillation type: chronic Qualified Code(s): I48.2 - Chronic atrial fibrillation (5) BPH (benign prostatic hyperplasia) Assessment/Plan: -continue flomax Code(s): N40.0 - BENIGN PROSTATIC HYPERPLASIA WITHOUT LOWER URINRY TRACT SYMP Qualifiers: Lower urinary tract symptom presence: symptoms absent Qualified Code(s): N40.0 - Benign prostatic hyperplasia without lower urinary tract symptoms (6) CAD (coronary artery disease) Assessment/Plan: -quiescent Code(s): I25.10 - ATHSCL HEART DISEASE OF [place] CORONARY ARTERY W/O ANG PCTRS Qualifiers: [place] vs. transplanted heart: [place] heart (7) HTN (hypertension) Assessment/Plan: -controlled -continue current management Code(s): I10 - ESSENTIAL (PRIMARY) HYPERTENSION Qualifiers: Hypertension type: essential hypertension Qualified Code(s): I10 - Essential (primary) hypertension (8) Pedal edema Assessment/Plan: -cardiology note reviewed -unchanged Code(s): R60.0 - LOCALIZED EDEMA (9) Diarrhea -c diff negative -add lactobacillus
[2018-01-28] MEDS ORDERED: LACTOBACILLUS ACIDOPHILUS 1 TABLET PO SCH (14:45)
--- NOTE | 2018-01-28 15:24 | PN ---
Progress Note, Physician History of Present Illness: patient stable no new issues motility studies noted no complaints - Current Medication List Current Medications: Active Medications Acetaminophen (Tylenol -) 650 mg PO Q6H PRN PRN Reason: FEVER Albuterol/Ipratropium (Duoneb -) 1 amp NEB Q6H PRN PRN Reason: SHORTNESS OF BREATH Last Admin: 01/26/18 20:30 Dose: 1 amp Apixaban (Eliquis -) 5 mg PO BID [facility] Last Admin: 01/28/18 10:10 Dose: 5 mg Ascorbic Acid (Vitamin C -) 1,000 mg PO DAILY [facility] Last Admin: 01/28/18 10:10 Dose: 1,000 mg Aspirin (Asa -) 81 mg PO DAILY [facility] Last Admin: 01/28/18 10:10 Dose: 81 mg Atorvastatin Calcium (Lipitor -) 20 mg PO HS [facility] Last Admin: 01/27/18 22:36 Dose: 20 mg Calcium Carbonate/Cholecalciferol (Os-Paco 500+D -) 1 tab PO BID [facility] Last Admin: 01/28/18 10:10 Dose: 1 tab Cyanocobalamin (Vitamin B12 -) 100 mcg PO DAILY [facility] Last Admin: 01/28/18 10:10 Dose: 100 mcg Docusate Sodium (Colace -) 100 mg PO BID [facility] Last Admin: 01/28/18 10:10 Dose: 100 mg Azithromycin 500 mg/ Dextrose 250 mls @ 250 mls/hr IVPB DAILY [facility] Last Admin: 01/28/18 10:56 Dose: 250 mls/hr Piperacillin Sod/Tazobactam (Sod 3.375 gm/ Dextrose) 50 mls @ 100 mls/hr IVPB Q8H-IV [facility]; Protocol Last Admin: 01/28/18 10:09 Dose: 100 mls/hr Isosorbide Mononitrate (Imdur -) 60 mg PO DAILY [facility] Last Admin: 01/28/18 10:10 Dose: 60 mg Lactobacillus Acidophilus (Bacid -) 1 tab PO DAILY [facility] Metoprolol Succinate (Toprol Xl -) 50 mg PO DAILY [facility] Last Admin: 01/28/18 10:09 Dose: 50 mg Multivitamins (Total B With C -) 1 each PO DAILY [facility] Last Admin: 01/28/18 10:09 Dose: 1 each Polyethylene Glycol (Miralax (For Daily Use) -) 17 gm PO BID [facility] Last Admin: 01/28/18 10:10 Dose: Not Given Tamsulosin HCl (Flomax -) 0.4 mg PO DAILY@0830 [facility] Last Admin: 01/28/18 08:29 Dose: 0.4 mg - Objective Vital Signs: Vital Signs Temperature 97.8 F 01/28/18 13:55 Pulse Rate 75 01/28/18 13:55 Respiratory Rate 20 01/28/18 13:55 Blood Pressure 128/58 01/28/18 13:55 O2 Sat by Pulse Oximetry (%) 97 01/28/18 09:00 Constitutional: Yes: No Distress, Calm Cardiovascular: Yes: Regular Rate and Rhythm Respiratory: Yes: Regular, CTA Bilaterally Gastrointestinal: Yes: Normal Bowel Sounds, Soft Musculoskeletal: Yes: WNL Extremities: Yes: WNL Neurological: Yes: Alert, Oriented Psychiatric: Yes: Alert, Oriented Labs: CBC, BMP 01/28/18 06:00 01/28/18 06:00 INR, PTT INR 1.64 (0.82-1.09) H 01/24/18 16:30 Assessment/Plan This is a 87 y/o man PMH CAD, s/p stent, PPM, Afib (on Eliquis), CHF, ND x2, Thoracic Aortic Aneurysm, Pnuemonia (2017), HTN, HLD, BPH, Squamous Cell Ca ( face, surgery), Prostate Ca. Admitted for Sepsis secondary to Community Acquired Pneumonia, Acute CHF Exacerbation. This patient now has second episode of pneumonia and that too also on the same side Sepsis Community Acquired Pneumonia Afib CAD Hypertension Hyperlipidemia BPH plan continue abx doing well resp support incentive sergey can be switched to oral augmentin tomorrow for another 4 days
--- NOTE | 2018-01-28 15:51 | DS ---
Physical Examination Vital Signs: Vital Signs Temperature 36.6 C 01/28/18 13:55 Pulse Rate 75 01/28/18 13:55 Respiratory Rate 20 01/28/18 13:55 Blood Pressure 128/58 01/28/18 13:55 O2 Sat by Pulse Oximetry (%) 97 01/28/18 09:00 Labs: CBC, BMP 01/28/18 06:00 01/28/18 06:00 Discharge Summary Reason For Visit: PNEUMONIA Current Active Problems CHF exacerbation (Acute) Diarrhea (Acute) HLD (hyperlipidemia) (Acute) PNA (pneumonia) (Acute) Sepsis (Acute) Condition: Good - Instructions Diet, Activity, Other Instructions: resume previous diet and activity Referrals: Taj Moran MD [Primary Care Provider] - Disposition: HOME - Home Medications Comprehensive Discharge Medication List: Ambulatory Orders Ascorbate Calcium [Vitamin C] 1,000 mg PO DAILY 11/20/14 Aspirin [ASA -] 81 mg PO DAILY 11/20/14 Atorvastatin Ca [Lipitor] 20 mg PO HS 11/20/14 Cyanocobalamin [Vitamin B12 -] 100 mcg PO DAILY 11/20/14 Isosorbide Mononitrate [Imdur] 60 mg PO DAILY 11/20/14 Metoprolol Succinate [Toprol Xl] 50 mg PO DAILY 11/20/14 Tamsulosin HCl [Flomax -] 0.4 mg PO DAILY 11/20/14 Ubidecarenone [Co Q-10] 10 mg PO DAILY 11/20/14 Vitamin B Complex 1 each PO DAILY 11/20/14 Apixaban [Eliquis] 2.5 mg PO BID 02/16/17 Paco/D3/Mag11/Zinc/Electrical Calibrator/Lionel/Bor [Caltrate 600+D Plus Tablet] 1 tab PO BID Saw Arthur Fruit [Saw Arthur] 450 mg PO DAILY 02/16/17 Amox-Tr/K Cl [Augmentin - 875Mg Tablet] 1 tab PO BID #9 tablet 01/28/18 Lactobacillus Acidophilus [Bacid -] 1 tab PO DAILY #7 tab 01/28/18
== END 2018-01-28 16:37 | disposition home or self-care (01) | DRG 871 ==
LOC: JER 15:35 → JERBED 18:25 → J7W 01-25 00:42
PROVIDERS: ADMIT Internal Medicine; ATTEND Internal Medicine
DX: A41.9 Sepsis, unspecified organism (principal); J18.9 Pneumonia, unspecified organism; I48.2 Chronic atrial fibrillation; E78.5 Hyperlipidemia, unspecified; N40.0 Benign prostatic hyperplasia without lower urinary tract symptoms; Z98.61 Coronary angioplasty status; I11.0 Hypertensive heart disease with heart failure; I50.9 Heart failure, unspecified; R19.7 Diarrhea, unspecified; R60.0 Localized edema; I25.119 Atherosclerotic heart disease of native coronary artery with unspecified angina pectoris
CPT/HCPCS: 36415; 71045-TC-FY; 74230-TC-FY; 80048; 80053; 81003; 81015; 82803; 83605; 83735; 83880; 84100; 84484; 85025; 85610; 85730; 87040; 87086; 87324; 87449; 87899; 92611-GN; 93005; 93010; 94640; 97116-GP; 97161-GP; 99285-25; J0131; J7620